=== PATIENT | female | born 1940 | race Caucasian/White ===

== ENCOUNTER 2018-04-07 09:46 | Inpatient (IN) ==
[2018-04-07] MEDS ORDERED: SODIUM CHLORIDE 0.9% 1000ML 1,000 ML IV SCH (10:15)
--- NOTE | 2018-04-07 10:23 | XRay Report ---
XR chest 1V portable CLINICAL HISTORY: weakness COMPARISON STUDY: Chest radiograph October 28, 2009. FINDINGS: There is no pneumothorax. Small to moderate right and small left pleural effusions are note d. There is pulmonary vascular congestion with suspected mild pulmonary edema. There is right infrahi lar mass-like opacity with volume loss. There is mild left basilar opacity. There is no pneumothorax. IMPRESSION: 1. Mild pulmonary edema with small to moderate right and small left pleural effusions. 2. Rotated study with mass-like right infrahilar opacity with volume loss. This may reflect pneumonia , atelectasis or neoplastic process. Short-term follow-up PA and lateral chest radiographs are recomm ended to ensure resolution. Electronically signed by: Melchor Olivas M.D. 04/07/2018 10:21 AM
[2018-04-07 10:41] LABS: Basophils # (auto) 0.02 K/uL (0-0.2); Basophils % (auto) 0.3 %; Eosinophils # (auto) 0.01 K/uL (0-0.5); Eosinophils % (auto) 0.2 %; Hemoglobin 12.2 g/dL (12.0-16.0); Immature Granulocytes # (auto) 0.01 K/uL (0.00-0.02); Immature Granulocytes % (auto) 0.2 %; Lymphocytes # (auto) 0.56 K/uL (1.2-3.4); Lymphocytes % (auto) 9.2 %; Mean Corpuscular Hgb Conc 30.5 g/dL (32-36); Mean Corpuscular Volume 77.1 fL (80-100); Mean Platelet Volume 11.2 fL (7.4-10.4); Monocytes # (auto) 0.61 K/uL (0.11-0.59); Neutrophils % (auto) 80.1 %; Platelet Count 278 K/uL (130-400); RDW Standard Deviation 52.5 fL (36.4-46.3); Red Blood Count 5.19 M/uL (4.2-5.4); White Blood Count 6.11 K/uL (4.8-10.8)
[2018-04-07 10:53] LABS: Appearance Urine Cloudy (Clear); Bacteria Urine Automated Negative (Negative); Color Urine Dark Yellow; Glucose Urine UA Negative (Negative); Ketones Urine Trace (Negative); Leukocyte Esterase Urine Negative (Negative); Nitrite Urine Negative (Negative); Protein Urine Trace (Negative); Specific Gravity Urine 1.022 (1.000-1.030); Urobilinogen Urine Negative (Negative)
[2018-04-07 10:57] LABS: Alanine Aminotransferase 14 U/L (12-78); Albumin Level 3.1 gm/dl (3.4-5.0); Aspartate Aminotransferase 16 U/L (15-37); BUN Creatinine Ratio 18.8 (10-20); Blood Urea Nitrogen 27 mg/dl (7-18); Calcium 8.6 mg/dl (8.5-10.1); Carbon Dioxide 22 mmol/L (21-32); Chloride 108 mmol/L (98-107); Est GFR (African American) 39.9; Est GFR (Non-African American) 34.5; Glucose 91 mg/dl (70-99); Potassium 4.3 mmol/L (3.5-5.1); Sodium 138 mmol/L (136-145)
[2018-04-07 11:08] LABS: Albumin Globulin Ratio 0.8 (0.9-2); Alkaline Phosphatase 74 U/L (45-117); Bilirubin,Total 1.2 mg/dl (0.2-1); Creatine Kinase 159 U/L (26-192); Globulin 3.8 gm/dl (2.5-4.0); Total Protein 6.9 gm/dl (6.4-8.2); Troponin I 0.015 ng/ml (0-0.045)
[2018-04-07 11:11] LABS: Bilirubin Urine Negative (Negative); Ictotest Urine Negative (Negative)
[2018-04-07 11:22] LABS: Mucus Urine Present (None Prsent)
[2018-04-07 11:23] LABS: Epithelial Cell Urine Auto 0-5 /lpf (0-5)
--- NOTE | 2018-04-07 11:30 | CT Scan Report ---
CT OF THE HEAD WITHOUT CONTRAST CLINICAL HISTORY: Confusion. COMPARISON STUDY: No previous studies for comparison. CT DOSE: 537.48 mGy.cm TECHNIQUE: Helical axial images of the head were obtained without IV contrast. Automated exposure con trol was utilized for the study. A dose lowering technique was utilized adhering to the principles o f ALARA. FINDINGS: No acute intracranial hemorrhage, midline shift or mass effect is present. Brain findings n ormal for age. Ventricular system is unremarkable. Basilar cisterns are patent. There are no extra-ax ial collections. White matter hypodensity suggests small vessel disease. There are no findings to sug gest acute dural sinus thrombosis or acute territorial infarct. There are no significant calvarial ab normalities. Scattered venous gas likely from IV insertion is noted. IMPRESSION: No acute intracranial findings. Electronically signed by: Melchor Olivas M.D. 04/07/2018 11:29 AM
[2018-04-07] MEDS ORDERED: LEVOFLOXACIN/D5W 750 MG/150 ML BAG IV STA (12:08)
[2018-04-07] MEDS ORDERED: INFLUENZA ADMINISTRATION CHARGE ONE (14:30)
[2018-04-07] MEDS ORDERED: PNEUMOCOCCAL ADMINISTRATION CHARGE ONE (14:30)
[2018-04-07] MEDS ORDERED: PNEUMOCOCCAL POLYSACCHARIDES 25 MCG/0.5 ML VIAL/SYR IM ONE (14:30)
[2018-04-07] MEDS ORDERED: INFLUENZA VACCINE HIGH DOSE 65+ 0.5 ML SYR IM ONE (14:30)
--- NOTE | 2018-04-07 14:47 | History & Physical Report ---
Date of Service April 07, 2018 Assessment & Plan (1) Altered mental status: Presented with acute confusion with the history of ongoing confusion for 2 months No documented history of dementia May be contributed by lung mass/pneumonia and acute renal impairment Will observe in telemetry unit Present on Admission?: Yes (2) Pneumonia: CXR reported as mass-like right infrahilar opacity with volume loss Malignancy has to be ruled out For now we will treat with antibiotic Will need to have a PA and lateral view for further evaluation in a day or 2 May need a CAT scan of the chest and pulmonary evaluation (3) Mass of right lung: The x-ray was poor in quality Rule out any malignancy Has to have dedicated PA and lateral view in a day or 2 and/or CAT scan of the chest Likely to need pulmonary evaluation for further management and diagnosis (4) Hypertension: Has been on lisinopril for blood pressure control With acute kidney injury, hold lisinopril for now May need to change antihypertensive (5) Hypothyroidism: Has been on 112 mcg of thyroxine Not sure if she has been taking TSH-we will check free T3 and free T4 Continue with current dose of supplement (6) Acute kidney injury superimposed on chronic kidney disease: Seems to be dehydrated with acute kidney kidney injury Chest x-ray reported as mild congestion Will get echo to evaluate LV function For now cautious amount of IV fluid and monitor kidney function (7) Major depressive disorder: Has not been taking any medicine now May need to have psychiatric evaluation while in the hospital Also has history of problem with swallowing We will get speech evaluation while in the hospital Discussed with and son Warned against possible malignancy History of Present Illness Chief Complaint: Acute confusion with occasional events for the last 2 months. Occasional dizziness and shortness of breath. Primary Care Provider: Shabbir Amaya She is a 77-year-old female with significant past medical history of major depression chronic kidney disease stage III anxiety estimate esophageal reflux hypertension and hypothyroidism apparently has not been to her primary care for more than 5 years. She was brought into the emergency room with acute confusion with a history of on and off confusion for more than 2 months. The history is taken from the son, [id number] and the . According to the she has been complaining of some shortness of breath on exertion and also occasional dizziness but no significant history of fall. The also reported that she has been having some problem with swallowing recently. The family members are not aware whether the patient has been losing any weight are not. She has not had any preventive workup for a long time. In ER she was confused but otherwise without any symptoms and distress at presentation. Apparent investigation revealed that she has right perihilar mass and TSH of 27 with acute renal injury. She was admitted to telemetry unit for continuation of care. Allergies Allergy/AdvReac Type Severity Reaction Status Date / Time adhesive Allergy Unknown allergy to Verified 04/07/18 11:11 tape, bandaids Beta-Blockers AdvReac Severe low heart Verified 04/07/18 11:11 (Beta-Adrenergic Bloc rate Home Medications Home Medications Medication Instructions Recorded Confirmed Type levothyroxine 112 mcg PO DAILY 04/07/18 04/07/18 History lisinopril 40 mg PO DAILY 04/07/18 04/07/18 History ranitidine HCl 300 mg PO DAILY 04/07/18 04/07/18 History Past Med/Surg History Medical History Hypertension (Chronic) Social History Current Living Situation: Spouse Other Information That Helps Us Care for You: No Feels Safe at Home: Yes Safety Concerns: Feels Safe At This Time Smoking Status: Former smoker Do You Dip or Chew Tobacco: No Smoking End Date: 1989 Second Hand Exposure: No Tobacco Cessation Education Requested by Patient: No Hx Alcohol Use: No Hx Substance Use: No Beliefs That Will Affect Care: None Preferred Language: Polish Communication Ability: Effective Communication Ability Comment: some confusion Human Resources Clerk Required: No Review of Systems All systems reviewed & are unremarkable except as noted in HPI & below (The history and the system review was done through family members and the patient) Physical Exam 2 Vital Signs (Past 24 Hours): Last Vital Signs Temp 36.7 C 04/07/18 09:48 Pulse 113 H 04/07/18 13:55 Resp 18 04/07/18 13:55 BP 104/81 04/07/18 13:55 Pulse Ox 91 04/07/18 13:55 Physical Exam: Lying in bed comfortably Constitutional: WD/WN, vitals as above (No apparent distress at rest) + thin (Almost cachectic) Eyes: PERRL, conjunctivae normal, anicteric sclerae ENMT: external ear and nose normal, oropharynx normal Respiratory: normal respiratory effort and + cough (Occasional cough) Auscultation: + diminished lung sounds (Bilaterally at the base with probable bronchial sound right base) Cardiovascular: Rate/Rhythm: regular rate and regular rhythm Heart Sounds: normal S1 and normal S2 Gastrointestinal (Abdomen): Inspection/Auscultation: abdomen normal to inspection and normal bowel sounds Percussion/Palpation: abdomen soft Musculoskeletal: No acute arthritis Neurologic: awake and + confused Generalized weakness Results & Data Laboratory Results Short CBC 04/07/18 Range/Units 10:25 WBC 6.11 (4.8-10.8) K/uL Hgb 12.2 (12.0-16.0) g/dL Hct 40.0 (37-47) % Plt Count 278 (130-400) K/uL BMP 04/07/18 10:25 Sodium 138 Potassium 4.3 Chloride 108 H Carbon Dioxide 22 BUN 27 H Creatinine 1.44 H Glucose 91 Calcium 8.6 Cardiac Enzymes 04/07/18 Range/Units 10:25 Total Creatine Kinase 159 (26-192) U/L Troponin I 0.015 (0-0.045) ng/ml Liver Function 04/07/18 Range/Units 10:25 Total Bilirubin 1.2 H (0.2-1) mg/dl AST 16 (15-37) U/L ALT 14 (12-78) U/L Alkaline Phosphatase 74 (45-117) U/L Albumin 3.1 L (3.4-5.0) gm/dl Urine 04/07/18 Range/Units 10:26 Urine Color Dark Yellow Urine Appearance Cloudy H (Clear) Urine pH 5.0 (4.5-7.5) Ur Specific [place] 1.022 (1.000-1.030) Urine Protein Trace H (Negative) Urine Glucose (UA) Negative (Negative) Medications Administered Current Inpatient Medications Enoxaparin Sodium (Lovenox) 40 mg SQ Q24H [facility] Stop: 05/07/18 13:14 Sodium Chloride (Nss 1000ml) 1,000 mls @ 125 mls/hr IV .Q8H [facility] Stop: 04/07/18 18:14 Last Admin: 04/07/18 10:36 Dose: 125 mls/hr Levofloxacin/Dextrose (Levaquin/D5w) 750 mg in 150 mls @ 100 mls/hr IV Q24H [facility] Stop: 04/14/18 14:29 Sodium Chloride (Nss) 500 mls @ 80 mls/hr IV .Q6H15M [facility] Stop: 04/08/18 09:14 Code Status & VTE Plan Code Status Full code VTE Prophylaxis Plan VTE Prophylaxis will be ordered: Yes _ (1) Altered mental status Altered mental status type: unspecified Coma depth: Coma timing: Qualified Code(s): R41.82 - Altered mental status, unspecified (2) Pneumonia Aspiration pneumonia type: Laterality: right Lung location: lower lobe of lung Pneumonia type: due to unspecified organism Qualified Code(s): J18.1 - Lobar pneumonia, unspecified organism
[2018-04-07] MEDS ORDERED: LEVOFLOXACIN/D5W 750 MG/150 ML BAG IV SCH (15:30)
[2018-04-07] MEDS ORDERED: ENOXAPARIN INJ 40 MG/0.4 ML SYR SQ SCH (16:00)
[2018-04-07] MEDS: SODIUM CHLORIDE 0.9% 1000ML 1,000 ML IV SCH (16:16)
[2018-04-07] MEDS ORDERED: LEVOFLOXACIN CONSULT ACTIVE PRN (16:33)
--- NOTE | 2018-04-07 19:18 | Emergency Department Note ---
Entered by Kailyn Antonio acting as a scribe for ED Provider Note CHIEF COMPLAINT: Confusion HISTORY OF PRESENT ILLNESS: The patient is a 77 year old female who presents to the Emergency Room with complaints of worsening confusion that began several months prior to arrival, per the patient's family. The patient's family states that they had a conversation with the patient last night who stated that she did not remember how she got into her house, being , and was unfamiliar with her house. The patient's family states that the patient has not been to the doctor in several years. Per the patient's family, the patient was previously taking thyroid medication, blood pressure medication, and reflux medication. The patient states that she is still prescribed this medication. The patient states that she remembers previously being on a blood thinner. The patient states that she has a headache and shortness of breath occasionally. The patient states that she was dizzy this morning, and states that she is occasionally lightheaded. Per the patient's family, the patient states that her "house is magical" and "someone is changing the clocks in the house". Pt denies LOC, fevers, chills, diaphoresis, visual changes, neck pain, chest pain, nausea, vomiting, abdominal pain, back pain, melena, hematochezia, urinary symptoms, numbness, weakness, lymphadenopathy, rash, or other complaints. REVIEW OF SYSTEMS: See HPI for pertinent positives and negatives. A total of ten systems were reviewed and were otherwise negative. PMHx/PSHx: Hypertension SOCIAL HISTORY: Patient lives at home. PHYSICAL EXAM: GENERAL: Awake, alert, agitated-appearing, in no distress HENT: Normocephalic, atraumatic. Oropharynx unremarkable. EYES: Normal conjunctiva. Sclera non-icteric. NECK: Supple. No nuchal rigidity. FROM. No masses. RESPIRATORY: Clear to auscultation. No wheezes. No rales. Normal respiratory effort. CARDIAC: Normal rate. Normal rhythm. No murmurs. No rubs. Extremities warm and well perfused. Pulses equal. No JVD. GI: Soft, non-distended. No tenderness to palpation. No rebound or guarding. No masses. RECTAL: Deferred. MUSCULOSKELETAL: Atraumatic. Chest examination reveals no tenderness. The back is symmetrical on inspection without obvious abnormality. There is no CVA tenderness to palpation. No joint edema. LOWER EXTREMITIES: Calves are equal size bilaterally and non-tender. 1+ pitting edema in the bilteral lower extremities. No discoloration. NEURO: Altered sensorium. No sensory or motor deficits noted. Oriented to person only. SKIN: No rash or jaundice noted. EMERGENCY DEPARTMENT COURSE: 1007: Past medical records reviewed. The patient was evaluated in room B7, and a complete history and physical examination were performed. 1200: I checked on the patient and updated her on the results. 1213: I discussed the case with Dr. Mcnulty Hospitalist who will further evaluate the patient. MEDICAL DECISION MAKING: Prior records/ancillary studies reviewed and summarized above. Nursing notes reviewed and agree them. Additional history obtained from family. The patient's history was concerning for altered mental status. Patient oriented to person only Differential diagnosis: Etiologies such as infection, hypoglycemia, electrolyte abnormalities, cardiac sources, intracerebral event, toxicologic, neurologic, as well as others were entertained. Physical examination: Patient was disoriented. ER treatment provided: IV Lock Normal saline hydration IV Levaquin On reassessment the patient felt somewhat better. Diagnostics interpretation by me: ECG: Sinus tachycardia noted The labs revealed an unremarkable CBC and chemistry panel except for mild dehydration. Cardiac markers negative. Urinalysis negative peer Imaging studies: CT scan of the head was negative. Chest x-ray was concerning for possible pneumonia or mass in the right chest. Consultation: A consultation was placed with the hospitalist. The case was discussed and diagnostics were reviewed. The patient was evaluated in the ER for further treatment. IMPRESSION: Altered mental status Pneumonia Right lung mass PLAN: Admit. The scribe's documentation has been prepared under my direction and personally reviewed by me in its entirety. I confirm that the note above accurately reflects all work, treatment, procedures, and medical decision making performed by me. Impression & Plan Altered mental status, Pneumonia, Mass of right lung Past Med/Surg History Medical History Hypertension (Chronic) Social History Current Living Situation: Spouse Other Information That Helps Us Care for You: No Feels Safe at Home: Yes Safety Concerns: Feels Safe At This Time Smoking Status: Former smoker Do You Dip or Chew Tobacco: No Smoking End Date: 1989 Second Hand Exposure: No Tobacco Cessation Education Requested by Patient: No Hx Alcohol Use: No Hx Substance Use: No Beliefs That Will Affect Care: None Preferred Language: Lao Communication Ability: Effective Communication Ability Comment: some confusion String Cutter Required: No Results & Data Vital Signs Vital Signs - 24 hr 04/07/18 09:48 04/07/18 10:35 04/07/18 12:23 Temperature 36.7 C Temperature Source Oral Sepsis Recent Fever Within 48 Hours No Sepsis New/Unexplained Change in Mental Status No Sepsis Action Taken by Nursing No Action Required Pulse Rate - Lying 110 H Pulse Rate - Sitting 112 H Pulse Rate - Standing 110 H Pulse Rate 117 H Pulse Rate [Right Apical] Pulse Rhythm [Right Apical] Pulse Strength [Right Apical] Respiratory Rate 20 Respiratory Effort / Characteristics Non-Labored Spontaneous Respiratory Depth Normal Respiratory Pattern Regular Blood Pressure - Lying 96/72 L Blood Pressure - Sitting 103/70 Blood Pressure- Standing 95/69 L Blood Pressure 100/67 Blood Pressure [Right Arm] Blood Pressure Mean 78 Blood Pressure Mean [Right Arm] Blood Pressure Position [Right Arm] Pulse Oximetry 94 97 Oxygen Delivery Method Room Air Room Air Room Air 04/07/18 13:55 Temperature Temperature Source Sepsis Recent Fever Within 48 Hours Sepsis New/Unexplained Change in Mental Status Sepsis Action Taken by Nursing Pulse Rate - Lying Pulse Rate - Sitting Pulse Rate - Standing Pulse Rate Pulse Rate [Right Apical] 113 H Pulse Rhythm [Right Apical] Regular Pulse Strength [Right Apical] Normal Respiratory Rate 18 Respiratory Effort / Characteristics Non-Labored Spontaneous Respiratory Depth Normal Respiratory Pattern Regular Blood Pressure - Lying Blood Pressure - Sitting Blood Pressure- Standing Blood Pressure Blood Pressure [Right Arm] 104/81 Blood Pressure Mean Blood Pressure Mean [Right Arm] 88 Blood Pressure Position [Right Arm] Lying Pulse Oximetry 91 Oxygen Delivery Method Room Air Home Medications Current Medication List: was personally reviewed by me Laboratory Data Attestation: I reviewed the patient's lab results. Result diagrams: 04/07/18 10:25 04/07/18 10:25 Lab Results 04/07/18 04/07/18 04/07/18 Range/Units 10:25 10:25 10:26 WBC 6.11 (4.8-10.8) K/uL RBC 5.19 (4.2-5.4) M/uL Hgb 12.2 (12.0-16.0) g/dL Hct 40.0 (37-47) % MCV 77.1 L (80-100) fL MCH 23.5 L (25-34) pg MCHC 30.5 L (32-36) g/dL RDW Std Deviation 52.5 H (36.4-46.3) fL RDW Coeff of Ran 19.0 H (11.5-14.5) % Plt Count 278 (130-400) K/uL MPV 11.2 H (7.4-10.4) fL Immature Gran % (Auto) 0.2 % Neut % (Auto) 80.1 % Lymph % (Auto) 9.2 % [place] % (Auto) 10.0 % Eos % (Auto) 0.2 % Baso % (Auto) 0.3 % Immature Gran # (Auto) 0.01 (0.00-0.02) K/uL Neut # (Auto) 4.90 (1.4-6.5) K/uL Lymph # (Auto) 0.56 L (1.2-3.4) K/uL [place] # (Auto) 0.61 H (0.11-0.59) K/uL Eos # (Auto) 0.01 (0-0.5) K/uL Baso # (Auto) 0.02 (0-0.2) K/uL Sodium 138 (136-145) mmol/L Potassium 4.3 (3.5-5.1) mmol/L Chloride 108 H (98-107) mmol/L Carbon Dioxide 22 (21-32) mmol/L Anion Gap 8.0 (3-11) BUN 27 H (7-18) mg/dl Creatinine 1.44 H (0.6-1.2) mg/dl Est Cr Clr Drug Dosing Not Reportable Est GFR ( Amer) 39.9 Est GFR (Non-Af Amer) 34.5 BUN/Creatinine Ratio 18.8 (10-20) Glucose 91 (70-99) mg/dl Calcium 8.6 (8.5-10.1) mg/dl Magnesium 2.0 (1.8-2.4) mg/dl Total Bilirubin 1.2 H (0.2-1) mg/dl AST 16 (15-37) U/L ALT 14 (12-78) U/L Alkaline Phosphatase 74 (45-117) U/L Total Creatine Kinase 159 (26-192) U/L Troponin I 0.015 (0-0.045) ng/ml Total Protein 6.9 (6.4-8.2) gm/dl Albumin 3.1 L (3.4-5.0) gm/dl Globulin 3.8 (2.5-4.0) gm/dl Albumin/Globulin Ratio 0.8 L (0.9-2) TSH 27.200 H (0.300-4.500) uIu/ml Urine Color Dark Yellow Urine Appearance Cloudy H (Clear) Urine pH 5.0 (4.5-7.5) Ur Specific [place] 1.022 (1.000-1.030) Urine Protein Trace H (Negative) Urine Glucose (UA) Negative (Negative) Urine Ketones Trace H (Negative) Urine Blood Negative (Negative) Urine Nitrite Negative (Negative) Urine Bilirubin Negative (Negative) Urine Urobilinogen Negative (Negative) Ur Leukocyte Esterase Negative (Negative) Urine WBC (Auto) 1-5 (0-5) /hpf Urine RBC (Auto) 0-4 (0-4) /hpf U Hyaline Cast (Auto) 5-10 H (0-5) /lpf U Epithel Cells (Auto) 0-5 (0-5) /lpf Urine Bacteria (Auto) Negative (Negative) Urine Mucus Present H (None Prsent) Administered Medications Enoxaparin Sodium (Lovenox) 40 mg SQ Q24H [facility] Stop: 05/07/18 15:59 Last Admin: 04/07/18 16:15 Dose: 40 mg Levofloxacin/Dextrose (Levaquin/D5w) 750 mg in 150 mls @ 100 mls/hr IV Q48H [facility] ; Protocol Stop: 04/14/18 15:29 Last Infusion: 04/07/18 18:31 Dose: 0 mls/hr Admin: 04/07/18 16:14 Dose: 100 mls/hr Sodium Chloride (Nss 1000ml) 1,000 mls @ 80 mls/hr IV .[id number] [facility] Stop: 04/08/18 09:44 Last Admin: 04/07/18 16:16 Dose: 80 mls/hr Ranitidine HCl (Zantac) 300 mg PO DAILY [facility] Stop: 05/07/18 15:14 Last Admin: 04/07/18 16:14 Dose: 300 mg Discontinued Medications Sodium Chloride (Nss 1000ml) 1,000 mls @ 125 mls/hr IV .Q8H [facility] Stop: 04/07/18 18:14 Last Infusion: 04/07/18 15:59 Dose: 0 mls/hr Admin: 04/07/18 10:36 Dose: 125 mls/hr Levofloxacin/Dextrose (Levaquin/D5w) 750 mg in 150 mls @ 100 mls/hr IV NOW STA Stop: 04/07/18 13:37 Last Admin: 04/07/18 15:41 Dose: Not Given Imaging Data Radiologist's Impression: Radiology results as stated below per my review and the radiologist's interpretation: XR chest 1V portable CLINICAL HISTORY: weakness COMPARISON STUDY: Chest radiograph October 28, 2009. FINDINGS: There is no pneumothorax. Small to moderate right and small left pleural effusions are noted. There is pulmonary vascular congestion with suspected mild pulmonary edema. There is right infrahilar mass-like opacity with volume loss. There is mild left basilar opacity. There is no pneumothorax. IMPRESSION: 1. Mild pulmonary edema with small to moderate right and small left pleural effusions. 2. Rotated study with mass-like right infrahilar opacity with volume loss. This may reflect pneumonia, atelectasis or neoplastic process. Short-term follow-up PA and lateral chest radiographs are recommended to ensure resolution. Electronically signed by: Melchor Olivas M.D. 04/07/2018 10:[address] OF THE HEAD WITHOUT CONTRAST CLINICAL HISTORY: Confusion. COMPARISON STUDY: No previous studies for comparison. CT DOSE: 537.48 mGy.cm TECHNIQUE: Helical axial images of the head were obtained without IV contrast. Automated exposure control was utilized for the study. A dose lowering technique was utilized adhering to the principles of ALARA. FINDINGS: No acute intracranial hemorrhage, midline shift or mass effect is present. Brain findings normal for age. Ventricular system is unremarkable. Basilar cisterns are patent. There are no extra-axial collections. White matter hypodensity suggests small vessel disease. There are no findings to suggest acute dural sinus thrombosis or acute territorial infarct. There are no significant calvarial abnormalities. Scattered venous gas likely from IV insertion is noted. IMPRESSION: No acute intracranial findings. Electronically signed by: Melchor Olivas M.D. 04/07/2018 11:29 AM ECG Data Attestation: I personally reviewed and interpreted this ECG as follows: Indication: altered mental status Rate (beats per minute): 112 Rhythm: sinus tachycardia Findings: + other (poor baseline data), + nonspecific-ST abn and + PVC Additional Comments: Repeat ECG: Sinus tachycardia with a rate of 110. Non- specific ST abnormalities. No ST elevation. Blood Pressure Blood Pressure Findings: Normal blood pressure Discharge Plan Visit Data *Final* Discharge Date/Time: 04/07/18 14:05 Chief Complaint: Confusion Stated Complaint: MEMORY LOSS ED Provider: Shabbir Naik Discharge Problem: Altered mental status, Pneumonia, Mass of right lung Patient Disposition: Admitted As Inpatient Discharge Instructions Interventions: ED Discharge Assessment Last Done: 04/07/18 14:05 The scribe's documentation has been prepared under my direction and personally reviewed by me in its entirety. I confirm that the note above accurately reflects all work, treatment, procedures, and medical decision making performed by me.
[2018-04-08] MEDS: SODIUM CHLORIDE 0.9% 1000ML 1,000 ML IV SCH (01:54)
[2018-04-08] MEDS: LEVOTHYROXINE SODIUM 112 MCG TABLET PO SCH ×2 (06:15→13:09)
[2018-04-08 07:20] LABS: Basophils # (auto) 0.01 K/uL (0-0.2); Basophils % (auto) 0.2 %; Eosinophils # (auto) 0.01 K/uL (0-0.5); Eosinophils % (auto) 0.2 %; Hematocrit (blood only) 38.8 % (37-47); Immature Granulocytes # (auto) 0.03 K/uL (0.00-0.02); Immature Granulocytes % (auto) 0.5 %; Lymphocytes # (auto) 0.86 K/uL (1.2-3.4); Lymphocytes % (auto) 14.2 %; Mean Corpuscular Hgb Conc 30.9 g/dL (32-36); Mean Corpuscular Volume 77.1 fL (80-100); Monocytes # (auto) 0.54 K/uL (0.11-0.59); Monocytes % (auto) 8.9 %; Platelet Count 237 K/uL (130-400); RDW Coefficient of Variation 19.3 % (11.5-14.5); RDW Standard Deviation 52.6 fL (36.4-46.3); Red Blood Count 5.03 M/uL (4.2-5.4); White Blood Count 6.05 K/uL (4.8-10.8)
[2018-04-08 08:03] LABS: BUN Creatinine Ratio 20.6 (10-20); Calcium 8.2 mg/dl (8.5-10.1); Creatinine Clr Calc Pharmacy 30.5 ml/min; Est GFR (African American) 45.6; Est GFR (Non-African American) 39.4; Potassium 4.2 mmol/L (3.5-5.1)
[2018-04-08 08:08] LABS: Ferritin 20.2 ng/ml (8-388); Phosphorus 2.6 mg/dl (2.5-4.9); T4 Free Thyroxine 0.62 ng/dl (0.8-1.6)
[2018-04-08 08:24] LABS: Folate (Folic Acid) 11.46 ng/ml (>5.38)
--- NOTE | 2018-04-08 09:41 | Hospitalist Progress Note ---
Date of Service April 08, 2018 Assessment & Plan (1) Altered mental status: Presented with acute confusion with the history of ongoing confusion for 2 months No documented history of dementia unclear etiology at this time, multifactorial? Hypothyroidism Pneumonia management noted below tried to contact to ascertain baseline, no answer and will try again later will consult Neuro (2) Pneumonia: vs Mass? afebrile, denies cough CT chest ordered on empiric Levaquin may need Pulm consult (3) Mass of right lung: CT chest ordered today (4) Cardiomyopathy: newly diagnosed (+) right pleural effusion, otherwise no signs of overt volume overload Cardiology consulted (5) Hypothyroidism: Has been on 112 mcg of thyroxine high TSH, low t4/t3 will ask family if patient has been adherent to Levothyroxin 112mcg, suspect she is not (6) Acute kidney injury superimposed on chronic kidney disease: given iV fluids crea back to baseline d/c IV fluids encouraged PO intake monitor (7) Hypertension: Lisinopril on hold in light of elevated crea BP on the low side monitor (8) Major depressive disorder: Has not been taking any medicine now -- mood appears to be stable will discuss with family Also has history of problem with swallowing -- Speech eval pending (9) Discharge planning issues: usually lives with family at home (10) DVT prophylaxis: SCDs, heparin Subjective ff up for altered mental status seen resting in bed, comfortable oriented x 2 but intermittently gets confused- states is mother's day, etc. denies chest pain, palpitations, dizziness denies shortness of breath, cough, hemoptysis no problems voiding denies other symptoms Physical Exam 2 Vital Signs (Past 24 Hours): Last Vital Signs Temp 36.3 C L 04/08/18 07:39 Pulse 115 H 04/08/18 07:39 Resp 18 04/08/18 07:39 BP 102/73 04/08/18 07:39 Pulse Ox 93 04/08/18 07:39 Physical Exam: General- oriented x 1-2, not in distress, speaks in sentences with no effort or accessory muscle use Head- atraumatic Eyes- PERRL, EOMI, anicteric ENT- oropharynx clear Neck- supple, no JVD, no adenopathy, no thyromegaly; carotids +2/2, no bruits appreciated Lungs- clear to auscultation bilaterally, no rales/wheezes Heart- tachycardic; no murmur, no gallop, no rub appreciated Abdomen- normal bowel sounds, nondistended, soft, nontender, no masses or hepatosplenomegaly Extremities- trace pretibial edema, no calf tenderness; peripheral pulses intact Neuro- alert, oriented x 1-2; CN 2-12 grossly intact; motor 5/5 bilaterally; sensation 100% on all extremities; no other gross focal neurologic deficits Skin- warm & dry Results & Data Laboratory Results Laboratory Results - last 24 hr 04/07/18 04/07/18 04/07/18 10:25 10:25 10:26 WBC 6.11 RBC 5.19 Hgb 12.2 Hct 40.0 MCV 77.1 L MCH 23.5 L MCHC 30.5 L RDW Std Deviation 52.5 H RDW Coeff of Ran 19.0 H Plt Count 278 MPV 11.2 H Immature Gran % (Auto) 0.2 Neut % (Auto) 80.1 Lymph % (Auto) 9.2 Jackson % (Auto) 10.0 Eos % (Auto) 0.2 Baso % (Auto) 0.3 Immature Gran # (Auto) 0.01 Neut # (Auto) 4.90 Lymph # (Auto) 0.56 L Jackson # (Auto) 0.61 H Eos # (Auto) 0.01 Baso # (Auto) 0.02 Sodium 138 Potassium 4.3 Chloride 108 H Carbon Dioxide 22 Anion Gap 8.0 BUN 27 H Creatinine 1.44 H Est Cr Clr Drug Dosing Not Reportable Est GFR ( Amer) 39.9 Est GFR (Non-Af Amer) 34.5 BUN/Creatinine Ratio 18.8 Glucose 91 Calcium 8.6 Phosphorus Magnesium 2.0 Iron TIBC Ferritin Total Bilirubin 1.2 H AST 16 ALT 14 Alkaline Phosphatase 74 Total Creatine Kinase 159 Troponin I 0.015 Total Protein 6.9 Albumin 3.1 L Globulin 3.8 Albumin/Globulin Ratio 0.8 L Vitamin B12 Folate TSH 27.200 H Free T4 Free T3 Urine Color Dark Yellow Urine Appearance Cloudy H Urine pH 5.0 Ur Specific Vernal 1.022 Urine Protein Trace H Urine Glucose (UA) Negative Urine Ketones Trace H Urine Blood Negative Urine Nitrite Negative Urine Bilirubin Negative Urine Urobilinogen Negative Ur Leukocyte Esterase Negative Urine WBC (Auto) 1-5 Urine RBC (Auto) 0-4 U Hyaline Cast (Auto) 5-10 H U Epithel Cells (Auto) 0-5 Urine Bacteria (Auto) Negative Urine Mucus Present H 04/08/18 04/08/18 04/08/18 06:59 06:59 06:59 WBC 6.05 RBC 5.03 Hgb 12.0 Hct 38.8 MCV 77.1 L MCH 23.9 L MCHC 30.9 L RDW Std Deviation 52.6 H RDW Coeff of Ran 19.3 H Plt Count 237 MPV 10.0 Immature Gran % (Auto) 0.5 Neut % (Auto) 76.0 Lymph % (Auto) 14.2 Jackson % (Auto) 8.9 Eos % (Auto) 0.2 Baso % (Auto) 0.2 Immature Gran # (Auto) 0.03 H Neut # (Auto) 4.60 Lymph # (Auto) 0.86 L Jackson # (Auto) 0.54 Eos # (Auto) 0.01 Baso # (Auto) 0.01 Sodium 139 Potassium 4.2 Chloride 109 H Carbon Dioxide 20 L Anion Gap 10.0 BUN 27 H Creatinine 1.29 H Est Cr Clr Drug Dosing 30.5 Est GFR ( Amer) 45.6 Est GFR (Non-Af Amer) 39.4 BUN/Creatinine Ratio 20.6 H Glucose 74 Calcium 8.2 L Phosphorus 2.6 Magnesium Iron 29 L TIBC 312 Ferritin 20.2 Total Bilirubin AST ALT Alkaline Phosphatase Total Creatine Kinase Troponin I Total Protein Albumin Globulin Albumin/Globulin Ratio Vitamin B12 722 Folate 11.46 TSH Free T4 0.62 L Free T3 Urine Color Urine Appearance Urine pH Ur Specific Vernal Urine Protein Urine Glucose (UA) Urine Ketones Urine Blood Urine Nitrite Urine Bilirubin Urine Urobilinogen Ur Leukocyte Esterase Urine WBC (Auto) Urine RBC (Auto) U Hyaline Cast (Auto) U Epithel Cells (Auto) Urine Bacteria (Auto) Urine Mucus 04/08/18 06:59 WBC RBC Hgb Hct MCV MCH MCHC RDW Std Deviation RDW Coeff of Ran Plt Count MPV Immature Gran % (Auto) Neut % (Auto) Lymph % (Auto) Jackson % (Auto) Eos % (Auto) Baso % (Auto) Immature Gran # (Auto) Neut # (Auto) Lymph # (Auto) Jackson # (Auto) Eos # (Auto) Baso # (Auto) Sodium Potassium Chloride Carbon Dioxide Anion Gap BUN Creatinine Est Cr Clr Drug Dosing Est GFR ( Amer) Est GFR (Non-Af Amer) BUN/Creatinine Ratio Glucose Calcium Phosphorus Magnesium Iron TIBC Ferritin Total Bilirubin AST ALT Alkaline Phosphatase Total Creatine Kinase Troponin I Total Protein Albumin Globulin Albumin/Globulin Ratio Vitamin B12 Folate TSH Free T4 Free T3 0.50 L Urine Color Urine Appearance Urine pH Ur Specific Vernal Urine Protein Urine Glucose (UA) Urine Ketones Urine Blood Urine Nitrite Urine Bilirubin Urine Urobilinogen Ur Leukocyte Esterase Urine WBC (Auto) Urine RBC (Auto) U Hyaline Cast (Auto) U Epithel Cells (Auto) Urine Bacteria (Auto) Urine Mucus _ (1) Altered mental status Altered mental status type: unspecified Coma depth: Coma timing: Qualified Code(s): R41.82 - Altered mental status, unspecified (2) Pneumonia Aspiration pneumonia type: Laterality: right Lung location: lower lobe of lung Pneumonia type: due to unspecified organism Qualified Code(s): J18.1 - Lobar pneumonia, unspecified organism
[2018-04-08 10:47] LABS: INR 1.3 (0.9-1.1); Prothrombin Time 12.9 Seconds (9.0-12.0)
--- NOTE | 2018-04-08 11:22 | Cardiology Consultation ---
Date of Consultation April 08, 2018 Assessment & Plan (1) Cardiomyopathy: Patient presented acutely with confusion of several months duration echocardiogram in course of evaluation demonstrated diffuse LV dysfunction EF 20 -25% Etiology uncertain at this time hypothyroidism may be contributing as well as atrial flutter with poorly controlled ventricular response rate Begin guideline based appropriate medical therapies with Toprol-XL 12.5 mg twice per day to aid in heart rate control and begin appropriate therapies for cardiomyopathy. Add JAMES inhibitor as blood pressure allows. No overt volume overload currently (2) Hypothyroidism: Beginning replacement (3) Atypical atrial flutter: As above heart rates poorly controlled will begin low-dose beta-franny as thyroid is being replaced. We will need to discuss anticoagulation though in the setting of multiple current issues including iron deficiency anemia and chest mass will hold for time being (4) Microcytic anemia: (5) Mass of right lung: History of Present Illness Reason for Consultation: Newly observed cardiomyopathy Requesting Physician: Dr. Ramirez Attending Physician: Merced Ramirez MD History of Present Illness Patient is a 77-year-old female extremely poor historian with information gained by review of records some discussion with patient. Her past medical history is notable for past hypothyroidism, chronic renal insufficiency. She admittedly has not sought doctor's care for at least 5 years and is uncertain whether she has been taking any medication Patient presented this admission with increasing confusion per report she states she may have fallen yesterday but no injury. On ER presentation she was found to be markedly hypothyroid and in atrial flutter. X-ray reflects possible right hilar mass laboratory studies also notes microcytic anemia. Patient denies any prior history of cardiac disease though she is a poor historian and accuracy of information is limited. She does admit to some dyspnea on exertion denies any chest pain. Notes no syncope or near syncope. Feels she has lost some weight appetite's been fair. Notes no fevers chills or cough melena or hematochezia dysuria hematuria. Has not aware of any tachypalpitations edema or orthopnea Allergies Allergy/AdvReac Type Severity Reaction Status Date / Time adhesive Allergy Unknown allergy to Verified 04/07/18 11:11 tape, bandaids Beta-Blockers AdvReac Severe low heart Verified 04/07/18 11:11 (Beta-Adrenergic Bloc rate Home Medications Home Medications Medication Instructions Recorded Confirmed Type levothyroxine 112 mcg PO DAILY 04/07/18 04/07/18 History lisinopril 40 mg PO DAILY 04/07/18 04/07/18 History ranitidine HCl 300 mg PO DAILY 04/07/18 04/07/18 History Patient History Medical History Hypertension (Chronic) Social History Current Living Situation: Spouse Other Information That Helps Us Care for You: No Feels Safe at Home: Yes Safety Concerns: Feels Safe At This Time Smoking Status: Former smoker Do You Dip or Chew Tobacco: No Smoking End Date: 1989 Second Hand Exposure: No Tobacco Cessation Education Requested by Patient: No Hx Alcohol Use: No Hx Substance Use: No Beliefs That Will Affect Care: None Preferred Language: Eritrean Communication Ability: Effective Communication Ability Comment: some confusion 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 Review of Systems Review of systems are as per HPI patient poor historian and limited accuracy or unobtainable Physical Exam 2 Vital Signs (Past 24 Hours): Last Vital Signs Temp 36.3 C L 04/08/18 07:39 Pulse 115 H 04/08/18 07:39 Resp 18 04/08/18 07:39 BP 102/73 04/08/18 07:39 Pulse Ox 93 04/08/18 07:39 Constitutional: + thin; no acute distress Eyes: PERRL, conjunctivae normal, anicteric sclerae Neck: trachea midline, no thyromegaly Cardiovascular: Rate/Rhythm: regular rate Heart Sounds: normal S1, normal S2 and + murmur (Grade 1/6 systolic murmur at apex); no gallop Extremities: + edema ([place] edema to the knees) Gastrointestinal (Abdomen): Percussion/Palpation: abdomen soft; abdomen nontender and no hepatosplenomegaly Musculoskeletal: no cyanosis or clubbing, extremities motor strength 5/5 Skin: no rashes, warm and dry Neurologic: PERRL, EOMI, accommodation nl, no face palsy, no dysarthria Results & Data Laboratory Results Laboratory Results - last 24 hr 04/08/18 04/08/18 04/08/18 06:59 06:59 06:59 WBC 6.05 RBC 5.03 Hgb 12.0 Hct 38.8 MCV 77.1 L MCH 23.9 L MCHC 30.9 L RDW Std Deviation 52.6 H RDW Coeff of Ran 19.3 H Plt Count 237 MPV 10.0 Immature Gran % (Auto) 0.5 Neut % (Auto) 76.0 Lymph % (Auto) 14.2 Kleberg % (Auto) 8.9 Eos % (Auto) 0.2 Baso % (Auto) 0.2 Immature Gran # (Auto) 0.03 H Neut # (Auto) 4.60 Lymph # (Auto) 0.86 L Kleberg # (Auto) 0.54 Eos # (Auto) 0.01 Baso # (Auto) 0.01 PT INR Sodium 139 Potassium 4.2 Chloride 109 H Carbon Dioxide 20 L Anion Gap 10.0 BUN 27 H Creatinine 1.29 H Est Cr Clr Drug Dosing 30.5 Est GFR ( Amer) 45.6 Est GFR (Non-Af Amer) 39.4 BUN/Creatinine Ratio 20.6 H Glucose 74 Calcium 8.2 L Phosphorus 2.6 Iron 29 L TIBC 312 Ferritin 20.2 Vitamin B12 722 Folate 11.46 Free T4 0.62 L Free T3 04/08/18 04/08/18 06:59 10:28 WBC RBC Hgb Hct MCV MCH MCHC RDW Std Deviation RDW Coeff of Ran Plt Count MPV Immature Gran % (Auto) Neut % (Auto) Lymph % (Auto) Kleberg % (Auto) Eos % (Auto) Baso % (Auto) Immature Gran # (Auto) Neut # (Auto) Lymph # (Auto) Kleberg # (Auto) Eos # (Auto) Baso # (Auto) PT 12.9 H INR 1.3 H Sodium Potassium Chloride Carbon Dioxide Anion Gap BUN Creatinine Est Cr Clr Drug Dosing Est GFR ( Amer) Est GFR (Non-Af Amer) BUN/Creatinine Ratio Glucose Calcium Phosphorus Iron TIBC Ferritin Vitamin B12 Folate Free T4 Free T3 0.50 L Medications Administered Echocardiogram: Diffuse LV dysfunction EF 20-25% no regional wall motion abnormality with severe mitral and tricuspid insufficiency ECG Additional Comments: 07-APR-2018 10:35:13 [facility] Atypical atrial flutter with variable A-V block with premature ventricular or aberrantly conducted complexes Nonspecific T wave abnormality Abnormal ECG When compared with ECG of 30-OCT-2009 09:27, Atrial flutter has replaced Sinus rhythm Vent. rate has increased BY 42 BPM Nonspecific T wave abnormality now evident in Inferior leads T wave inversion now evident in Lateral leads
[2018-04-08] MEDS: METOPROLOL SUCC 25MG EXT REL TAB PO SCH (12:58)
--- NOTE | 2018-04-08 14:33 | Neurology Consultation ---
Date of Consultation April 08, 2018 Assessment & Plan (1) Altered mental status: 1. TSH - not taking thyroid replacement- will need restarted 2. B12, folate - WNL will order RPR, thiamine level 3. lung mass- will need work up 4. cardiology on board- EF 25-30 % irregular 5. possible anticoag needed- cardiology holding due to lung mass 6. ERICA- will need iron supplement 7. multiple issues which are contributing to confusion with possible some baseline dementia. correct issues. 8. MRI brain - ordered 9. out patient work up in our office for dementia and baseline after correctable issues are addressed Pt seen and examined. Duration of confusion and it's evolution unclear in discussion with whose accuracy is in question. Sx x 3-4 months. Pt is profoundly hypothyroid, (lung mass excluded on CT chest) with cardiomegaly and decreased EF.Pt is oriented to self, but awake, alert with minor word finding difficulty.She is unable to dtermine number of quarters in 1.75, but is otherwise nonfocal. Pt appears to have a dementia, does not appear delirious. Word finding diff suggests AD, but cannot exclude hypothyroidism. P, replace thyroid, MRI brain, labs for other tx causes of dementia. Will follow with you. NELSON Edwards MD Supervising Physician Co-Signing Physician Notes I have seen and discussed above patient with Dr Lyubov Edwards, neurology History of Present Illness Reason for Consultation: confusion Requesting Physician: Merced Ramirez MD Attending Physician: Merced Ramirez MD History of Present Illness Betsy escamilla s 77 year old female with PMH major depressionm CKD III, anxiety, HTN and hypothyroidism. she has not been seen by her PCP for > 5 years according to her . Her has been trying to get her to the doctor but she has been refusing. She has been complaining of some shortness of breath on exertion and also occasional dizziness but no significant history of fall. She was also having some swallowing issues. She states she is doing ok and wants to go home. denies CP, SOB, abdominal pain, N, V, vision changes, weight loss. She has a PMH smoking but quit a number of years ago. Allergies Allergy/AdvReac Type Severity Reaction Status Date / Time adhesive Allergy Unknown allergy to Verified 04/07/18 11:11 tape, bandaids Beta-Blockers AdvReac Severe low heart Verified 04/07/18 11:11 (Beta-Adrenergic Bloc rate Home Medications Home Medications Medication Instructions Recorded Confirmed Type levothyroxine 112 mcg PO DAILY 04/07/18 04/07/18 History lisinopril 40 mg PO DAILY 04/07/18 04/07/18 History ranitidine HCl 300 mg PO DAILY 04/07/18 04/07/18 History Patient History Medical History Hypertension (Chronic) Social History Current Living Situation: Spouse Other Information That Helps Us Care for You: No Feels Safe at Home: Yes Safety Concerns: Feels Safe At This Time Smoking Status: Former smoker Do You Dip or Chew Tobacco: No Smoking End Date: 1989 Second Hand Exposure: No Tobacco Cessation Education Requested by Patient: No Hx Alcohol Use: No Hx Substance Use: No Beliefs That Will Affect Care: None Preferred Language: Latvian Communication Ability: Effective Communication Ability Comment: some confusion Academic Support Coordinator Required: No Physical Exam 2 Vital Signs (Past 24 Hours): Last Vital Signs Temp 36.4 C L 04/08/18 11:43 Pulse 117 H 04/08/18 12:57 Resp 18 04/08/18 11:43 BP 99/68 L 04/08/18 12:57 Pulse Ox 90 04/08/18 12:57 Physical Exam: Constitutional: appearance thin ill appearing Ears, Nose, Mouth and Throat: mucous membranes moist, no injection and skin normal, eyes normal Cardiovascular: irregular Respiratory: course breath sounds Musculoskeletal: no peripheral edema and good distal pulses Skin: bilateral LE stigmata of neurocutaneous, +1 pitting edema Eyes: extraocular muscles intact (EOMI) and pupils equal, round and reactive to light (PERRL) NEUROLOGIC EXAMINATION: Mental status: Alert and interactive Oriented not oriented to hospital, thinks it is 1988, lives in [place]- but then [facility] Oriented to person Speech fluent with no evidence of aphasia Cranial Nerves smile eye brow raise symmetric Reflexes: Deep tendon reflexes were symmetrical and graded 2/5. Plantar responses were flexor. Sensory: decrease vibration sensation bilateral LE Coordination: finger to nose no bi pass, rapid hand movement slightly dysmetric Gait/Stance: Posture normal. sitting up in bed Motor: Negative for pronator drift of out stretched arms with eyes closed. Strength: biceps triceps hand dietitian consultant bilaterally 5/5, hip flex plantar flex ext 5/5 Results & Data Laboratory Results Abnormal lab results 04/08/18 04/08/18 04/08/18 Range/Units 06:59 06:59 06:59 MCV 77.1 L (80-100) fL MCH 23.9 L (25-34) pg MCHC 30.9 L (32-36) g/dL RDW Std Deviation 52.6 H (36.4-46.3) fL RDW Coeff of Ran 19.3 H (11.5-14.5) % Immature Gran # (Auto) 0.03 H (0.00-0.02) K/uL Lymph # (Auto) 0.86 L (1.2-3.4) K/uL PT (9.0-12.0) Seconds INR (0.9-1.1) Chloride 109 H (98-107) mmol/L Carbon Dioxide 20 L (21-32) mmol/L BUN 27 H (7-18) mg/dl Creatinine 1.29 H (0.6-1.2) mg/dl BUN/Creatinine Ratio 20.6 H (10-20) Calcium 8.2 L (8.5-10.1) mg/dl Iron 29 L (35-150) mcg/dl Free T4 0.62 L (0.8-1.6) ng/dl Free T3 0.50 L (2.3-4.2) pg/ml 04/08/18 Range/Units 10:28 MCV (80-100) fL MCH (25-34) pg MCHC (32-36) g/dL RDW Std Deviation (36.4-46.3) fL RDW Coeff of Ran (11.5-14.5) % Immature Gran # (Auto) (0.00-0.02) K/uL Lymph # (Auto) (1.2-3.4) K/uL PT 12.9 H (9.0-12.0) Seconds INR 1.3 H (0.9-1.1) Chloride (98-107) mmol/L Carbon Dioxide (21-32) mmol/L BUN (7-18) mg/dl Creatinine (0.6-1.2) mg/dl BUN/Creatinine Ratio (10-20) Calcium (8.5-10.1) mg/dl Iron (35-150) mcg/dl Free T4 (0.8-1.6) ng/dl Free T3 (2.3-4.2) pg/ml Diagnostic Findings CT head- No acute intracranial findings. TTE- EF 25-30% aortic stenosis _ (1) Altered mental status Altered mental status type: unspecified Coma depth: Coma timing: Qualified Code(s): R41.82 - Altered mental status, unspecified
--- NOTE | 2018-04-08 14:57 | CT Scan Report ---
CT OF THE CHEST WITHOUT IV CONTRAST CLINICAL HISTORY: Abnormal chest radiograph. Evaluate for mass or effusion. COMPARISON STUDY: Chest radiograph April 07, 2018. CT DOSE: 203.08 mGy.cm TECHNIQUE: Axial images of the chest were obtained without IV contrast. Images were reviewed in the axial, sagittal, and coronal planes. IV contrast was not administered for this examination. Automat ed exposure control was utilized for the study. A dose lowering technique was utilized adhering to t he principles of ALARA. FINDINGS: Marked cardiomegaly is noted. There is a trace pericardial effusion. No enlarged axillary, mediastinal or hilar lymph nodes are present. Moderate right and small left pleural effusions are no yinka. There is no pneumothorax. There is subtotal right lower lobe collapse. Segmental left lower lobe atelectasis is present. Moderate emphysema is present. No masses identified on this examination. Xochitl tral airways are patent. Bony thorax is unremarkable. Anasarca is noted. Small amount of upper abdomi nal ascites is noted. IMPRESSION: 1. Moderate right and small left pleural effusions with subtotal right lower lobe atelectasis which a ccounts for the abnormality on prior chest radiograph. 2. Marked cardiomegaly. Trace pericardial effusion. 3. Moderate emphysema. 4. Small amount of upper abdominal ascites. Anasarca. Electronically signed by: Melchor Olivas M.D. 04/08/2018 2:56 PM
--- NOTE | 2018-04-08 18:25 | Magnetic Resonance Report ---
MRI OF THE BRAIN WITHOUT CONTRAST CLINICAL HISTORY: Sudden onset confusion. COMPARISON STUDY: Head CT April 07, 2018. TECHNIQUE: Utilizing a 1.5 Digna magnet and dedicated coil, multiplanar, multiecho imaging of the bra in was performed without IV contrast. FINDINGS: Exam is moderately compromised by motion artifact but is diagnostic. There are no foci of r estricted diffusion to suggest acute infarct. No acute intracranial hemorrhage, midline shift or mass effect is present. There is moderate atrophy. Mild white matter T2 hyperintense foci suggest mild sm all vessel disease. No intracranial masses identified on this unenhanced exam. Flow-voids for the romel or intracranial vessels are present. Calvarial signal is normal. Sinuses and mastoid air cells appear clear. IMPRESSION: 1. No acute intracranial findings. 2. Moderate atrophy. Minimal small vessel disease. 3. Study mildly compromised by motion artifact. Electronically signed by: Melchor Olivas M.D. 04/08/2018 6:22 PM
[2018-04-08] MEDS: OLANZapine 10 MG/2.1 ML SDV IM PRN (19:47)
[2018-04-08] MEDS: HEPARIN SOD 5,000 UNIT/0.5 ML VIAL SQ SCH (20:13)
--- NOTE | 2018-04-09 00:12 | Hospitalist Progress Note ---
Date of Service April 09, 2018 Subjective Made aware by RN of worsening agitation. Better response with Haldol versus Zyprexa as per RN AP Agitation ? Quinolone medication contributory Rule out hepatic encephalopathy with incidental note of anasarca/upper abdominal ascites on chest CT Haldol as needed Change Levaquin to Ceftriaxone and Doxycycline for CAP coverage Check ammonia level Will relay to AM provider. Physical Exam 2 Vital Signs (Past 24 Hours): Last Vital Signs Temp 36.6 C 04/08/18 20:20 Pulse 110 H 04/08/18 20:20 Resp 18 04/08/18 20:20 BP 101/72 04/08/18 20:20 Pulse Ox 92 04/08/18 20:20
[2018-04-09] MEDS: OLANZapine 10 MG/2.1 ML SDV IM PRN (00:17)
[2018-04-09] MEDS ORDERED: HALOPERIDOL LACTATE 5 MG/ML 1 ML VIAL IM STA (01:43)
[2018-04-09] MEDS ORDERED: HALOPERIDOL LACTATE 5 MG/ML 1 ML VIAL ONE (01:48)
[2018-04-09] MEDS: cefTRIAXone SODIUM 1,000 MG in DEXTROSE 5% 50 ML IV SCH (02:30)
[2018-04-09] MEDS: HEPARIN SOD 5,000 UNIT/0.5 ML VIAL SQ SCH ×2 (08:26→23:45)
[2018-04-09] MEDS: HALOPERIDOL LACTATE 5 MG/ML 1 ML VIAL IM PRN ×2 (08:30→13:52)
[2018-04-09 09:22] LABS: Basophils # (auto) 0.03 K/uL (0-0.2); Basophils % (auto) 0.5 %; Eosinophils # (auto) 0.02 K/uL (0-0.5); Eosinophils % (auto) 0.3 %; Hematocrit (blood only) 41.2 % (37-47); Hemoglobin 12.9 g/dL (12.0-16.0); Immature Granulocytes # (auto) 0.02 K/uL (0.00-0.02); Immature Granulocytes % (auto) 0.3 %; Lymphocytes # (auto) 1.48 K/uL (1.2-3.4); Lymphocytes % (auto) 25.1 %; Mean Corpuscular Hgb Conc 31.3 g/dL (32-36); Mean Platelet Volume 11.1 fL (7.4-10.4); Monocytes % (auto) 11.9 %; Neutrophils # (auto) 3.64 K/uL (1.4-6.5); Neutrophils % (auto) 61.9 %; Platelet Count 260 K/uL (130-400); RDW Coefficient of Variation 19.7 % (11.5-14.5); RDW Standard Deviation 54.8 fL (36.4-46.3); Red Blood Count 5.28 M/uL (4.2-5.4); White Blood Count 5.89 K/uL (4.8-10.8)
[2018-04-09 09:56] LABS: Albumin Globulin Ratio 0.8 (0.9-2); Albumin Level 2.8 gm/dl (3.4-5.0); BUN Creatinine Ratio 18.7 (10-20); Calcium 8.9 mg/dl (8.5-10.1); Creatinine Clr Calc Pharmacy 26.3 ml/min; Est GFR (Non-African American) 32.8; Globulin 3.7 gm/dl (2.5-4.0); Magnesium 2.3 mg/dl (1.8-2.4); Potassium 5.3 mmol/L (3.5-5.1); Total Protein 6.5 gm/dl (6.4-8.2)
[2018-04-09] MEDS: LEVOTHYROXINE SODIUM 112 MCG TABLET PO SCH (10:41)
[2018-04-09] MEDS: METOPROLOL SUCC 25MG EXT REL TAB PO SCH (10:41)
[2018-04-09] MEDS: DOXYCYCLINE HYCLATE 100 MG CAP PO SCH ×3 (10:41→23:45)
--- NOTE | 2018-04-09 10:50 | Hospitalist Progress Note ---
Date of Service April 09, 2018 Assessment & Plan (1) Altered mental status: Presented with acute confusion with the history of ongoing confusion for 2 months No documented history of dementia unclear etiology at this time, possible Metabolic Encephalopathy, in the setting of possible Underlying Dementia Hypothyroidism Pneumonia? --Management per below Brain MRI: moderated atrophy Neuro consulted (2) Pneumonia: vs Mass? afebrile, denies cough CT chest ordered: IMPRESSION: 1. Moderate right and small left pleural effusions with subtotal right lower lobe atelectasis which accounts for the abnormality on prior chest radiograph. 2. Marked cardiomegaly. Trace pericardial effusion. 3. Moderate emphysema. 4. Small amount of upper abdominal ascites. Anasarca. no fever, leukocytosis since admission check procalcitonin On empiric ceftriaxone plus doxycycline Pulmonary consulted (3) Mass of right lung: CT chest ordered , which reveals pleural effusion Pulmonary consulted (4) Cardiomyopathy: newly diagnosed (+) right pleural effusion, otherwise no signs of overt volume overload Cardiology consulted Metoprolol succinate 12.5 mg daily ordered Tolerating well, heart rates in the low 100s, monitor (5) Hypothyroidism: Has been on 112 mcg of thyroxine high TSH, low t4/t3 Family reports patient has not been taking her levothyroxine regularly Discussed with endocrinology in [facility], recommend 2-day course of IV levothyroxine at 88 mcg, will start tomorrow Then resume levothyroxine 112 mcg daily, repeat thyroid function test in 6 weeks (6) Delirium: noted early AM 04/09/18 PRN Haldol reorientation will continue to monitor may need Psych eval for Dementia with Behavioral Disturbance if with no improvement through the day (7) Acute kidney injury superimposed on chronic kidney disease: Creatinine increased again today has poor oral intake We will give gentle IV NSS x1 bag Monitor (8) Hypertension: Lisinopril on hold in light of elevated crea BP on the low side monitor (9) Major depressive disorder: Has not been taking any medicine now Psych consulted Also has history of problem with swallowing -- Speech eval ordered (10) Discharge planning issues: usually lives with family at home (11) DVT prophylaxis: SCDs, heparin Subjective ff up for confusion, cardiomyopathy noted to be agitated, combative overnight required Haldol 2 doses since last night seen sleeping, easily awakened, but still confused, seems irritable, but more cooperative with exam though compared to this AM denies chest pain, dyspnea, palpitations HR low 100s, a flutter full ROMs difficult to assess due to patient's confusion, but she denies any other symptoms Physical Exam 2 Vital Signs (Past 24 Hours): Last Vital Signs Temp 36.8 C 04/09/18 08:11 Pulse 102 H 04/09/18 08:11 Resp 18 04/09/18 08:11 BP 132/61 04/09/18 08:11 Pulse Ox 94 04/09/18 08:11 Physical Exam: General- confused, irritable, not in distress, speaks in sentences with no effort or accessory muscle use Eyes- anicteric Neck- no JVD Lungs- decreased breath sounds right base, no rales/wheezes Heart- mild tachycardia, irregularly irregular rhythm, no murmurs Abdomen- normal bowel sounds, nondistended, soft, nontender Extremities- no pretibial edema, no calf tenderness Neuro-awake, irritable, not oriented; no gross focal neurologic deficits Skin- warm & dry Results & Data Laboratory Results Laboratory Results - last 24 hr 04/09/18 04/09/18 04/09/18 09:00 09:00 09:00 WBC 5.89 RBC 5.28 Hgb 12.9 Hct 41.2 MCV 78.0 L MCH 24.4 L MCHC 31.3 L RDW Std Deviation 54.8 H RDW Coeff of Ran 19.7 H Plt Count 260 MPV 11.1 H Immature Gran % (Auto) 0.3 Neut % (Auto) 61.9 Lymph % (Auto) 25.1 [place] % (Auto) 11.9 Eos % (Auto) 0.3 Baso % (Auto) 0.5 Immature Gran # (Auto) 0.02 Neut # (Auto) 3.64 Lymph # (Auto) 1.48 [place] # (Auto) 0.70 H Eos # (Auto) 0.02 Baso # (Auto) 0.03 Sodium 141 Potassium 5.3 H D Chloride 111 H Carbon Dioxide 21 Anion Gap 10.0 BUN 28 H Creatinine 1.50 H Est Cr Clr Drug Dosing 26.3 Est GFR ( Amer) 38.0 Est GFR (Non-Af Amer) 32.8 BUN/Creatinine Ratio 18.7 Glucose 86 Calcium 8.9 Magnesium 2.3 Total Bilirubin 1.0 AST 18 ALT 14 Alkaline Phosphatase 70 Ammonia < 10.0 L Total Protein 6.5 Albumin 2.8 L Globulin 3.7 Albumin/Globulin Ratio 0.8 L _ (1) Altered mental status Altered mental status type: unspecified Coma depth: Coma timing: Qualified Code(s): R41.82 - Altered mental status, unspecified (2) Pneumonia Aspiration pneumonia type: Laterality: right Lung location: lower lobe of lung Pneumonia type: due to unspecified organism Qualified Code(s): J18.1 - Lobar pneumonia, unspecified organism
[2018-04-09] MEDS ORDERED: D5W AND NSS 1,000 ML IV SCH (11:00)
--- NOTE | 2018-04-09 13:58 | Psychiatric Consultation ---
Date of Consultation April 09, 2018 Impression / Recommendations Impression Patient is a 77 year old female currently in the hospital with several medical problems including uncontrolled hypothyroidism, aflutter with a decreased EF of 25-30% and iron deficiency anemia. We were asked to see the patient secondary to a worsening altered mental status and combative behaviour overnight. The differential diagnosis for her current altered mental status includes alzheimers dementia, hospital associated delirium, cognitive dysfunction secondary to uncontrolled hypothyroidism, and pseudodementia. With the patients worsening mental status over the past few months, her inability to answer question on the mini-cog and MRI findings of moderate atrophy it is likely that the patient does have dementia. However it would be imperative to rule out reversible causes before coming to this diagnosis. ( currently being evaluated per neurology). Her altered mental status yesterday evening and combative behaviour were likely hospital acquired delireum on a background of dementia. While the patient is in hospital it would be ideal to replace her thyroid hormone appropriately to ensure that this is not the main contributing factor to her current mental status. After talking to the it sounds like the patient may have had mild depression prior to her worsening mental status over the past couple of months and this may have also been contributing to her worsening mental status. Our following are recommendation for the patient while she is here in the hospital. 1) Avoid administration of haldol unless absolutely necessary or life threatening situation. If it is used then serial EKG's need to be used in order to monitor patients QtC 2) Treat reversible causes of AMS including hypothyroidism and check for preventative causes of AMS 3) Frequent reassurance and verbal reorientation to patient by nursing and family members; ensure patient is getting plenty of light in room during the day and dark in room at night; if able then take the patient for short walks in hospital alaniz during the day 4) Constant observation through 1:1 surveillance instead of physical restraints is encouraged. 5) Ensure patient is well hydrated and eating regularly to avoid dehydration and hypoglycemia 6) Will discuss with Dr. Alvarado as to whether or not antidepressant would be of benefit to patient. At this point will hold off Feel free to contact the psychiatry team for any further questions or concerns. Psych History Chief Complaint "She has been forgetting things over the last several months.". History of Present Illness Betsy Sumner is a 77 year old female with a PMH of HTN, Hypothyroidism, CKD stage 3 and reflux that was brought to the hospital on 04/07/2018 by her due to worsening confusion over the past 2 months. Upon presentation in the ED she was confused but otherwise without any other complaints. Her vital signs were significant for a tachycardia with rates in the low 100's but other vitals were unremarkable. Her EKG showed atrial flutter with RVR. Labs were significant for a tsh of 27, creatinine of 1.44 and a MCV of 77. She had a CXR which showed a R infrahilar opacity w/ moderate pleural effusions. The patient was then admitted to telemetry for further workup and monitoring. So far while in the hospital further lab workup has shown that the patient has untreated hypothyroidism and an iron deficiency anemia. She had an echo which showed an EF of 25-30% with severe global hypokinesis. She had a Chest CT which showed emphysema and cardiomegaly and a MRI of her brain showed moderate atrophy. She has had a normal B12, folate, glucose, lft's and alyssaly has a an RPR and thiamine level ordered. Yesterday evening while in the hospital the patient was noted to be combative and agitated with nursing and therefore was given 2 dose of haldol. We were therefore consulted today by the primary team for further evaluation of the patient. Patient was seen at the bedside today along side her . The patient was orientated to person but not place or time. The nurse liason did do the minicog with the patient and she scored a 0. The was spoke to by myself and the nurse liason on separate occasions. He notes that the patients behaviour has been changing since December. He notes that she has been unable to complete basic pin cleaner such as cleaning or cooking. She has also been refusing to taker medications. He notes that for the past 5-6 months she has not been wanting him to leave there home and she gets very upset when he wants to leave to get groceries. The patient has also been refusing to go and see the doctor and hasn't gone to see her PCP in over 5 years. He notes that she sits in front of the television for most of the day and she doesn't communicate very much. The also notes at night she has said she hears people coming into the home but he says that he doesn't hear anyone in the home. Her notes that the patient was an active mother and was always involved in her children's day to day tasks. The following history is retrieved from the patient; however, it is difficulty to elucidate as to whether or not this information is completely accurate considering her current mental status. Most of these answers were retrieved asking close ended questions. The patient notes that she has had periods of sadness in her life, but has never wanted to commit suicide. She has never been on psychiatric medication and has never seen a psychiatrist. She has never been hospitalized for psychiatric illness. She has no significant family history of psychiatric illness. Currently she notes that her mood is ok and she has no thoughts of wanting to hurt herself. She isn't particularly anxious about anything and denies any regular panic symptoms. She personally denies any hallucinations. Currently she is anxious about wanting to go home. She was a smoker in the past, and would occasionally drink alcohol but never did any illicit drugs. Past Psychiatric History Previous Psych History: None Current Psychiatric Diagnosis: None Outpatient Services: None Previous Psych Admissions: None History of Previous Suicide Attempt: No Past Medication Trials: None Allergies Allergy/AdvReac Type Severity Reaction Status Date / Time adhesive Allergy Unknown allergy to Verified 04/07/18 11:11 tape, bandaids Beta-Blockers AdvReac Severe low heart Verified 04/07/18 11:11 (Beta-Adrenergic Bloc rate Home Medications Home Medications Medication Instructions Recorded Confirmed Type levothyroxine 112 mcg PO DAILY 04/07/18 04/07/18 History lisinopril 40 mg PO DAILY 04/07/18 04/07/18 History ranitidine HCl 300 mg PO DAILY 04/07/18 04/07/18 History Family History None of significance Substance Abuse History None Personal History Living Arrangements: Home Living Arrangements Comments: lives with Highest Grade Completed: High School Graduate Employment Status: Retired (patient worked varying jobs up until she had children) Marital Status: Beliefs That Will Affect Care: None History of Legal Problems: none Patient History Medical History Hypertension (Chronic) Social History Current Living Situation: Spouse Other Information That Helps Us Care for You: No Feels Safe at Home: Yes Safety Concerns: Feels Safe At This Time Smoking Status: Former smoker Do You Dip or Chew Tobacco: No Smoking End Date: 1989 Second Hand Exposure: No Tobacco Cessation Education Requested by Patient: No Hx Alcohol Use: No Hx Substance Use: No Beliefs That Will Affect Care: None Preferred Language: [place] Communication Ability: Effective Communication Ability Comment: some confusion Awning Hanger Helper Required: No Physical Exam Mental Examination Appearance: Well Groomed Eye Contact: Sporadic Contact Motor Behavior: Unremarkable Speech: Soft Mood: Euthymic Affect: Appropriate Thought Process: Poverty of Content Hallucinations: None Insight: Poor Judgement: Poor Vital Signs (Past 24 Hours) Last Vital Signs Temp 36.8 C 04/09/18 08:11 Pulse 115 H 04/09/18 11:07 Resp 20 04/09/18 11:07 BP 99/71 L 04/09/18 11:07 Pulse Ox 92 04/09/18 11:07 Constitutional + ill appearing, + thin and comfortable; no acute distress Review of Systems Unobtainable due to cognitive status Results & Data Medications Administered Doxycycline Hyclate (Vibramycin) 100 mg PO BID [facility] Stop: 04/16/18 08:59 Last Admin: 04/09/18 11:19 Dose: Not Given Haloperidol Lactate (Haldol) 2 mg IM Q2H PRN PRN Reason: Agitation Stop: 05/09/18 06:16 Last Admin: 04/09/18 08:30 Dose: 2 mg Heparin Sodium (Porcine) (Heparin Sodium (Porcine)) 5,000 units SQ Q12 [facility] Stop: 05/08/18 20:59 Last Admin: 04/09/18 08:26 Dose: 5,000 units Admin: 04/08/18 20:13 Dose: 5,000 units Ceftriaxone Sodium 1,000 mg/ (Dextrose) 50 mls @ 100 mls/hr IV Q24H [facility]; Protocol Stop: 04/16/18 00:59 Last Infusion: 04/09/18 04:03 Dose: 0 mls/hr Admin: 04/09/18 02:30 Dose: 100 mls/hr Metoprolol Succinate (Toprol Xl) 12.5 mg PO QAM [facility] Stop: 05/08/18 11:44 Last Admin: 04/09/18 10:41 Dose: 12.5 mg Admin: 04/08/18 12:58 Dose: 12.5 mg Ranitidine HCl (Zantac) 300 mg PO DAILY [facility] Stop: 05/07/18 15:14 Last Admin: 04/09/18 11:20 Dose: Not Given Admin: 04/08/18 07:45 Dose: 300 mg Admin: 04/07/18 16:14 Dose: 300 mg
--- NOTE | 2018-04-09 14:50 | Neurology Progress Note ---
Date of Service April 09, 2018 Assessment & Plan (1) Altered mental status: 1. TSH - not taking thyroid replacement- restarted 2. B12, folate - WNL RPR, and thiamine level pending 3. correct electrolytes 4. cardiology on board- EF 25-30 % irregular 5. possible anticoag needed cardiology to determine 6. ERICA- will need iron supplement 7. multiple issues which are contributing to confusion with possible some baseline dementia. correct issues. 8. MRI brain - no acute findings. 9. out patient work up in our office for dementia and baseline after correctable issues are addressed neurology follow up as outpatient in 4-6 weeks after discharge for further evaluation of dementia, Lyubov Yeboah PAC schedule will sign off for now. Pt deliriious overnight, received sedation. MRI brain no acute abnl Suspect dementia, cannot exclude related to hypothyroidism. P adequately replace thyroid , will reassess as an outpt. NELSON Edwards MD Supervising Physician Co-Signing Physician Notes I have seen and discussed above patient with Dr Lyubov Edwards, neurology Subjective Betsy escamilla s 77 year old female with PMH major depression, CKD III, anxiety, HTN and hypothyroidism. she has not been seen by her PCP for > 5 years according to her . Her has been trying to get her to the doctor but she has been refusing. She has been complaining of some shortness of breath on exertion and also occasional dizziness but no significant history of fall. She was also having some swallowing issues. Today she is sitting up bedside. She is aware today she is in the hospital but thinks it is in [place]. She has some agitation and delirium last night. She was treated with haldol and psychiatric saw her today. Currently she does not seem delirious. denies CP, SOB, abdominal pain, N, V, vision changes, +weight loss. She has a PMH smoking but quit a number of years ago. Physical Exam 2 Vital Signs (Past 24 Hours): Last Vital Signs Temp 36.8 C 04/09/18 08:11 Pulse 115 H 04/09/18 11:07 Resp 20 04/09/18 11:07 BP 99/71 L 04/09/18 11:07 Pulse Ox 92 04/09/18 11:07 Gen: alert NAD lungs course breath sounds CV RRR neuro: knows she is in the hospital, but in [place], can not repeat no ifs ands or buts, able to close eyes, stick out tongue and point to ceiling with left hand. strength hand rn clinical appeals biceps triceps 5/5 bilaterally hip flex 5/5 bilaterally no pronator drift Results & Data Laboratory Results Abnormal lab results 04/09/18 04/09/18 04/09/18 Range/Units 09:00 09:00 09:00 MCV 78.0 L (80-100) fL MCH 24.4 L (25-34) pg MCHC 31.3 L (32-36) g/dL RDW Std Deviation 54.8 H (36.4-46.3) fL RDW Coeff of Ran 19.7 H (11.5-14.5) % MPV 11.1 H (7.4-10.4) fL [place] # (Auto) 0.70 H (0.11-0.59) K/uL Potassium 5.3 H D (3.5-5.1) mmol/L Chloride 111 H (98-107) mmol/L BUN 28 H (7-18) mg/dl Creatinine 1.50 H (0.6-1.2) mg/dl Ammonia < 10.0 L (11-32) umol/L Albumin 2.8 L (3.4-5.0) gm/dl Albumin/Globulin Ratio 0.8 L (0.9-2) Diagnostic Findings MRI brain- . No acute intracranial findings. Moderate atrophy. Minimal small vessel disease. Study mildly compromised by motion artifact. _ (1) Altered mental status Altered mental status type: unspecified Coma depth: Coma timing: Qualified Code(s): R41.82 - Altered mental status, unspecified
[2018-04-09 16:22] LABS: BUN Creatinine Ratio 19.2 (10-20); Calcium 8.8 mg/dl (8.5-10.1); Creatinine Clr Calc Pharmacy 27.2 ml/min; Est GFR (African American) 39.6; Est GFR (Non-African American) 34.2; Potassium 4.2 mmol/L (3.5-5.1)
--- NOTE | 2018-04-09 16:50 | XRay Report ---
XR chest 1V portable HISTORY: 77 years-old Female post thoracentesis right sided. Follow up study in a patient with righ t pleural effusion and recent right sided thoracentesis COMPARISON: Chest radiograph April 07, [address] April 08, 2017 TECHNIQUE: Portable AP view of the chest FINDINGS: Cardiac silhouette is enlarged, unchanged. The patient is rotated towards the right which limits the study. Mild pulmonary vascular congestion, decreased from comparison chest radiograph. Small bilatera l pleural effusions, decreased in size on the right. No definite postprocedural pneumothorax, however evaluation is limited secondary to positioning. Persistent bibasilar opacities. Degenerative changes of the shoulders and spine. IMPRESSION: 1. Cardiomegaly with pulmonary vascular congestion. 2. Small bilateral pleural effusions, decreased in size on the right status post thoracentesis. 3. No postprocedural pneumothorax. 4. Persistent bibasilar opacities. The above report was generated using voice recognition software. It may contain grammatical, syntax o r spelling errors. Electronically signed by: Reymundo Hanson M.D. 04/09/2018 4:48 PM
[2018-04-09 17:06] LABS: LDH Pleural Fluid 71 IU; Total Protein Pleural Fluid 1.8 g/dl
[2018-04-09 18:30] LABS: Mononuclear WBC Pleural 80.2 %; Polynuclear WBC Pleural 19.8 %; RBC Pleural Fluid (A) < 3000 /uL; Source Pleural Fluid RIGHT LUNG; WBC Pleural Fluid (A) 119 /uL
[2018-04-09 18:54] LABS: Appearance Urine Clear (Clear); Color Urine Yellow; Glucose Urine UA Negative (Negative); Ketones Urine Negative (Negative); Leukocyte Esterase Urine Negative (Negative); Nitrite Urine Negative (Negative); Protein Urine Negative (Negative); Specific Gravity Urine >= 1.030 (1.000-1.030); Urobilinogen Urine Negative (Negative); pH Urine 5.5 (4.5-7.5)
[2018-04-09 18:56] LABS: Bilirubin Urine Negative (Negative); Ictotest Urine Negative (Negative)
--- NOTE | 2018-04-09 19:01 | Cardiology Progress Note ---
Date of Service April 09, 2018 Assessment & Plan (1) Cardiomyopathy: Patient presented acutely with confusion of several months duration echocardiogram in course of evaluation demonstrated diffuse LV dysfunction EF 20 -25% Etiology uncertain at this time hypothyroidism may be contributing as well as atrial flutter with poorly controlled ventricular response rate Begin guideline based appropriate medical therapies with Toprol-XL 12.5 mg twice per day to aid in heart rate control and begin appropriate therapies for cardiomyopathy. Add JAMES inhibitor as blood pressure allows. No overt volume overload currently, peripheral edema present possibly secondary to myxedema Blood pressures remain soft thyroid replacement initiated. We will add digoxin for further heart rate control while further increase in beta-franny (2) Hypothyroidism: Beginning replacement (3) Atypical atrial flutter: As above heart rates poorly controlled will begin low-dose beta-franny as thyroid is being replaced. We will need to discuss anticoagulation though in the setting of multiple current issues including iron deficiency anemia and chest mass will hold for time being (4) Microcytic anemia: (5) Mass of right lung: Subjective Patient was seen and examined earlier today as well as later this evening patient initially refusing examination. Patient is now cooperative and answering questions appropriately. She denies any chest pain or discomfort notes no orthopnea continued to have mild peripheral edema is taking medications as provided. Physical Exam 2 Vital Signs (Past 24 Hours): Last Vital Signs Temp 36.4 C L 04/09/18 18:41 Pulse 110 H 04/09/18 18:41 Resp 20 04/09/18 15:28 BP 99/60 L 04/09/18 18:41 Pulse Ox 93 04/09/18 18:41 Constitutional: + thin; no acute distress Eyes: PERRL, conjunctivae normal, anicteric sclerae Neck: trachea midline, no thyromegaly Cardiovascular: Heart Sounds: normal S1, normal S2 and + murmur (Grade 1/6 systolic murmur at apex); no gallop Extremities: + edema ([place] edema to the knees) Regular rate with tachycardia Gastrointestinal (Abdomen): Percussion/Palpation: abdomen soft; abdomen nontender and no hepatosplenomegaly Musculoskeletal: no cyanosis or clubbing, extremities motor strength 5/5 Skin: no rashes, warm and dry Neurologic: PERRL, EOMI, accommodation nl, no face palsy, no dysarthria Results & Data Laboratory Results Laboratory Results - last 24 hr 04/09/18 04/09/18 04/09/18 09:00 09:00 09:00 WBC 5.89 RBC 5.28 Hgb 12.9 Hct 41.2 MCV 78.0 L MCH 24.4 L MCHC 31.3 L RDW Std Deviation 54.8 H RDW Coeff of Ran 19.7 H Plt Count 260 MPV 11.1 H Immature Gran % (Auto) 0.3 Neut % (Auto) 61.9 Lymph % (Auto) 25.1 [place] % (Auto) 11.9 Eos % (Auto) 0.3 Baso % (Auto) 0.5 Immature Gran # (Auto) 0.02 Neut # (Auto) 3.64 Lymph # (Auto) 1.48 [place] # (Auto) 0.70 H Eos # (Auto) 0.02 Baso # (Auto) 0.03 Sodium 141 Potassium 5.3 H D Chloride 111 H Carbon Dioxide 21 Anion Gap 10.0 BUN 28 H Creatinine 1.50 H Est Cr Clr Drug Dosing 26.3 Est GFR ( Amer) 38.0 Est GFR (Non-Af Amer) 32.8 BUN/Creatinine Ratio 18.7 Glucose 86 Calcium 8.9 Magnesium 2.3 Total Bilirubin 1.0 AST 18 ALT 14 Alkaline Phosphatase 70 Ammonia < 10.0 L Total Protein 6.5 Albumin 2.8 L Globulin 3.7 Albumin/Globulin Ratio 0.8 L Procalcitonin Urine Color Urine Appearance Urine pH Ur Specific [place] Urine Protein Urine Glucose (UA) Urine Ketones Urine Blood Urine Nitrite Urine Bilirubin Urine Urobilinogen Ur Leukocyte Esterase Pleural Fluid Source Pleural Color Pleural Appearance Pleural WBC Pleural RBC Pleural Polynuclear % Pleural Mononuclear % Pleural Total Protein Pleural Albumin Pleural LDH Pleural Glucose 04/09/18 04/09/18 04/09/18 09:00 14:07 15:22 WBC RBC Hgb Hct MCV MCH MCHC RDW Std Deviation RDW Coeff of Ran Plt Count MPV Immature Gran % (Auto) Neut % (Auto) Lymph % (Auto) [place] % (Auto) Eos % (Auto) Baso % (Auto) Immature Gran # (Auto) Neut # (Auto) Lymph # (Auto) [place] # (Auto) Eos # (Auto) Baso # (Auto) Sodium Cancelled 139 Potassium Cancelled 4.2 D Chloride Cancelled 108 H Carbon Dioxide Cancelled 20 L Anion Gap Cancelled 10.0 BUN Cancelled 28 H Creatinine Cancelled 1.45 H Est Cr Clr Drug Dosing Cancelled 27.2 Est GFR ( Amer) Cancelled 39.6 Est GFR (Non-Af Amer) Cancelled 34.2 BUN/Creatinine Ratio Cancelled 19.2 Glucose Cancelled 100 H Calcium Cancelled 8.8 Magnesium Total Bilirubin AST ALT Alkaline Phosphatase Ammonia Total Protein Albumin Globulin Albumin/Globulin Ratio Procalcitonin < 0.05 Urine Color Urine Appearance Urine pH Ur Specific [place] Urine Protein Urine Glucose (UA) Urine Ketones Urine Blood Urine Nitrite Urine Bilirubin Urine Urobilinogen Ur Leukocyte Esterase Pleural Fluid Source Pleural Color Pleural Appearance Pleural WBC Pleural RBC Pleural Polynuclear % Pleural Mononuclear % Pleural Total Protein Pleural Albumin Pleural LDH Pleural Glucose 04/09/18 04/09/18 16:09 18:15 WBC RBC Hgb Hct MCV MCH MCHC RDW Std Deviation RDW Coeff of Ran Plt Count MPV Immature Gran % (Auto) Neut % (Auto) Lymph % (Auto) [place] % (Auto) Eos % (Auto) Baso % (Auto) Immature Gran # (Auto) Neut # (Auto) Lymph # (Auto) [place] # (Auto) Eos # (Auto) Baso # (Auto) Sodium Potassium Chloride Carbon Dioxide Anion Gap BUN Creatinine Est Cr Clr Drug Dosing Est GFR ( Amer) Est GFR (Non-Af Amer) BUN/Creatinine Ratio Glucose Calcium Magnesium Total Bilirubin AST ALT Alkaline Phosphatase Ammonia Total Protein Albumin Globulin Albumin/Globulin Ratio Procalcitonin Urine Color Yellow Urine Appearance Clear Urine pH 5.5 Ur Specific [place] >= 1.030 Urine Protein Negative Urine Glucose (UA) Negative Urine Ketones Negative Urine Blood Negative Urine Nitrite Negative Urine Bilirubin Negative Urine Urobilinogen Negative Ur Leukocyte Esterase Negative Pleural Fluid Source RIGHT LUNG Pleural Color YELLOW Pleural Appearance CLEAR Pleural WBC 119 Pleural RBC < 3000 Pleural Polynuclear % 19.8 Pleural Mononuclear % 80.2 Pleural Total Protein 1.8 Pleural Albumin 1.0 Pleural LDH 71 Pleural Glucose 93
[2018-04-09] MEDS ORDERED: DIGOXIN 0.25 MG TAB PO ONE (19:02)
--- NOTE | 2018-04-09 20:02 | Pulmonary Consultation ---
Date of Consultation April 09, 2018 Assessment & Plan (1) Delirium: Impression: 1. No evidence of lung mass. 2. Pleural effusion bilaterally, status post thoracentesis, transudate, related to CHF versus CKD. 3. COPD, not on any treatment, not requiring any treatment. Plan: 1. The focus of treatment should be to control her fluid balance and treating her CHF with respect to her kidney function. 2. Recommend Lasix drip. 3. No need for second thoracentesis. Pleural fluid are transudate. 4. Agree with your current management. 5. Aggressive management of hypothyroidism. Thank you, will follow as needed. History of Present Illness Reason for Consultation: Abnormal chest x-ray. Requesting Physician: Dr. Ramirez. Attending Physician: Merced Ramirez MD History of Present Illness Dear Dr. Ramirez: Thank you for the kind referral Mrs. Parikh to pulmonary service. This is 77- year-old female with history of dementia, brought to the hospital with confusion for the past 2 months. Her was with her at the bedside was present at the time when I interviewed her, the patient was able to answer simple questions but her review of system was difficult to obtain. The patient complained of generalized fatigue, difficulty breathing even walking for a few steps. She had increased swelling in her lower extremities. She denies any chest pain, no abdominal pain and no nausea or vomiting reported. She has been having weight loss for the past several weeks due to poor oral intake. The patient denies any orthopnea, but she does have paroxysmal nocturnal dyspnea occasionally. She has occasional cough without sputum production. The patient was not reliable in terms of her symptoms with chest pain or abdominal pain, she appeared to be confused and sometimes her answers are not related to the question she has been asked. Her past medical history as above, and the patient has also history of COPD but she has not been treated for it. Her family history is not contributing to her current medical history. Her social history, the patient is a smoker over than [id number], quit in 2012. She lives with her who was at the bedside. Allergies Allergy/AdvReac Type Severity Reaction Status Date / Time adhesive Allergy Unknown allergy to Verified 04/07/18 11:11 tape, bandaids Beta-Blockers AdvReac Severe low heart Verified 04/07/18 11:11 (Beta-Adrenergic Bloc rate Home Medications Home Medications Medication Instructions Recorded Confirmed Type levothyroxine 112 mcg PO DAILY 04/07/18 04/07/18 History lisinopril 40 mg PO DAILY 04/07/18 04/07/18 History ranitidine HCl 300 mg PO DAILY 04/07/18 04/07/18 History Patient History Medical History Hypertension (Chronic) Social History Current Living Situation: Spouse Other Information That Helps Us Care for You: No Feels Safe at Home: Yes Safety Concerns: Feels Safe At This Time Smoking Status: Former smoker Do You Dip or Chew Tobacco: No Smoking End Date: 1989 Second Hand Exposure: No Tobacco Cessation Education Requested by Patient: No Hx Alcohol Use: No Hx Substance Use: No Beliefs That Will Affect Care: None Preferred Language: [place] Communication Ability: Effective Communication Ability Comment: some confusion Intern Brand Required: No Review of Systems Limited review of system due to the patient history of dementia, however 10 systems were reviewed apart from the above, it was unremarkable. Physical Exam 2 Vital Signs (Past 24 Hours): Last Vital Signs Temp 36.4 C L 04/09/18 18:41 Pulse 110 H 04/09/18 18:41 Resp 20 04/09/18 15:28 BP 99/60 L 04/09/18 18:41 Pulse Ox 93 04/09/18 18:41 Physical Exam: Vital signs are stable, S1-S2 regular rate and rhythm, diminished breath sounds bilaterally at the bases, abdomen is benign, edema in the periphery noted. Cachexia. Results & Data Laboratory Results Pleural fluid were reviewed, and consistent with transudate. Diagnostic Findings CAT scan and chest x-ray both of them were reviewed which showed bilateral pleural effusion, compressive atelectasis, mild emphysematous changes.
[2018-04-10] MEDS: cefTRIAXone SODIUM 1,000 MG in DEXTROSE 5% 50 ML IV SCH (03:13)
[2018-04-10] MEDS: METOPROLOL SUCC 25MG EXT REL TAB PO SCH ×2 (08:44→20:35)
[2018-04-10] MEDS: DOXYCYCLINE HYCLATE 100 MG CAP PO SCH (08:45)
[2018-04-10] MEDS: LEVOTHYROXINE SODIUM 88 MCG in SYRINGE 0 ML IV SCH (08:50)
[2018-04-10] MEDS: HEPARIN SOD 5,000 UNIT/0.5 ML VIAL SQ SCH ×2 (08:58→20:35)
[2018-04-10 12:18] LABS: BUN Creatinine Ratio 19.8 (10-20); Calcium 8.4 mg/dl (8.5-10.1); Est GFR (African American) 42.8; Est GFR (Non-African American) 36.9; Potassium 4.7 mmol/L (3.5-5.1)
--- NOTE | 2018-04-10 17:21 | Hospitalist Progress Note ---
Date of Service April 10, 2018 Assessment & Plan (1) Altered mental status: Presented with acute confusion with the history of ongoing confusion for 2 months No documented history of dementia unclear etiology at this time, possible Metabolic Encephalopathy, in the setting of possible Underlying Dementia Hypothyroidism Pneumonia? --Management per below Brain MRI: moderated atrophy Neuro consulted PT/OT consulted (2) Pneumonia: vs Mass? afebrile, denies cough CT chest ordered: IMPRESSION: 1. Moderate right and small left pleural effusions with subtotal right lower lobe atelectasis which accounts for the abnormality on prior chest radiograph. 2. Marked cardiomegaly. Trace pericardial effusion. 3. Moderate emphysema. 04/10/18 4. Small amount of upper abdominal ascites. Anasarca. no fever, leukocytosis since admission check procalcitonin On empiric ceftriaxone plus doxycycline Pulmonary consulted 04/10/18 s/p Thoracentesis for L sided pleural effusion transudative effusion no fever, leukocytosis procalcitonin normal d/c antibiotics, and monitor (3) Mass of right lung: CT chest ordered , which reveals pleural effusion Pulmonary consulted- no mass noted on CT chest (4) Cardiomyopathy: newly diagnosed (+) right pleural effusion, otherwise no signs of overt volume overload Cardiology consulted Metoprolol succinate 12.5 mg daily ordered Tolerating well, heart rates in the low 100s, monitor 04/10/18 plan for titration of Metoprolol and Digoxin (5) Hypothyroidism: Has been on 112 mcg of thyroxine high TSH, low t4/t3 Family reports patient has not been taking her levothyroxine regularly Discussed with endocrinology in [facility], recommend 2-day course of IV levothyroxine at 88 mcg, will start tomorrow Then resume levothyroxine 112 mcg daily, repeat thyroid function test in 6 weeks 04/10/18 repeat T4 level on 04/12/17 (6) Delirium: noted early AM 04/09/18 PRN Haldol reorientation less agitation Psych consulted (7) Acute kidney injury superimposed on chronic kidney disease: Creatinine improved given IV NSS hold for now (8) Hypertension: Lisinopril on hold in light of elevated crea BP on the low side monitor (9) Major depressive disorder: Has not been taking any medicine now Psych consulted Also has history of problem with swallowing -- Speech eval ordered: noted recommendations (10) Discharge planning issues: usually lives with family at home (11) DVT prophylaxis: SCDs, heparin discussed case at length with patient's and son they are agreeable and comfortable with plan of care Subjective ff up for altered mental status, etc seen sitting up in bed, family at bedside still confused, irritable but not combative states she feels fine was noted to have some dyspnea earlier, placed on 2 L NC, not complaining of dyspnea on my exam denies cough, chest pain, palpitations, dizziness, nausea no other symptoms Physical Exam 2 Vital Signs (Past 24 Hours): Last Vital Signs Temp 36.7 C 04/10/18 16:00 Pulse 112 H 04/10/18 16:00 Resp 17 04/10/18 16:00 BP 104/74 04/10/18 16:00 Pulse Ox 94 04/10/18 16:00 Physical Exam: General- oriented x 1, not in distress, speaks in sentences with no effort or accessory muscle use Eyes- anicteric Neck- no JVD Lungs- (+) rales on the left base- mild, no wheezing right: clear Heart- mild tachycardia, irregularly irregular rhythm; no murmurs Abdomen- normal bowel sounds, nondistended, soft, nontender Extremities- mild lower leg edema, no calf tenderness Neuro- alert, oriented x 1; no gross focal neurologic deficits Skin- warm & dry Results & Data Laboratory Results Laboratory Results - last 24 hr 04/09/18 04/09/18 04/09/18 09:00 16:09 18:15 Sodium Potassium Chloride Carbon Dioxide Anion Gap BUN Creatinine Est Cr Clr Drug Dosing Est GFR ( Amer) Est GFR (Non-Af Amer) BUN/Creatinine Ratio Glucose Calcium Specimen Hemolysis Urine Color Yellow Urine Appearance Clear Urine pH 5.5 Ur Specific [place] >= 1.030 Urine Protein Negative Urine Glucose (UA) Negative Urine Ketones Negative Urine Blood Negative Urine Nitrite Negative Urine Bilirubin Negative Urine Urobilinogen Negative Ur Leukocyte Esterase Negative Pleural Fluid Source RIGHT LUNG Pleural Color YELLOW Pleural Appearance CLEAR Pleural WBC 119 Pleural RBC < 3000 Pleural Polynuclear % 19.8 Pleural Mononuclear % 80.2 RPR Nonreactive 04/10/18 11:51 Sodium 140 Potassium 4.7 Chloride 113 H Carbon Dioxide 21 Anion Gap 6.0 BUN 27 H Creatinine 1.36 H Est Cr Clr Drug Dosing 29.0 Est GFR ( Amer) 42.8 Est GFR (Non-Af Amer) 36.9 BUN/Creatinine Ratio 19.8 Glucose 91 Calcium 8.4 L Specimen Hemolysis Urine Color Urine Appearance Urine pH Ur Specific [place] Urine Protein Urine Glucose (UA) Urine Ketones Urine Blood Urine Nitrite Urine Bilirubin Urine Urobilinogen Ur Leukocyte Esterase Pleural Fluid Source Pleural Color Pleural Appearance Pleural WBC Pleural RBC Pleural Polynuclear % Pleural Mononuclear % RPR _ (1) Altered mental status Altered mental status type: unspecified Coma depth: Coma timing: Qualified Code(s): R41.82 - Altered mental status, unspecified (2) Pneumonia Aspiration pneumonia type: Laterality: right Lung location: lower lobe of lung Pneumonia type: due to unspecified organism Qualified Code(s): J18.1 - Lobar pneumonia, unspecified organism
--- NOTE | 2018-04-10 18:07 | Cardiology Progress Note ---
Date of Service April 10, 2018 Assessment & Plan (1) Cardiomyopathy: Patient presented acutely with confusion of several months duration echocardiogram in course of evaluation demonstrated diffuse LV dysfunction EF 20 -25% Etiology uncertain at this time hypothyroidism may be contributing as well as atrial flutter with poorly controlled ventricular response rate Begin guideline based appropriate medical therapies with Toprol-XL 12.5 mg twice per day to aid in heart rate control and begin appropriate therapies for cardiomyopathy. Add JAMES inhibitor as blood pressure allows. No overt volume overload currently, peripheral edema present possibly secondary to myxedema Blood pressures remain soft. Thyroid replacement initiated. We will add digoxin for further heart rate control while further increase in beta-franny We will give single dose of IV furosemide even peripheral edema and chest congestion with multiple plans oral dosing. Anticoagulation issues as previously to (2) Hypothyroidism: Beginning replacement (3) Atypical atrial flutter: As above heart rates poorly controlled will begin low-dose beta-franny as thyroid is being replaced. We will need to discuss anticoagulation though in the setting of multiple current issues including iron deficiency anemia poor compliance and historian would need more defined care setting to receive anticoagulation long-term (4) Microcytic anemia: (5) Mass of right lung: Subjective Patient was seen and examined chart medications telemetry reviewed. Patient has family in the room and does answer questions of limited historical accuracy. Denies any specific chest pain shortness of breath orthopnea is wearing oxygen Physical Exam 2 Vital Signs (Past 24 Hours): Last Vital Signs Temp 36.7 C 04/10/18 16:00 Pulse 112 H 04/10/18 16:00 Resp 17 04/10/18 16:00 BP 104/74 04/10/18 16:00 Pulse Ox 94 04/10/18 16:00 Constitutional: + thin; no acute distress Eyes: PERRL, conjunctivae normal, anicteric sclerae Neck: trachea midline, no thyromegaly Cardiovascular: Rate/Rhythm: regular rate and + tachycardic Heart Sounds: normal S1, normal S2 and + murmur (Grade 1/6 systolic murmur at apex); no gallop Extremities: + edema ([place] edema to the knees) Gastrointestinal (Abdomen): Percussion/Palpation: abdomen soft; abdomen nontender and no hepatosplenomegaly Musculoskeletal: no cyanosis or clubbing, extremities motor strength 5/5 Skin: no rashes, warm and dry Neurologic: PERRL, EOMI, accommodation nl, no face palsy, no dysarthria Results & Data Laboratory Results Laboratory Results - last 24 hr 04/09/18 04/09/18 04/09/18 09:00 16:09 18:15 Sodium Potassium Chloride Carbon Dioxide Anion Gap BUN Creatinine Est Cr Clr Drug Dosing Est GFR ( Amer) Est GFR (Non-Af Amer) BUN/Creatinine Ratio Glucose Calcium Specimen Hemolysis Urine Color Yellow Urine Appearance Clear Urine pH 5.5 Ur Specific [place] >= 1.030 Urine Protein Negative Urine Glucose (UA) Negative Urine Ketones Negative Urine Blood Negative Urine Nitrite Negative Urine Bilirubin Negative Urine Urobilinogen Negative Ur Leukocyte Esterase Negative Pleural Fluid Source RIGHT LUNG Pleural Color YELLOW Pleural Appearance CLEAR Pleural WBC 119 Pleural RBC < 3000 Pleural Polynuclear % 19.8 Pleural Mononuclear % 80.2 RPR Nonreactive 04/10/18 11:51 Sodium 140 Potassium 4.7 Chloride 113 H Carbon Dioxide 21 Anion Gap 6.0 BUN 27 H Creatinine 1.36 H Est Cr Clr Drug Dosing 29.0 Est GFR ( Amer) 42.8 Est GFR (Non-Af Amer) 36.9 BUN/Creatinine Ratio 19.8 Glucose 91 Calcium 8.4 L Specimen Hemolysis Urine Color Urine Appearance Urine pH Ur Specific [place] Urine Protein Urine Glucose (UA) Urine Ketones Urine Blood Urine Nitrite Urine Bilirubin Urine Urobilinogen Ur Leukocyte Esterase Pleural Fluid Source Pleural Color Pleural Appearance Pleural WBC Pleural RBC Pleural Polynuclear % Pleural Mononuclear % RPR
[2018-04-10] MEDS ORDERED: DIGOXIN 0.125 MG TAB PO ONE (18:30)
[2018-04-10] MEDS ORDERED: FUROSEMIDE 10 MG in SYRINGE 0 ML IV ONE (18:30)
[2018-04-10] MEDS: HALOPERIDOL LACTATE 5 MG/ML 1 ML VIAL IM PRN (20:50)
[2018-04-11] MEDS: METOPROLOL SUCC 25MG EXT REL TAB PO SCH ×2 (07:34→20:27)
[2018-04-11] MEDS: HEPARIN SOD 5,000 UNIT/0.5 ML VIAL SQ SCH ×2 (07:36→20:35)
[2018-04-11 08:00] LABS: BUN Creatinine Ratio 18.2 (10-20); Calcium 8.3 mg/dl (8.5-10.1); Creatinine Clr Calc Pharmacy 26.8 ml/min; Est GFR (African American) 38.9; Est GFR (Non-African American) 33.6; Potassium 3.8 mmol/L (3.5-5.1); T4 Free Thyroxine 0.83 ng/dl (0.8-1.6)
[2018-04-11] MEDS: LEVOTHYROXINE SODIUM 88 MCG in SYRINGE 0 ML IV SCH (09:07)
--- NOTE | 2018-04-11 14:23 | Cardiology Progress Note ---
Date of Service April 11, 2018 Assessment & Plan (1) Cardiomyopathy: Patient presented acutely with confusion of several months duration echocardiogram in course of evaluation demonstrated diffuse LV dysfunction EF 20 -25% Etiology uncertain at this time hypothyroidism may be contributing as well as atrial flutter with poorly controlled ventricular response rate Begin guideline based appropriate medical therapies with Toprol-XL 12.5 mg twice per day to aid in heart rate control and begin appropriate therapies for cardiomyopathy. Add JAMES inhibitor as blood pressure allows. No overt volume overload currently, peripheral edema present possibly secondary to myxedema Blood pressures remain soft. Thyroid replacement initiated. We will add digoxin for further heart rate control while further increase in beta-franny No need for further diuresis at this time. Anticoagulation issues as previously referred to (2) Hypothyroidism: Beginning replacement (3) Atypical atrial flutter: As above heart rates poorly controlled will begin low-dose beta-franny as thyroid is being replaced. We will need to discuss anticoagulation though in the setting of multiple current issues including iron deficiency anemia poor compliance and historian would need more defined care setting to receive anticoagulation long-term (4) Microcytic anemia: (5) Mass of right lung: Subjective Pt seen and examined, oob in chair, without complaint. Denies cp, sob, palpitations, lightheadedness or dizziness. Unable to answer as to her current location. Tele reviewed: atrial flutter with variable conduction in 110's. Review of Systems Unobtainable due to cognitive status Physical Exam 2 Vital Signs (Past 24 Hours): Last Vital Signs Temp 36.5 C 04/11/18 03:05 Pulse 95 H 04/11/18 03:05 Resp 18 04/11/18 03:05 BP 105/75 04/11/18 03:05 Pulse Ox 95 04/11/18 03:05 Physical Exam: General: Awake, alert and oriented x 3. No acute distress. HEENT: Normocephalic, atraumatic. Pupils equal, round and reactive to light and accommodation. Extraocular muscles are intact. Anicteric sclera. Moist mucous membranes. Neck: No JVD. No bruit. Cardiovascular: regularly irregular, unable to appreciate murmur, rub or gallop. Pulmonary: Clear to auscultation bilaterally. No rales, rhonchi, or wheezing. Abdomen: Bowel sounds x 4, soft. No rebound, guarding or tenderness. No organomegaly. Extremities: No clubbing, cyanosis or edema. +2 pedal pulses bilaterally. Skin: Warm and dry.
--- NOTE | 2018-04-11 16:23 | Hospitalist Progress Note ---
Date of Service April 11, 2018 Assessment & Plan (1) Altered mental status: Presented with acute confusion with the history of ongoing confusion for 2 months No documented history of dementia unclear etiology at this time, possible Metabolic Encephalopathy, in the setting of possible Underlying Dementia Hypothyroidism Pneumonia? --Management per below Brain MRI: moderated atrophy Neuro consulted PT/OT consulted (2) Pneumonia: vs Mass? afebrile, denies cough CT chest ordered: IMPRESSION: 1. Moderate right and small left pleural effusions with subtotal right lower lobe atelectasis which accounts for the abnormality on prior chest radiograph. 2. Marked cardiomegaly. Trace pericardial effusion. 3. Moderate emphysema. 04/10/18 4. Small amount of upper abdominal ascites. Anasarca. no fever, leukocytosis since admission check procalcitonin On empiric ceftriaxone plus doxycycline Pulmonary consulted 04/10/18 s/p Thoracentesis for L sided pleural effusion transudative effusion no fever, leukocytosis procalcitonin normal d/c antibiotics, and monitor 04/11/09 no fever, cough monitor off abx (3) Mass of right lung: CT chest ordered , which reveals pleural effusion Pulmonary consulted- no mass noted on CT chest 04/10/18 s/p thoracentesis transudative effusion 04/11/18 repeat CXR, slighty increased monitor (4) Cardiomyopathy: newly diagnosed (+) right pleural effusion, otherwise no signs of overt volume overload Cardiology consulted Metoprolol succinate 12.5 mg daily ordered Tolerating well, heart rates in the low 100s, monitor 04/10/18 plan for titration of Metoprolol and Digoxin 04/11/18 on Metoprolol for now HR 90s (5) Hypothyroidism: Has been on 112 mcg of thyroxine high TSH, low t4/t3 Family reports patient has not been taking her levothyroxine regularly Discussed with endocrinology in [facility], recommend 2-day course of IV levothyroxine at 88 mcg, will start tomorrow Then resume levothyroxine 112 mcg daily, repeat thyroid function test in 6 weeks 04/10/18 repeat T4 level on 04/12/18 (6) Delirium: noted early AM 04/09/18 PRN Haldol reorientation less agitation Psych consulted (7) Acute kidney injury superimposed on chronic kidney disease: Creatinine improved given IV NSS hold for now (8) Hypertension: Lisinopril on hold in light of elevated crea BP on the low side monitor (9) Major depressive disorder: Has not been taking any medicine now Psych consulted Also has history of problem with swallowing -- Speech eval ordered: noted recommendations (10) Discharge planning issues: usually lives with family at home PT OT eval in progress, may need SNF (11) DVT prophylaxis: SCDs, heparin discussed case at length with patient's and son they are agreeable and comfortable with plan of care Subjective ff up for altered mental status, pleural eff, etc. seen at bedside chair, family visiting still confused, irritable denies shortness of breath, cough, off o2 NC denies chest pain, palpitatoins, dizziness appetite slightly improved, ate 25% of lunch denies other symptoms Physical Exam 2 Vital Signs (Past 24 Hours): Last Vital Signs Temp 36.4 C L 04/11/18 15:10 Pulse 111 H 04/11/18 15:10 Resp 16 04/11/18 15:10 BP 95/68 L 04/11/18 15:10 Pulse Ox 94 04/11/18 15:10 Physical Exam: General- oriented x 3, not in distress, speaks in sentences with no effort or accessory muscle use Eyes- anicteric Neck- no JVD Lungs- mild rales at the right base, clear on the left Heart- normal rate, regular rhythm; no murmurs Abdomen- normal bowel sounds, nondistended, soft, nontender Extremities- no pretibial edema, no calf tenderness Neuro- alert, oriented x 3; no gross focal neurologic deficits Skin- warm & dry Results & Data Laboratory Results Laboratory Results - last 24 hr 04/11/18 07:00 Sodium 141 Potassium 3.8 D Chloride 111 H Carbon Dioxide 22 Anion Gap 8.0 BUN 27 H Creatinine 1.47 H Est Cr Clr Drug Dosing 26.8 Est GFR ( Amer) 38.9 Est GFR (Non-Af Amer) 33.6 BUN/Creatinine Ratio 18.2 Glucose 90 Calcium 8.3 L Free T4 0.83 _ (1) Altered mental status Altered mental status type: unspecified Coma depth: Coma timing: Qualified Code(s): R41.82 - Altered mental status, unspecified (2) Pneumonia Aspiration pneumonia type: Laterality: right Lung location: lower lobe of lung Pneumonia type: due to unspecified organism Qualified Code(s): J18.1 - Lobar pneumonia, unspecified organism
--- NOTE | 2018-04-11 16:26 | XRay Report ---
XR chest 1V portable CLINICAL HISTORY: ff up pleural effusion dyspnea COMPARISON STUDY: 04/09/2017 FINDINGS: Small bilateral pleural effusions slightly increased in volume from the prior study. Mid an d upper lungs are considered clear. Mild stable cardiomegaly. IMPRESSION: Slight increase in volume of small bilateral pleural effusions. Moderate stable cardiome brandon. The above report was generated using voice recognition software. It may contain grammatical, syntax or spelling errors. Electronically signed by: Gildardo Partida M.D. 04/11/2018 4:25 PM
[2018-04-11] MEDS: HALOPERIDOL LACTATE 5 MG/ML 1 ML VIAL IM PRN (21:25)
[2018-04-12 07:41] LABS: Potassium 4.5 mmol/L (3.5-5.1)
[2018-04-12 07:42] LABS: BUN Creatinine Ratio 18.7 (10-20); Calcium 8.4 mg/dl (8.5-10.1); Creatinine Clr Calc Pharmacy 26.1 ml/min; Est GFR (African American) 37.7; Est GFR (Non-African American) 32.5; T4 Free Thyroxine 0.87 ng/dl (0.8-1.6)
[2018-04-12] MEDS: HALOPERIDOL LACTATE 5 MG/ML 1 ML VIAL IM PRN (08:10)
[2018-04-12] MEDS: HEPARIN SOD 5,000 UNIT/0.5 ML VIAL SQ SCH ×2 (08:11→20:57)
[2018-04-12] MEDS: METOPROLOL SUCC 25MG EXT REL TAB PO SCH ×2 (08:11→20:57)
--- NOTE | 2018-04-12 13:33 | Hospitalist Progress Note ---
Date of Service April 12, 2018 delayed entry date of service as noted above Assessment & Plan (1) Altered mental status: Presented with acute confusion with the history of ongoing confusion for 2 months No documented history of dementia unclear etiology at this time, possible Metabolic Encephalopathy, in the setting of possible Underlying Dementia Hypothyroidism Pneumonia? --Management per below Brain MRI: moderated atrophy Neuro consulted PT/OT consulted -- mental status about the same, less irritable though (2) Pneumonia: vs Mass? afebrile, denies cough CT chest ordered: IMPRESSION: 1. Moderate right and small left pleural effusions with subtotal right lower lobe atelectasis which accounts for the abnormality on prior chest radiograph. 2. Marked cardiomegaly. Trace pericardial effusion. 3. Moderate emphysema. 04/10/18 4. Small amount of upper abdominal ascites. Anasarca. no fever, leukocytosis since admission check procalcitonin On empiric ceftriaxone plus doxycycline Pulmonary consulted 04/10/18 s/p Thoracentesis for L sided pleural effusion transudative effusion no fever, leukocytosis procalcitonin normal d/c antibiotics, and monitor afebrile, no cough (3) Mass of right lung: CT chest ordered , which reveals pleural effusion Pulmonary consulted- no mass noted on CT chest 04/10/18 s/p thoracentesis transudative effusion 04/11/18 repeat CXR, slighty increased monitor (4) Cardiomyopathy: newly diagnosed (+) right pleural effusion, otherwise no signs of overt volume overload Cardiology consulted Metoprolol succinate 12.5 mg daily ordered Tolerating well, heart rates in the low 100s, monitor 04/10/18 plan for titration of Metoprolol and Digoxin 04/11/18 on Metoprolol for now HR 90s 04/12/18 Lasix 20mg po given monitor crea (5) Hypothyroidism: Has been on 112 mcg of thyroxine high TSH, low t4/t3 Family reports patient has not been taking her levothyroxine regularly Discussed with endocrinology in [facility], recommend 2-day course of IV levothyroxine at 88 mcg, will start tomorrow Then resume levothyroxine 112 mcg daily, repeat thyroid function test in 6 weeks T4 improved to 0.8 resume Levothy 112mcg daily (6) Delirium: noted early AM 04/09/18 PRN Haldol reorientation less agitation Psych consulted (7) Acute kidney injury superimposed on chronic kidney disease: Creatinine improved given IV NSS hold for now (8) Hypertension: Lisinopril on hold in light of elevated crea BP on the low side monitor (9) Major depressive disorder: Has not been taking any medicine now Psych consulted Also has history of problem with swallowing -- Speech eval ordered: noted recommendations (10) Discharge planning issues: usually lives with family at home PT OT eval in progress, may need SNF (11) DVT prophylaxis: SCDs, heparin discussed case at length with patient's and son they are agreeable and comfortable with plan of care Subjective ff up for AMS seen with family at bedside still confused, but less irritable denies dyspnea, chest pain, palpitations, dizziness appetite is slowly improving denies other symptoms Physical Exam 2 Vital Signs (Past 24 Hours): Last Vital Signs Temp 36.3 C L 04/12/18 07:25 Pulse 105 H 04/12/18 08:00 Resp 20 04/12/18 07:25 BP 109/63 04/12/18 07:25 Pulse Ox 91 04/12/18 07:25 Physical Exam: General- oriented x 1, not in distress, speaks in sentences with no effort or accessory muscle use Eyes- anicteric Neck- no JVD Lungs- mild rales at the bases, b/l no wheezing Heart- normal rate, irregularl irregular rhythm; no murmurs Abdomen- normal bowel sounds, nondistended, soft, nontender Extremities- mild lower leg edema, no calf tenderness Neuro- alert, oriented x 1; confused, no other gross focal neurologic deficits Skin- warm & dry Results & Data Laboratory Results Laboratory Results - last 24 hr 04/13/18 06:29 Sodium 138 Potassium 4.1 Chloride 109 H Carbon Dioxide 21 Anion Gap 8.0 BUN 31 H Creatinine 1.62 H Est Cr Clr Drug Dosing 24.3 Est GFR ( Amer) 34.6 Est GFR (Non-Af Amer) 29.9 BUN/Creatinine Ratio 19.4 Glucose 90 Calcium 8.3 L Specimen Hemolysis _ (1) Altered mental status Altered mental status type: unspecified Coma depth: Coma timing: Qualified Code(s): R41.82 - Altered mental status, unspecified (2) Pneumonia Aspiration pneumonia type: Laterality: right Lung location: lower lobe of lung Pneumonia type: due to unspecified organism Qualified Code(s): J18.1 - Lobar pneumonia, unspecified organism
[2018-04-12] MEDS ORDERED: FUROSEMIDE 20 MG TAB PO ONE (13:45)
[2018-04-12] MEDS: LEVOTHYROXINE SODIUM 112 MCG TABLET PO SCH (14:49)
[2018-04-13] MEDS: LEVOTHYROXINE SODIUM 112 MCG TABLET PO SCH (06:14)
[2018-04-13 07:19] LABS: BUN Creatinine Ratio 19.4 (10-20); Calcium 8.3 mg/dl (8.5-10.1); Creatinine Clr Calc Pharmacy 24.3 ml/min; Est GFR (African American) 34.6; Est GFR (Non-African American) 29.9; Potassium 4.1 mmol/L (3.5-5.1)
[2018-04-13] MEDS: METOPROLOL SUCC 25MG EXT REL TAB PO SCH ×2 (09:12→20:56)
[2018-04-13] MEDS: HEPARIN SOD 5,000 UNIT/0.5 ML VIAL SQ SCH ×2 (09:14→20:55)
--- NOTE | 2018-04-13 18:13 | Hospitalist Progress Note ---
Date of Service April 13, 2018 Assessment & Plan (1) Altered mental status: Presented with acute confusion with the history of ongoing confusion for 2 months No documented history of dementia unclear etiology at this time, possible Metabolic Encephalopathy, in the setting of possible Underlying Dementia Hypothyroidism Pneumonia? --Management per below Brain MRI: moderated atrophy Neuro consulted PT/OT consulted -- mental status about the same, less irritable recenrtly (2) Pneumonia: vs Mass? afebrile, denies cough CT chest ordered: IMPRESSION: 1. Moderate right and small left pleural effusions with subtotal right lower lobe atelectasis which accounts for the abnormality on prior chest radiograph. 2. Marked cardiomegaly. Trace pericardial effusion. 3. Moderate emphysema. 04/10/18 4. Small amount of upper abdominal ascites. Anasarca. no fever, leukocytosis since admission check procalcitonin On empiric ceftriaxone plus doxycycline Pulmonary consulted 04/10/18 s/p Thoracentesis for L sided pleural effusion transudative effusion no fever, leukocytosis procalcitonin normal d/c antibiotics, and monitor afebrile, no cough 04/13/18 remains stable, no cough afebrile (3) Mass of right lung: CT chest ordered , which reveals pleural effusion Pulmonary consulted- no mass noted on CT chest 04/10/18 s/p thoracentesis transudative effusion 04/11/18 repeat CXR, slighty increased monitor (4) Cardiomyopathy: ATRIAL FLUTTER newly diagnosed (+) right pleural effusion, otherwise no signs of overt volume overload Cardiology consulted Metoprolol succinate 12.5 mg daily ordered Tolerating well, heart rates in the low 100s, monitor 04/10/18 plan for titration of Metoprolol and Digoxin 04/11/18 on Metoprolol for now HR 90s 04/12/18 Lasix 20mg po given monitor crea 04/13/18 HR 90s to low 100s asymptomatic BP on the lower side continue Metoprolol given Lasix the day prior, monitor volume status (5) Hypothyroidism: Has been on 112 mcg of thyroxine high TSH, low t4/t3 Family reports patient has not been taking her levothyroxine regularly Discussed with endocrinology in [facility], recommend 2-day course of IV levothyroxine at 88 mcg, will start tomorrow Then resume levothyroxine 112 mcg daily, repeat thyroid function test in 6 weeks T4 improved to 0.8 resume Levothyroxine 112mcg daily monitor (6) Delirium: noted early AM 04/09/18 PRN Haldol reorientation less agitation Psych consulted (7) Acute kidney injury superimposed on chronic kidney disease: crea 1.6 monitor (8) Hypertension: Lisinopril on hold in light of elevated crea BP on the low side monitor (9) Major depressive disorder: Has not been taking any medicine now Psych consulted Also has history of problem with swallowing -- Speech eval ordered: noted recommendations (10) Discharge planning issues: plant to transition to SNF when accepted (11) DVT prophylaxis: SCDs, heparin discussed case at length with patient's and son they are agreeable and comfortable with plan of care Subjective ff up for AMS sitting in bedside chair comfortable mental status about the same denies new symptoms Physical Exam 2 Vital Signs (Past 24 Hours): Last Vital Signs Temp 36.4 C L 04/13/18 16:00 Pulse 112 H 04/13/18 16:00 Resp 18 04/13/18 16:00 BP 87/65 L 04/13/18 16:00 Pulse Ox 94 04/13/18 16:00 Physical Exam: General- oriented x 1, not in distress, speaks in sentences with no effort or accessory muscle use Eyes- anicteric Neck- no JVD Lungs- clear breath sounds b/l Heart- normal rate, irregularly irregular rhythm; no murmurs Abdomen- normal bowel sounds, nondistended, soft, nontender Extremities- mild lower leg edema, no calf tenderness Neuro- alert, oriented x 1; confused, no other gross focal neurologic deficits Skin- warm & dry Results & Data Laboratory Results Laboratory Results - last 24 hr 04/13/18 06:29 Sodium 138 Potassium 4.1 Chloride 109 H Carbon Dioxide 21 Anion Gap 8.0 BUN 31 H Creatinine 1.62 H Est Cr Clr Drug Dosing 24.3 Est GFR ( Amer) 34.6 Est GFR (Non-Af Amer) 29.9 BUN/Creatinine Ratio 19.4 Glucose 90 Calcium 8.3 L Specimen Hemolysis _ (1) Altered mental status Altered mental status type: unspecified Coma depth: Coma timing: Qualified Code(s): R41.82 - Altered mental status, unspecified (2) Pneumonia Aspiration pneumonia type: Laterality: right Lung location: lower lobe of lung Pneumonia type: due to unspecified organism Qualified Code(s): J18.1 - Lobar pneumonia, unspecified organism
[2018-04-14] MEDS: LEVOTHYROXINE SODIUM 112 MCG TABLET PO SCH (06:02)
[2018-04-14 06:23] LABS: BUN Creatinine Ratio 21.9 (10-20); Calcium 8.7 mg/dl (8.5-10.1); Creatinine Clr Calc Pharmacy 24.8 ml/min; Est GFR (African American) 35.4; Est GFR (Non-African American) 30.6; Potassium 3.7 mmol/L (3.5-5.1)
[2018-04-14] MEDS: METOPROLOL SUCC 25MG EXT REL TAB PO SCH ×2 (08:11→22:11)
[2018-04-14] MEDS: HEPARIN SOD 5,000 UNIT/0.5 ML VIAL SQ SCH ×2 (08:12→22:11)
--- NOTE | 2018-04-14 16:49 | Procedure Note ---
Procedure Note Date of Service April 09, 2018 This is a late entry due to not being dropped off [facility]. Note Thoracentesis was done at the bedside, the patient was consented to the procedure, risks and benefits explained details, the patient was placed in upright position, the patient under ultrasound guidance, has a thoracentesis was done to the right side under strict sterile field, the skin was prepped with chlorhexidine, injected with 10 mL of 1% lidocaine, catheter was introduced using Seldinger technique, scalpel was used, the catheter introduced to the right pleural cavity, total amount of 1500 mL of blood-tinged fluid removed, the catheter was removed, pressure was applied at the insertion site for 2 minutes, patient tolerated the procedure very well, no immediate application, chest x-ray without pneumothorax, no complications. Fluid sent for analysis. Thank you
--- NOTE | 2018-04-14 17:49 | Hospitalist Progress Note ---
Date of Service April 14, 2018 Assessment & Plan (1) Altered mental status: Presented with acute confusion with the history of ongoing confusion for 2 months No documented history of dementia unclear etiology at this time, possible Metabolic Encephalopathy, in the setting of possible Underlying Dementia Hypothyroidism Pneumonia? --Management per below Brain MRI: moderated atrophy Neuro consulted PT/OT consulted -- mental status about the same, observed to be less irritable (2) Pneumonia: vs Mass? afebrile, denies cough CT chest ordered: IMPRESSION: 1. Moderate right and small left pleural effusions with subtotal right lower lobe atelectasis which accounts for the abnormality on prior chest radiograph. 2. Marked cardiomegaly. Trace pericardial effusion. 3. Moderate emphysema. 04/10/18 4. Small amount of upper abdominal ascites. Anasarca. no fever, leukocytosis since admission check procalcitonin On empiric ceftriaxone plus doxycycline Pulmonary consulted 04/10/18 s/p Thoracentesis for L sided pleural effusion transudative effusion no fever, leukocytosis procalcitonin normal d/c antibiotics remains stable from respiratory standpoint (3) Mass of right lung: CT chest ordered , which reveals pleural effusion Pulmonary consulted- no mass noted on CT chest 04/10/18 s/p thoracentesis transudative effusion 04/11/18 repeat CXR, slighty increased monitor (4) Cardiomyopathy: ATRIAL FLUTTER newly diagnosed (+) right pleural effusion, otherwise no signs of overt volume overload Cardiology consulted Metoprolol succinate 12.5 mg daily ordered Tolerating well, heart rates in the low 100s, monitor 04/10/18 plan for titration of Metoprolol and Digoxin 04/11/18 on Metoprolol for now HR 90s 04/12/18 Lasix 20mg po given monitor crea 04/13/18 HR 90s to low 100s asymptomatic BP on the lower side continue Metoprolol given Lasix the day prior, monitor volume status 1/8 HR remains contrled continue Metoprolol may need Lasix 20mg po twice a week to maintain euvolemia monitor volume status closely (5) Hypothyroidism: Has been on 112 mcg of thyroxine high TSH, low t4/t3 Family reports patient has not been taking her levothyroxine regularly Discussed with endocrinology in [facility], recommend 2-day course of IV levothyroxine at 88 mcg, will start tomorrow Then resume levothyroxine 112 mcg daily, repeat thyroid function test in 6 weeks T4 improved to 0.8 resumed Levothyroxine 112mcg daily will need repeat TSH/Free T4 in 4-6 weeks (6) Delirium: noted early AM 04/09/18 PRN Haldol reorientation less agitation Psych consulted (7) Acute kidney injury superimposed on chronic kidney disease: crea 1.6 resolved (8) Hypertension: Lisinopril on hold in light of elevated crea BP on the low side monitor (9) Major depressive disorder: Has not been taking any medicine now Psych consulted Also has history of problem with swallowing -- Speech eval ordered: noted recommendations (10) Discharge planning issues: plant to transition to SNF when accepted (11) DVT prophylaxis: SCDs, heparin discussed case at length with patient's and son they are agreeable and comfortable with plan of care Subjective ff up for AMS sitting in bedside chair, at bedside comfortable mental status about the same, appears more calm denies chest pain, dyspnea, palpitations, dizziness appetite fair no other symptoms Physical Exam 2 Vital Signs (Past 24 Hours): Last Vital Signs Temp 36.6 C 04/14/18 15:00 Pulse 94 H 04/14/18 15:00 Resp 18 04/14/18 15:00 BP 106/75 04/14/18 15:00 Pulse Ox 90 04/14/18 15:00 Physical Exam: General- oriented x 1, not in distress, speaks in sentences with no effort or accessory muscle use Eyes- anicteric Neck- no JVD Lungs- clear BS bilaterally Heart- normal rate, irregularly irregular rhythm; no murmurs Abdomen- normal bowel sounds, nondistended, soft, nontender Extremities- trace pretibial edema, no calf tenderness Neuro- alert, oriented x 1; no gross focal neurologic deficits Skin- warm & dry Results & Data Laboratory Results Laboratory Results - last 24 hr 04/09/18 04/14/18 09:00 05:59 Sodium 139 Potassium 3.7 Chloride 109 H Carbon Dioxide 22 Anion Gap 8.0 BUN 35 H Creatinine 1.59 H Est Cr Clr Drug Dosing 24.8 Est GFR ( Amer) 35.4 Est GFR (Non-Af Amer) 30.6 BUN/Creatinine Ratio 21.9 H Glucose 90 Calcium 8.7 Vitamin B1 <6 L _ (1) Altered mental status Altered mental status type: unspecified Coma depth: Coma timing: Qualified Code(s): R41.82 - Altered mental status, unspecified (2) Pneumonia Aspiration pneumonia type: Laterality: right Lung location: lower lobe of lung Pneumonia type: due to unspecified organism Qualified Code(s): J18.1 - Lobar pneumonia, unspecified organism
[2018-04-14] MEDS: HALOPERIDOL LACTATE 5 MG/ML 1 ML VIAL IM PRN (21:57)
[2018-04-15] MEDS: LEVOTHYROXINE SODIUM 112 MCG TABLET PO SCH (06:22)
[2018-04-15 08:51] LABS: BUN Creatinine Ratio 25.3 (10-20); Calcium 8.5 mg/dl (8.5-10.1); Creatinine Clr Calc Pharmacy 27.2 ml/min; Est GFR (African American) 39.6; Est GFR (Non-African American) 34.2; Potassium 3.8 mmol/L (3.5-5.1)
[2018-04-15] MEDS: METOPROLOL SUCC 25MG EXT REL TAB PO SCH ×2 (09:07→20:50)
[2018-04-15] MEDS: HEPARIN SOD 5,000 UNIT/0.5 ML VIAL SQ SCH ×2 (09:08→20:57)
--- NOTE | 2018-04-15 12:03 | Psychiatric Progress Note ---
Date of Service April 15, 2018 Impression / Recommendations Impression 77 yo woman with multiple medical conditions, now approaching discharge to nursing facility. Cognition and behavior improved during the day, but becomes agitated in the evenings. Unfortunately there are many reasons not to use scheduled antipsychotics in people with possible dementia (Black box warning, QTc prolongation, risk for falls) but behavior continues to be a problem. I have spoken with her correctional counselor/case manager, Ms. Tate, to discuss the problem. I have agreed to discontinue the Haldol given that prns cannot be used in penitentiary environments. She has agreed to talk with nursing about delirium/dementia interventions including getting her out of bed during the day, providing exercise and activity in addition orientation measures as a robust behavioral management strategy should be attempted before other meds considered. Interval History Chief Complaint follow up of dementia Subjective Subjective The patient has been in the hospital for 8 days. She was seen by Dr. Robles from our service early in her stay and was recommended that all correctable factors contributing to AMS be addressed as there was evidence of delirium, possibly superimposed on a dementing process. She has progressed to the point that she is now being referred to nursing facilities as she is medically stable , but has been requiring Haldol in the evenings for agitation/possible sun downing behaviors. We have been asked to give some recommendations. Nursing notes indicate that she is alert, oriented and cooperative during the day. Physical Exam Vital Signs (Past 24 Hours) Last Vital Signs Temp 36.8 C 04/15/18 11:32 Pulse 95 H 04/15/18 11:32 Resp 18 04/15/18 11:32 BP 106/73 04/15/18 11:32 Pulse Ox 97 04/15/18 11:32 Results & Data Laboratory Results Laboratory Results - last 24 hr 04/09/18 04/15/18 09:00 07:49 Sodium 140 Potassium 3.8 Chloride 110 H Carbon Dioxide 24 Anion Gap 6.0 BUN 37 H Creatinine 1.45 H Est Cr Clr Drug Dosing 27.2 Est GFR ( Amer) 39.6 Est GFR (Non-Af Amer) 34.2 BUN/Creatinine Ratio 25.3 H Glucose 74 Calcium 8.5 Vitamin B1 <6 L Current Inpatient Medications Current Inpatient Medications: Current Inpatient Medications Haloperidol Lactate (Haldol) 2 mg IM Q2H PRN PRN Reason: Agitation Stop: 05/09/18 06:16 Last Admin: 04/14/18 21:57 Dose: 2 mg Heparin Sodium (Porcine) (Heparin Sodium (Porcine)) 5,000 units SQ Q12 [facility] Stop: 05/08/18 20:59 Last Admin: 04/15/18 09:08 Dose: 5,000 units Levothyroxine Sodium (Synthroid) 112 mcg PO DAILYBB [facility] Stop: 05/12/18 13:29 Last Admin: 04/15/18 06:22 Dose: Not Given Metoprolol Succinate (Toprol Xl) 12.5 mg PO BID [facility] Stop: 05/10/18 20:59 Last Admin: 04/15/18 09:07 Dose: 12.5 mg Ranitidine HCl (Zantac) 300 mg PO DAILY [facility] Stop: 05/07/18 15:14 Last Admin: 04/15/18 09:07 Dose: 300 mg
--- NOTE | 2018-04-15 12:28 | Hospitalist Progress Note ---
Date of Service April 15, 2018 Assessment & Plan (1) Altered mental status: Presented with progessive confusion for the past few months, worsening few weeks prior to admission No documented history of dementia Neurology and Psychiatry consulted Brain MRI: moderate atrophy felt to be underlying Dementia with possible metabolic encephalopathy from hypothyroidism, CHF hypothyroidism and CHF managed as noted below overall, patient's mental status seems to be about the same has episodes of agitation/worsening confusion in the evenings requiring Haldol discussed with Psych Liaison RN Zuly Casillas- recommend to d/c Haldol and concentrate on RN interventions- discussed with patient's RN continue to observe closely case management on board, currently making referrals to SNF (2) Pleural effusion: initial CXR showed possible pneumonia vs. mass CT chest ordered: 1. Moderate right and small left pleural effusions with subtotal right lower lobe atelectasis which accounts for the abnormality on prior chest radiograph. 2. Marked cardiomegaly. Trace pericardial effusion. 3. Moderate emphysema. Dr. Ellington from Pulmonary consulted s/p Thoracentesis, Right side draining 1 L Cytology Studies: - BENIGN MESOTHELIAL CELLS AND SCATTERED LYMPHOCYTES - NEGATIVE FOR MALIGNANCY likely transudative secondary to CHF/Cardiomyopathy at this time, Lasix 20mg twice a week- wed and sat monitor Pneumonia ruled out procalcitonin normal, afebrile, no leukocytosis (3) Cardiomyopathy: with Atrial Flutter new diagnosis acute systolic CHF Echo: severely reduced LV systolic function with moderate to severe global hypokinesia ef 25-30% reduced RV systolic function severe mitral regurgitation, severe tricuspid regurgitaion, severe biatrial enlargement (+) right pleural effusion, otherwise no signs of overt volume overload- s/p thoracentesis Cardiology consulted- Dr. Bell Metoprolol succinate 12.5 mg daily ordered Tolerating well, heart rates in the low 100s, monitor given Lasix PRN- being cautious due to CKD- for now, will order Lasix 20mg twice a week- wed and sat to maintain euvolemia monitor crea while on Lasix (4) Atypical atrial flutter: new diagnosis Cardiology consulted Metoprolol succinate 12.5 mg daily ordered Tolerating well, heart rates in the 90s- low 100s, monitor CHADsVASC at least 4 anticoagulation deferred at this time due to fall risk and iron deficiency anemia check FOBT, CBC may benefit from ASA 81mg po for stroke prevention (5) Hypothyroidism: prescribed with 112 mcg of thyroxine, with inconsistent intake per family high TSH, low t4/t3 Discussed with endocrinology in [facility], recommend 2-day course of IV levothyroxine at 88 mcg Then resume levothyroxine 112 mcg daily, repeat thyroid function test in 6 weeks T4 improved to 0.8 resumed Levothyroxine 112mcg daily will need repeat TSH/Free T4 in 4-6 weeks (6) Delirium: overall, patient's mental status seems to be about the same has episodes of agitation/worsening confusion in the evenings requiring Haldol discussed with Psych Liaison RN Zuly Casillas- recommend to d/c Haldol and concentrate on RN interventions- discussed with patient's RN (7) Acute kidney injury superimposed on chronic kidney disease: resolved monitor while on Lasix (8) Hypertension: Lisinopril on hold in light of elevated crea BP on the low side monitor (9) Major depressive disorder: not on antidepressants Psych on board Also has history of problem with swallowing -- Speech eval ordered:soft, bites sized diet, aspiration precautions (10) Discharge planning issues: plant to transition to SNF when accepted ff up with PCP ff up with Cardiology Dr. Calix /Ray in 2 weeks ff up with Neurology Dr. Vaughan in 2 weeks (11) DVT prophylaxis: SCDs, heparin discussed case at length with patient's they are agreeable and comfortable with plan of care Subjective ff up for altered mental status patient noted to be agitated yesterday, did not improve with RN interventions, given Haldol IM today, patient seen resting in bed, calm, cooperative still confused denies chest pain, dyspnea, dizziness, palpitations remains in a flutter no other symptoms Physical Exam 2 Vital Signs (Past 24 Hours): Last Vital Signs Temp 36.8 C 04/15/18 11:32 Pulse 95 H 04/15/18 11:32 Resp 18 04/15/18 11:32 BP 106/73 04/15/18 11:32 Pulse Ox 97 04/15/18 11:32 Physical Exam: General- oriented x 1, not in distress, speaks in sentences with no effort or accessory muscle use Eyes- anicteric Neck- no JVD Lungs- clear breath sounds bilaterally no crackles no wheezing Heart- mild tachy, irregularly irregular rhythm; no murmurs Abdomen- normal bowel sounds, nondistended, soft, nontender Extremities-mild lower leg edema, no calf tenderness Neuro- alert, oriented x 1; no gross focal neurologic deficits Skin- warm & dry Results & Data Laboratory Results Laboratory Results - last 24 hr 04/09/18 04/15/18 09:00 07:49 Sodium 140 Potassium 3.8 Chloride 110 H Carbon Dioxide 24 Anion Gap 6.0 BUN 37 H Creatinine 1.45 H Est Cr Clr Drug Dosing 27.2 Est GFR ( Amer) 39.6 Est GFR (Non-Af Amer) 34.2 BUN/Creatinine Ratio 25.3 H Glucose 74 Calcium 8.5 Vitamin B1 <6 L _ (1) Altered mental status Altered mental status type: unspecified Coma depth: Coma timing: Qualified Code(s): R41.82 - Altered mental status, unspecified
[2018-04-15 13:05] LABS: Basophils # (auto) 0.03 K/uL (0-0.2); Basophils % (auto) 0.5 %; Eosinophils # (auto) 0.11 K/uL (0-0.5); Eosinophils % (auto) 1.7 %; Hemoglobin 11.7 g/dL (12.0-16.0); Immature Granulocytes # (auto) 0.02 K/uL (0.00-0.02); Immature Granulocytes % (auto) 0.3 %; Lymphocytes # (auto) 0.81 K/uL (1.2-3.4); Lymphocytes % (auto) 12.3 %; Mean Corpuscular Hgb Conc 30.8 g/dL (32-36); Mean Corpuscular Volume 77.1 fL (80-100); Monocytes % (auto) 13.6 %; Neutrophils # (auto) 4.73 K/uL (1.4-6.5); Neutrophils % (auto) 71.6 %; Platelet Count 225 K/uL (130-400); RDW Coefficient of Variation 20.7 % (11.5-14.5); RDW Standard Deviation 56.3 fL (36.4-46.3); Red Blood Count 4.93 M/uL (4.2-5.4)
[2018-04-15 13:31] LABS: Anisocytosis Present; Echinocytes 2+; Hypochromasia Present
[2018-04-15] MEDS: FUROSEMIDE 20 MG TAB PO SCH ×2 (14:18→15:39)
[2018-04-15] MEDS: ASPIRIN 81 MG ECTAB PO SCH (16:09)
[2018-04-15] MEDS: FERROUS SULFATE 325 MG TAB PO SCH (17:03)
[2018-04-15] MEDS ORDERED: SODIUM CHLORIDE 0.9% 250 ML IV ONE (19:44)
[2018-04-16 07:22] LABS: Basophils # (auto) 0.02 K/uL (0-0.2); Basophils % (auto) 0.3 %; Eosinophils # (auto) 0.07 K/uL (0-0.5); Eosinophils % (auto) 1.1 %; Hematocrit (blood only) 38.1 % (37-47); Immature Granulocytes # (auto) 0.02 K/uL (0.00-0.02); Immature Granulocytes % (auto) 0.3 %; Lymphocytes # (auto) 1.02 K/uL (1.2-3.4); Lymphocytes % (auto) 15.5 %; Mean Corpuscular Hgb Conc 31.5 g/dL (32-36); Mean Corpuscular Volume 76.7 fL (80-100); Monocytes # (auto) 0.77 K/uL (0.11-0.59); Monocytes % (auto) 11.7 %; Neutrophils # (auto) 4.66 K/uL (1.4-6.5); Neutrophils % (auto) 71.1 %; Platelet Count 276 K/uL (130-400); RDW Coefficient of Variation 20.9 % (11.5-14.5); RDW Standard Deviation 56.1 fL (36.4-46.3); Red Blood Count 4.97 M/uL (4.2-5.4); White Blood Count 6.56 K/uL (4.8-10.8)
[2018-04-16] MEDS: METOPROLOL SUCC 25MG EXT REL TAB PO SCH (07:34)
[2018-04-16] MEDS: LEVOTHYROXINE SODIUM 112 MCG TABLET PO SCH (07:34)
[2018-04-16] MEDS: FERROUS SULFATE 325 MG TAB PO SCH ×2 (07:36→17:09)
[2018-04-16] MEDS: HEPARIN SOD 5,000 UNIT/0.5 ML VIAL SQ SCH ×2 (07:36→20:53)
[2018-04-16] MEDS: ASPIRIN 81 MG ECTAB PO SCH (07:37)
--- NOTE | 2018-04-16 07:38 | XRay Report ---
XR chest 1V portable HISTORY: follow up lung infiltrates COMPARISON: Chest 04/11/2018. Chest CT 04/08/2018. FINDINGS: No pneumothorax. Moderate right and small left pleural effusions persist. Hazy appearance t o the lung bases likely represents a combination of consolidation and layering pleural fluid. This is also similar to the prior study. The heart remains enlarged. Perihilar interstitial and vascular thi ckening consistent with mild congestive change. IMPRESSION: 1. No change in the moderate right and small left pleural effusions. 2. Bibasilar densities persist. 3. Cardiomegaly and mild interstitial pulmonary edema are noted. Electronically signed by: Steve Chavez M.D. 04/16/2018 7:37 AM
[2018-04-16 07:53] LABS: BUN Creatinine Ratio 25.5 (10-20); Calcium 8.5 mg/dl (8.5-10.1); Creatinine Clr Calc Pharmacy 26.3 ml/min; Est GFR (Non-African American) 32.8; Potassium 3.9 mmol/L (3.5-5.1)
[2018-04-16 08:07] LABS: Anisocytosis Present; Echinocytes 3+
[2018-04-16] MEDS ORDERED: FUROSEMIDE 20 MG TAB PO ONE (08:57)
[2018-04-16] MEDS ORDERED: DIGOXIN 0.125 MG TAB PO ONE (08:57)
--- NOTE | 2018-04-16 17:27 | Hospitalist Progress Note ---
Date of Service April 16, 2018 Assessment & Plan (1) Altered mental status: Presented with progessive confusion for the past few months, worsening few weeks prior to admission No documented history of dementia Neurology and Psychiatry consulted Brain MRI: moderate atrophy felt to be underlying Dementia with possible metabolic encephalopathy from hypothyroidism, CHF hypothyroidism and CHF managed as noted below overall, patient's mental status seems to be about the same had episodes of agitation/worsening confusion in the evenings on this admission was given haldol previously during this hospitalization for behavior which made patient very sedated and lethargic since being off haldol patient is more alert and interactive with medical staff (2) Pleural effusion: initial CXR showed possible pneumonia vs. mass CT chest ordered: 1. Moderate right and small left pleural effusions with subtotal right lower lobe atelectasis which accounts for the abnormality on prior chest radiograph. 2. Marked cardiomegaly. Trace pericardial effusion. 3. Moderate emphysema. Pneumonia ruled out procalcitonin normal, afebrile, no leukocytosis Dr. Ellington from Pulmonary consulted s/p Thoracentesis, Right side draining 1 L Cytology Studies: - BENIGN MESOTHELIAL CELLS AND SCATTERED LYMPHOCYTES - NEGATIVE FOR MALIGNANCY likely transudative secondary to CHF/Cardiomyopathy has been on hospital regimen of Lasix 20mg twice a week- wed and sat. additional Lasix given on 04/16/18 as CXR with mild interstitial pulmonary edema noted (3) Cardiomyopathy: with Atrial Flutter new diagnosis acute systolic CHF Echo: severely reduced LV systolic function with moderate to severe global hypokinesia ef 25-30% reduced RV systolic function severe mitral regurgitation, severe tricuspid regurgitaion, severe biatrial enlargement (+) right pleural effusion, otherwise no signs of overt volume overload- s/p thoracentesis switching from Metoprolol 12.5 mg BID to Metoprolol succcinate 12.5 daily with addition of digoxin on 04/16/18 has been on hospital regimen of Lasix 20mg twice a week- wed and sat. additional Lasix given on 04/16/18 as CXR with mild interstitial pulmonary edema noted (4) Atypical atrial flutter: new diagnosis switching from Metoprolol 12.5 mg BID to Metoprolol succcinate 12.5 daily with addition of digoxin on 04/16/18to control heart rate and avoid hypotension CHADsVASC at least 4 anticoagulation deferred at this time due to fall risk and iron deficiency anemia has instead been on ASA 81mg po for stroke prevention (5) Hypothyroidism: at home prescribed with 112 mcg of thyroxine, with inconsistent intake per family high TSH, low t4/t3 previous hospitalist on this admission Discussed with endocrinology in [facility], recommend 2-day course of IV levothyroxine at 88 mcg Then resume levothyroxine 112 mcg daily, repeat thyroid function test in 6 weeks T4 improved to 0.8 continue Levothyroxine 112mcg daily will need repeat TSH/Free T4 in 4-6 weeks (6) Delirium: was given haldol previously during this hospitalization for behavior which made patient very sedated and lethargic since being off haldol patient is more alert and interactive with medical staff (7) Acute kidney injury superimposed on chronic kidney disease: resolved monitor while on Lasix (8) Hypertension: blood pressure has been generally low normotensive without home dose lisinopril hold lisinopril adjusting metoprolol dosing as above Also has history of problem with swallowing -- Speech eval ordered:soft, bites sized diet, aspiration precautions (9) Major depressive disorder: avoid further haldol at this time (10) Discharge planning issues: when medicallly cleared, patient will plan to transition to [facility] if have authorization for SNF approval ff up with PCP ff up with Cardiology Dr. Calix /Ray in 2 weeks ff up with Neurology Dr. Vaughan in 2 weeks (11) DVT prophylaxis: SCDs, heparin discussed case at length with patient's they are agreeable and comfortable with plan of care Subjective Patient today is more energetic compared to yesterday when she was very drowsy. This improvement is likley due to being off of the haldol She is able to respond to questions. She denies acute pain or acute shortness of breath. She denies palpitations. Heart rhythm continues to be in atrial fibrillation with mild tachycardia with heart rate between 100 to 110 bpm Physical Exam 2 Vital Signs (Past 24 Hours): Last Vital Signs Temp 36.1 C L 04/16/18 15:22 Pulse 104 H 04/16/18 15:22 Resp 16 04/16/18 15:22 BP 110/79 04/16/18 15:22 Pulse Ox 94 04/16/18 15:22 Constitutional: WD/WN, vitals as above Eyes: PERRL, conjunctivae normal, anicteric sclerae EOM intact bilaterally ENMT: external ear and nose normal, oropharynx normal Neck: normal visual inspection and trachea midline Respiratory: normal respiratory effort Cardiovascular: Rate/Rhythm: regular rhythm (atrial fibrillation) and + tachycardic Gastrointestinal (Abdomen): normal bowel sounds, soft, nontender, no hepatosplenomegaly Musculoskeletal: Head/Neck/Chest: normocephalic and head atraumatic Neurologic: PERRL, EOMI, accommodation nl, no face palsy, no dysarthria Psychiatric: Orientation: alert _ (1) Altered mental status Altered mental status type: unspecified Coma depth: Coma timing: Qualified Code(s): R41.82 - Altered mental status, unspecified
[2018-04-17] MEDS: METOPROLOL SUCC 25MG EXT REL TAB PO SCH (09:31)
[2018-04-17] MEDS: ASPIRIN 81 MG ECTAB PO SCH (09:31)
[2018-04-17 09:32] LABS: BUN Creatinine Ratio 26.1 (10-20); Calcium 8.4 mg/dl (8.5-10.1); Creatinine Clr Calc Pharmacy 27.4 ml/min; Est GFR (African American) 39.9; Est GFR (Non-African American) 34.5; Magnesium 2.2 mg/dl (1.8-2.4); Potassium 3.8 mmol/L (3.5-5.1)
[2018-04-17] MEDS: LEVOTHYROXINE SODIUM 112 MCG TABLET PO SCH (09:32)
[2018-04-17] MEDS: HEPARIN SOD 5,000 UNIT/0.5 ML VIAL SQ SCH ×2 (09:54→21:19)
[2018-04-17] MEDS ORDERED: dilTIAZem HCL 30 MG TAB PO ONE (10:15)
[2018-04-17] MEDS: FERROUS SULFATE 325 MG TAB PO SCH ×2 (10:46→16:34)
[2018-04-17] MEDS: dilTIAZem HCL 30 MG TAB PO SCH ×2 (13:50→20:12)
[2018-04-17] MEDS: DIGOXIN 0.125 MG TAB PO SCH (16:33)
--- NOTE | 2018-04-17 18:13 | Hospitalist Progress Note ---
Date of Service April 17, 2018 Assessment & Plan (1) Altered mental status: Presented with progessive confusion for the past few months, worsening few weeks prior to admission No documented history of dementia Neurology and Psychiatry consulted Brain MRI: moderate atrophy felt to be underlying Dementia with possible metabolic encephalopathy from hypothyroidism, CHF hypothyroidism and CHF managed as noted below overall, patient's mental status seems to be about the same had episodes of agitation/worsening confusion in the evenings on this admission was given haldol previously during this hospitalization for behavior which made patient very sedated and lethargic since being off haldol patient is more alert and interactive with medical staff (2) Pleural effusion: initial CXR showed possible pneumonia vs. mass CT chest ordered: 1. Moderate right and small left pleural effusions with subtotal right lower lobe atelectasis which accounts for the abnormality on prior chest radiograph. 2. Marked cardiomegaly. Trace pericardial effusion. 3. Moderate emphysema. Pneumonia ruled out procalcitonin normal, afebrile, no leukocytosis Dr. Ellington from Pulmonary consulted s/p Thoracentesis, Right side draining 1 L Cytology Studies: - BENIGN MESOTHELIAL CELLS AND SCATTERED LYMPHOCYTES - NEGATIVE FOR MALIGNANCY likely transudative secondary to CHF/Cardiomyopathy has been on hospital regimen of Lasix 20mg twice a week- wed and sat. additional Lasix given on 04/16/18 as CXR with mild interstitial pulmonary edema noted (3) Cardiomyopathy: with Atrial Flutter new diagnosis acute systolic CHF Echo: severely reduced LV systolic function with moderate to severe global hypokinesia ef 25-30% reduced RV systolic function severe mitral regurgitation, severe tricuspid regurgitaion, severe biatrial enlargement (+) right pleural effusion, otherwise no signs of overt volume overload- s/p thoracentesis switching from Metoprolol 12.5 mg BID to Metoprolol succcinate 12.5 daily with addition of digoxin on 04/16/18 has been on hospital regimen of Lasix 20mg twice a week- wed and sat. additional Lasix given on 04/16/18 as CXR with mild interstitial pulmonary edema noted (4) Atypical atrial flutter: new diagnosis on this admission 04/16/18 switching from Metoprolol 12.5 mg BID to Metoprolol succcinate 12.5 mg daily with addition of digoxin to control heart rate and avoid hypotension 04/17/18 have added diltiazem 30 mg as TID as recommended by cardiology Dr. Bell on top of current metoprolol succinate 12.5 mg and digoxin, still tachycardic but will watch for any bradycardic flucatuations CHADsVASC at least 4 anticoagulation deferred at this time due to fall risk and iron deficiency anemia has instead been on ASA 81mg po for stroke prevention (5) Hypothyroidism: at home prescribed with 112 mcg of thyroxine, with inconsistent intake per family high TSH, low t4/t3 previous hospitalist on this admission Discussed with endocrinology in [facility], recommend 2-day course of IV levothyroxine at 88 mcg Then resume levothyroxine 112 mcg daily, repeat thyroid function test in 6 weeks T4 improved to 0.8 continue Levothyroxine 112mcg daily will need repeat TSH/Free T4 in 4-6 weeks (6) Delirium: was given haldol previously during this hospitalization for behavior which made patient very sedated and lethargic since being off haldol patient is more alert and interactive with medical staff (7) Acute kidney injury superimposed on chronic kidney disease: resolved monitor while on Lasix (8) Hypertension: blood pressure has been generally low normotensive without home dose lisinopril hold lisinopril adjusting heart rate and rhythm control medications as above Also has history of problem with swallowing -- Speech eval ordered:soft, bites sized diet, aspiration precautions (9) Major depressive disorder: avoid further haldol at this time (10) Discharge planning issues: [facility] has obtained authorization from pt's insurance, [employer] [facility] [employer], when medically cleared, patient will likely transition to [facility] ff up with PCP ff up with Cardiology Dr. Calix /Ray in 2 weeks ff up with Neurology Dr. Vaughan in 2 weeks (11) DVT prophylaxis: SCDs, heparin Subjective She is able to respond to questions. She denies acute pain or acute shortness of breath. She did report earlier today of feeling palpitations Heart rhythm continues to be in atrial fibrillation with mild tachycardia with heart rate between 100 to 110 bpm of note the addition of diltiazem appeared to have affected the heart rate somewhat when it tranisiently dropped to 50s. but this went up towards the 80s and again around 110 bpm Patient expresses eagerness to go home. Hospitalist have explained to her that she does not have stable heart rate Physical Exam 2 Vital Signs (Past 24 Hours): Last Vital Signs Temp 36.3 C L 04/17/18 15:31 Pulse 110 H 04/17/18 16:33 Resp 20 04/17/18 15:31 BP 103/67 04/17/18 16:32 Pulse Ox 97 04/17/18 15:31 Constitutional: WD/WN, vitals as above Eyes: PERRL, conjunctivae normal, anicteric sclerae EOM intact bilaterally ENMT: external ear and nose normal, oropharynx normal Neck: normal visual inspection and trachea midline Respiratory: normal respiratory effort Cardiovascular: Rate/Rhythm: + tachycardic (atrial fibrillation) Gastrointestinal (Abdomen): normal bowel sounds, soft, nontender, no hepatosplenomegaly Musculoskeletal: Head/Neck/Chest: normocephalic and head atraumatic Neurologic: PERRL, EOMI, accommodation nl, no face palsy, no dysarthria Psychiatric: Orientation: alert _ (1) Altered mental status Altered mental status type: unspecified Coma depth: Coma timing: Qualified Code(s): R41.82 - Altered mental status, unspecified
[2018-04-18] MEDS: LEVOTHYROXINE SODIUM 112 MCG TABLET PO SCH (06:32)
[2018-04-18] MEDS: ASPIRIN 81 MG ECTAB PO SCH (08:01)
[2018-04-18] MEDS: dilTIAZem HCL 30 MG TAB PO SCH ×4 (08:01→21:04)
[2018-04-18] MEDS: FUROSEMIDE 20 MG TAB PO SCH (08:01)
[2018-04-18] MEDS: HEPARIN SOD 5,000 UNIT/0.5 ML VIAL SQ SCH ×2 (08:02→20:57)
[2018-04-18] MEDS: FERROUS SULFATE 325 MG TAB PO SCH ×2 (08:02→16:13)
[2018-04-18] MEDS: METOPROLOL SUCC 25MG EXT REL TAB PO SCH (08:02)
--- NOTE | 2018-04-18 15:26 | XRay Report ---
XR chest 1V portable CLINICAL HISTORY: Annual chest x-ray. Bilateral pulmonary infiltrates. COMPARISON STUDY: 04/16/2018 FINDINGS: The heart remains enlarged. There are bilateral pleural effusions with associated basilar a irspace opacities. There is radiographic evidence of mild congestive failure/fluid overload.[ A new f ocal airspace opacity within left perihilar region, likely represents asymmetric edema. IMPRESSION: 1. Persistent cardiomegaly and radiographic evidence of pulmonary vascular congestion 2. Persistent bilateral pleural effusions right greater than left with associated basilar airspace op acities. Although likely atelectatic, a superimposed infectious/inflammatory process could appear sim ilar 3. New left perihilar airspace opacity, likely representing asymmetric edema. Electronically signed by: Ciaran Mac M.D. 04/18/2018 3:24 PM
--- NOTE | 2018-04-18 15:49 | Cardiology Progress Note ---
Date of Service April 18, 2018 This elderly patient has severe dementia but is very comfortable and conversive. She remains in atrial fibrillation on the heart monitor with rates in the low 100s and then drops in the 70s while she is sleeping. I would not recommend adding any additional negative chronotropic agents and except what we have. There are no good choices here. If we can increase the digoxin then due to her renal insufficiency she could develop toxicity. If we increase her calcium channel franny or beta-franny then her blood pressure will be a problem. Another option would be amiodarone however because of her hypothyroidism I do not believe that that is a good option either. Therefore I would just continue current treatment. As I mentioned above the patient is comfortable and I think at this point we could do more harm than good. Physical Exam 2 Vital Signs (Past 24 Hours): Last Vital Signs Temp 36.6 C 04/18/18 14:59 Pulse 110 H 04/18/18 14:59 Resp 16 04/18/18 14:59 BP 97/61 L 04/18/18 08:00 Pulse Ox 85 L 04/18/18 14:59
[2018-04-18] MEDS: DIGOXIN 0.125 MG TAB PO SCH (16:13)
--- NOTE | 2018-04-18 17:36 | Hospitalist Progress Note ---
Date of Service April 18, 2018 Assessment & Plan (1) Altered mental status: Presented with progessive confusion for the past few months, worsening few weeks prior to admission No documented history of dementia Neurology and Psychiatry consulted Brain MRI: moderate atrophy felt to be underlying Dementia with possible metabolic encephalopathy from hypothyroidism, CHF hypothyroidism and CHF managed as noted below overall, patient's mental status seems to be about the same had episodes of agitation/worsening confusion in the evenings on this admission was given haldol previously during this hospitalization for behavior which made patient very sedated and lethargic since being off haldol patient is more alert and interactive with medical staff (2) Pleural effusion: initial CXR showed possible pneumonia vs. mass CT chest ordered: 1. Moderate right and small left pleural effusions with subtotal right lower lobe atelectasis which accounts for the abnormality on prior chest radiograph. 2. Marked cardiomegaly. Trace pericardial effusion. 3. Moderate emphysema. Pneumonia ruled out procalcitonin normal, afebrile, no leukocytosis Dr. Ellington from Pulmonary consulted s/p Thoracentesis, Right side draining 1 L Cytology Studies: - BENIGN MESOTHELIAL CELLS AND SCATTERED LYMPHOCYTES - NEGATIVE FOR MALIGNANCY likely transudative secondary to CHF/Cardiomyopathy has been on hospital regimen of Lasix 20mg twice a week- wed and sat. additional Lasix given on 04/16/18 as CXR with mild interstitial pulmonary edema noted 04/18/18 she had already gotten oral Lasix 20 mg today. CXR shows more congestion , will give 20 mg IV Lasix as blood pressure generally low normotensive (3) Cardiomyopathy: with Atrial Flutter new diagnosis acute systolic CHF Echo: severely reduced LV systolic function with moderate to severe global hypokinesia ef 25-30% reduced RV systolic function severe mitral regurgitation, severe tricuspid regurgitaion, severe biatrial enlargement (+) right pleural effusion, otherwise no signs of overt volume overload- s/p thoracentesis switching from Metoprolol 12.5 mg BID to Metoprolol succcinate 12.5 daily with addition of digoxin on 04/16/18 has been on hospital regimen of Lasix 20mg twice a week- wed and sat. additional Lasix given on 04/16/18 as CXR with mild interstitial pulmonary edema noted 04/18/18 she had already gotten oral Lasix 20 mg today. CXR shows more congestion , will give 20 mg IV Lasix as blood pressure generally low normotensive (4) Atypical atrial flutter: new diagnosis on this admission 04/16/18 switching from Metoprolol 12.5 mg BID to Metoprolol succcinate 12.5 mg daily with addition of digoxin to control heart rate and avoid hypotension 04/17/18 have added diltiazem 30 mg as TID as recommended by cardiology Dr. Bell on top of current metoprolol succinate 12.5 mg and digoxin 04/18/[address] Heard from cardiology whether any other additional medication for rate control has heart rates still in atrial fibrillation to 110 bpm but he advises to continue current beta franny, digoxin , and diltiazem for now due to low normotensive blood pressures CHADsVASC at least 4 anticoagulation deferred at this time due to fall risk and iron deficiency anemia has instead been on ASA 81mg po for stroke prevention (5) Hypothyroidism: at home prescribed with 112 mcg of thyroxine, with inconsistent intake per family high TSH, low t4/t3 previous hospitalist on this admission Discussed with endocrinology in [facility], recommend 2-day course of IV levothyroxine at 88 mcg Then resume levothyroxine 112 mcg daily, repeat thyroid function test in 6 weeks T4 improved to 0.8 continue Levothyroxine 112mcg daily will need repeat TSH/Free T4 in 4-6 weeks (6) Delirium: was given haldol previously during this hospitalization for behavior which made patient very sedated and lethargic since being off haldol patient is more alert and interactive with medical staff (7) Acute kidney injury superimposed on chronic kidney disease: resolved monitor while on Lasix (8) Hypertension: blood pressure has been generally low normotensive without home dose lisinopril hold lisinopril adjusting heart rate and rhythm control medications as above Also has history of problem with swallowing -- Speech eval ordered:soft, bites sized diet, aspiration precautions (9) Major depressive disorder: avoid further haldol at this time (10) Discharge planning issues: [facility] has obtained authorization from pt's insurance, [facility], when medically cleared, patient will likely transition to [facility] ff up with PCP ff up with Cardiology Dr. Calix /Ray in 2 weeks ff up with Neurology Dr. Vaughan in 2 weeks (11) DVT prophylaxis: SCDs, heparin Subjective Heart rhythm continues to be in atrial fibrillation with mild tachycardia with heart rate between 100 to 110 bpm Patient awake and alert and breathing on nasal cannula. Appears to require more oxygen to maintain oxygen saturation today. Patient reports feeling unwell but cannot clarify what this feeling means she had already gotten oral Lasix 20 mg today. CXR shows more congestion, will give 20 mg IV Lasix as blood pressure generally low normotensive Physical Exam 2 Vital Signs (Past 24 Hours): Last Vital Signs Temp 36.6 C 04/18/18 14:59 Pulse 98 H 04/18/18 16:13 Resp 16 04/18/18 14:59 BP 97/61 L 04/18/18 08:00 Pulse Ox 85 L 04/18/18 14:59 Constitutional: WD/WN, vitals as above Eyes: PERRL, conjunctivae normal, anicteric sclerae EOM intact bilaterally ENMT: external ear and nose normal, oropharynx normal Neck: normal visual inspection and trachea midline Respiratory: normal respiratory effort Auscultation: + diminished lung sounds (diminished sounds of the bases of the lungs) Cardiovascular: Rate/Rhythm: regular rhythm (atrial fibrillation) and + tachycardic (atrial fibrillation) Gastrointestinal (Abdomen): normal bowel sounds, soft, nontender, no hepatosplenomegaly Musculoskeletal: Head/Neck/Chest: normocephalic and head atraumatic Neurologic: PERRL, EOMI, accommodation nl, no face palsy, no dysarthria Psychiatric: Orientation: alert _ (1) Altered mental status Altered mental status type: unspecified Coma depth: Coma timing: Qualified Code(s): R41.82 - Altered mental status, unspecified
[2018-04-18] MEDS ORDERED: FUROSEMIDE 20 MG in SYRINGE 0 ML IV ONE (17:45)
[2018-04-19] MEDS: LEVOTHYROXINE SODIUM 112 MCG TABLET PO SCH (05:37)
[2018-04-19 07:46] LABS: Basophils # (auto) 0.02 K/uL (0-0.2); Basophils % (auto) 0.3 %; Eosinophils # (auto) 0.05 K/uL (0-0.5); Eosinophils % (auto) 0.7 %; Hematocrit (blood only) 40.9 % (37-47); Hemoglobin 12.5 g/dL (12.0-16.0); Immature Granulocytes # (auto) 0.01 K/uL (0.00-0.02); Immature Granulocytes % (auto) 0.1 %; Lymphocytes % (auto) 10.3 %; Mean Corpuscular Volume 77.9 fL (80-100); Mean Platelet Volume 10.9 fL (7.4-10.4); Monocytes # (auto) 0.76 K/uL (0.11-0.59); Monocytes % (auto) 11.2 %; Neutrophils # (auto) 5.26 K/uL (1.4-6.5); Neutrophils % (auto) 77.4 %; Platelet Count 318 K/uL (130-400); RDW Coefficient of Variation 21.4 % (11.5-14.5); RDW Standard Deviation 58.5 fL (36.4-46.3); Red Blood Count 5.25 M/uL (4.2-5.4)
[2018-04-19 08:03] LABS: Albumin Level 2.9 gm/dl (3.4-5.0); Bilirubin Direct 0.4 mg/dl (0-0.2); Calcium 8.5 mg/dl (8.5-10.1); Creatinine Clr Calc Pharmacy 28.5 ml/min; Est GFR (Non-African American) 36.3; Magnesium 2.1 mg/dl (1.8-2.4); Potassium 3.3 mmol/L (3.5-5.1)
[2018-04-19 08:17] LABS: Albumin Globulin Ratio 0.7 (0.9-2); Bilirubin,Total 1.1 mg/dl (0.2-1); Globulin 4.1 gm/dl (2.5-4.0); Phosphorus 2.6 mg/dl (2.5-4.9); T4 Free Thyroxine 0.74 ng/dl (0.8-1.6)
[2018-04-19 08:28] LABS: Anisocytosis Present; Echinocytes 1+; Mean Corpuscular Hgb Conc 30.6 g/dL (32-36)
[2018-04-19] MEDS ORDERED: POTASSIUM CHLORIDE 20 MEQ TABCR PO STA (09:03)
[2018-04-19] MEDS: dilTIAZem HCL 30 MG TAB PO SCH ×3 (09:31→20:25)
[2018-04-19] MEDS: HEPARIN SOD 5,000 UNIT/0.5 ML VIAL SQ SCH ×2 (09:31→20:25)
[2018-04-19] MEDS: FERROUS SULFATE 325 MG TAB PO SCH ×2 (09:32→17:39)
[2018-04-19] MEDS: METOPROLOL SUCC 25MG EXT REL TAB PO SCH (09:32)
[2018-04-19] MEDS: ASPIRIN 81 MG ECTAB PO SCH (09:32)
[2018-04-19] MEDS: FUROSEMIDE 20 MG TAB PO SCH (10:59)
--- NOTE | 2018-04-19 11:03 | Hospitalist Progress Note ---
Date of Service April 19, 2018 Assessment & Plan (1) Altered mental status: Presented with progessive confusion for the past few months, worsening few weeks prior to admission No documented history of dementia Neurology and Psychiatry consulted Brain MRI: moderate atrophy felt to be underlying Dementia with possible metabolic encephalopathy from hypothyroidism, CHF hypothyroidism and CHF managed as noted below overall, patient's mental status seems to be about the same had episodes of agitation/worsening confusion in the evenings on this admission was given haldol previously during this hospitalization for behavior which made patient very sedated and lethargic since being off haldol patient is more alert and interactive with medical staff (2) Pleural effusion: initial CXR showed possible pneumonia vs. mass CT chest ordered: 1. Moderate right and small left pleural effusions with subtotal right lower lobe atelectasis which accounts for the abnormality on prior chest radiograph. 2. Marked cardiomegaly. Trace pericardial effusion. 3. Moderate emphysema. Pneumonia ruled out procalcitonin normal, afebrile, no leukocytosis Dr. Ellington from Pulmonary consulted, s/p Thoracentesis on 04/09/18 of right lung draining 1 L Cytology Studies: - BENIGN MESOTHELIAL CELLS AND SCATTERED LYMPHOCYTES - NEGATIVE FOR MALIGNANCY likely transudative secondary to CHF/Cardiomyopathy had then been on hospital regimen of Lasix 20mg twice a week- fri and sat. additional Lasix given on 04/16/18 as CXR with mild interstitial pulmonary edema noted 04/18/18 she had already gotten oral Lasix 20 mg today. CXR shows more congestion , and given 20 mg IV Lasix as blood pressure generally low normotensive 04/19/18 at this time will try to have patient consistent on scheduled Lasix as 20 mg oral BID to avoid hypotension (3) Cardiomyopathy: with Atrial Flutter new diagnosis acute systolic CHF Echo: severely reduced LV systolic function with moderate to severe global hypokinesia ef 25-30% reduced RV systolic function severe mitral regurgitation, severe tricuspid regurgitaion, severe biatrial enlargement 04/19/18 will continue metoprolol succinate 12.5 mg daily with daily digoxin and Diltiazem 30 mg TID with scheduled oral 20 mg BID Lasix (4) Atypical atrial flutter: new diagnosis on this admission 04/16/18 switching from Metoprolol 12.5 mg BID to Metoprolol succcinate 12.5 mg daily with addition of digoxin to control heart rate and avoid hypotension 04/17/18 have added diltiazem 30 mg as TID as recommended by cardiology Dr. Bell on top of current metoprolol succinate 12.5 mg and digoxin 04/18/[address] Heard from cardiology whether any other additional medication for rate control has heart rates still in atrial fibrillation to 110 bpm but he advises to continue current beta franny, digoxin , and diltiazem for now due to low normotensive blood pressures 04/19/18 will continue metoprolol succinate 12.5 mg daily with daily digoxin and Diltiazem 30 mg TID with scheduled oral 20 mg BID Lasix CHADsVASC at least 4 anticoagulation deferred at this time due to fall risk and iron deficiency anemia has instead been on ASA 81mg po for stroke prevention (5) Hypothyroidism: at home prescribed with 112 mcg of thyroxine, with inconsistent intake per family -found to have on this admission high TSH of 27 with low t4/t3 -previous hospitalist on this admission Discussed with endocrinology in [facility], recommend 2-day course of IV levothyroxine at 88 mcg Then resume levothyroxine 112 mcg daily which was completed -then resumed on Levothyroxine 112mcg daily orally -repeat TSH is 18.4 however the free T4 is still low as 0.74 -increase Levoythyroxine 125 mcg daily starting on 04/20/18 will need a repeat TSH/Free T4 in 4 to 5 weeks (6) Delirium: was given haldol previously during this hospitalization for behavior which made patient very sedated and lethargic since being off haldol patient is more alert and interactive with medical staff however still has periods of confusion and overall has poor understanding of current medical health (7) Acute kidney injury superimposed on chronic kidney disease: acute kidney injury resolved monitor renal function while on Lasix (8) Hypertension: blood pressure has been generally low normotensive without home dose lisinopril avoid lisinopril at this time adjusting heart rate and rhythm control medications as above Also has history of problem with swallowing - Speech eval recommended :soft, bites sized diet, aspiration precautions (9) Major depressive disorder: avoid further haldol at this time (10) Discharge planning issues: [facility] has obtained authorization from pt's insurance, [employer], when medically cleared, patient will likely transition to [facility] family members [phone], son [phone] will need follow up with PCP, Cardiology Dr. Calix /Ray, Neurology Dr. Vaughan (11) DVT prophylaxis: SCDs, heparin Subjective Heart rhythm continues to be in atrial fibrillation with mild tachycardia with heart rate between 100 to 110 bpm although in recent days there are periods of times when on monitor the heart rate is under 100 bpm. Patient awake and alert and breathing on nasal cannula on 4 liter/min She is confused as she needs to be oriented to the fact that she is in a hospital. However, she is calm and cooperative with medical staff Patient reports feeling unwell but still cannot clarify what this feeling means Physical Exam 2 Vital Signs (Past 24 Hours): Last Vital Signs Temp 36.5 C 04/19/18 07:31 Pulse 110 H 04/19/18 07:31 Resp 91 H 04/19/18 07:33 BP 118/81 04/19/18 07:31 Pulse Ox 91 04/19/18 07:33 Constitutional: WD/WN, vitals as above Eyes: PERRL, conjunctivae normal, anicteric sclerae EOM intact bilaterally ENMT: external ear and nose normal, oropharynx normal Neck: normal visual inspection and trachea midline Respiratory: normal respiratory effort Auscultation: + diminished lung sounds (diminished sounds of the bases of the lungs) Cardiovascular: Rate/Rhythm: regular rhythm (atrial fibrillation) and + tachycardic (atrial fibrillation) Gastrointestinal (Abdomen): normal bowel sounds, soft, nontender, no hepatosplenomegaly Musculoskeletal: Head/Neck/Chest: normocephalic and head atraumatic Neurologic: PERRL, EOMI, accommodation nl, no face palsy, no dysarthria Psychiatric: Orientation: alert _ (1) Altered mental status Altered mental status type: unspecified Coma depth: Coma timing: Qualified Code(s): R41.82 - Altered mental status, unspecified
[2018-04-19] MEDS: DIGOXIN 0.125 MG TAB PO SCH (17:39)
[2018-04-19] MEDS ORDERED: FUROSEMIDE 20 MG TAB PO SCH (21:00)
[2018-04-20] MEDS: LEVOTHYROXINE SODIUM 125 MCG TABLET PO SCH (04:51)
[2018-04-20] MEDS: FERROUS SULFATE 325 MG TAB PO SCH ×2 (07:52→16:40)
[2018-04-20] MEDS: METOPROLOL SUCC 25MG EXT REL TAB PO SCH (07:52)
[2018-04-20] MEDS: FUROSEMIDE 20 MG TAB PO SCH (07:53)
[2018-04-20] MEDS: ASPIRIN 81 MG ECTAB PO SCH (07:53)
[2018-04-20] MEDS: HEPARIN SOD 5,000 UNIT/0.5 ML VIAL SQ SCH ×2 (07:54→21:19)
[2018-04-20] MEDS: dilTIAZem HCL 30 MG TAB PO SCH (07:54)
[2018-04-20 08:38] LABS: Albumin Level 3.2 gm/dl (3.4-5.0); BUN Creatinine Ratio 20.6 (10-20); Calcium 8.8 mg/dl (8.5-10.1); Creatinine Clr Calc Pharmacy 28.5 ml/min; Est GFR (Non-African American) 36.3; Magnesium 2.2 mg/dl (1.8-2.4); Potassium 3.4 mmol/L (3.5-5.1)
[2018-04-20 08:41] LABS: Albumin Globulin Ratio 0.8 (0.9-2); Bilirubin,Total 1.1 mg/dl (0.2-1); Globulin 3.9 gm/dl (2.5-4.0); Total Protein 7.1 gm/dl (6.4-8.2)
--- NOTE | 2018-04-20 11:29 | Cardiology Progress Note ---
Date of Service April 20, 2018 Assessment & Plan (1) Cardiomyopathy: Patient presented acutely with confusion of several months duration echocardiogram in course of evaluation demonstrated diffuse LV dysfunction EF 20 -25% Hypothyroidism could be the etiology for her presentation with a cardiomyopathy. Guideline based therapies are indicated. Her heart rate seemed to be better controlled with her atrial arrhythmias and I would discontinue the diltiazem which is a negative inotrope. I would continue with the digoxin and metoprolol XL. I have added an JAMES inhibitor today. She appears to be euvolemic but I would continue her current diuretic regimen. Her recurrent right pleural effusion believe is based on myxedema from her thyroid disease along with malnutrition. I would continue thyroid replacement. Anticoagulation issues as previously referred to (2) Hypothyroidism: Continue replacement therapy (3) Atypical atrial flutter: As above, heart rates are better controlled and I would stop the diltiazem which is a negative inotrope. (4) Microcytic anemia: (5) Mass of right lung: Subjective The patient was alert and sitting in a chair today. She looks comfortable. She was not very conversive. Speaking with the nursing staff the patient has had an adequate oral intake for nutrition. Physical Exam 2 Vital Signs (Past 24 Hours): Last Vital Signs Temp 36.5 C 04/20/18 08:03 Pulse 58 L 04/20/18 08:03 Resp 18 04/20/18 08:03 BP 118/80 04/20/18 08:03 Pulse Ox 94 04/20/18 08:03 Physical Exam: General: no acute distress and stated age Head: normocephalic, no masses, lesions, tenderness or abnormalities Eyes: conjunctiva are pink and non-injected, sclera clear Neck: supple, no adenopathy, no bruits, normal jugular venous pulse, no hepatojugular reflux Chest: normal shape and normal respiratory effort Lungs: Diminished breath sounds on the right Cardiac Exam: - regular rate & rhythm, no murmurs gallops or rubs - normal S1, normal S2 Pulses: 2(+) throughout Abdomen: abdomen soft, non-tender, no abnormal masses and no hepatosplenomegaly Musculoskeletal: no gait disturbance, no joint inflammation, no deforming arthritis Extremities: no edema and no cyanosis Neuro: grossly normal exam Results & Data Laboratory Results Laboratory Results - last 24 hr 04/19/18 04/20/18 04/20/18 07:33 07:24 07:55 Sodium 140 Potassium 3.4 L Chloride 105 Carbon Dioxide 24 Anion Gap 10.0 BUN 28 H Creatinine 1.38 H Est Cr Clr Drug Dosing 28.5 Est GFR ( Amer) 42.0 Est GFR (Non-Af Amer) 36.3 BUN/Creatinine Ratio 20.6 H Glucose 93 POC Glucose 87 Calcium 8.8 Magnesium 2.2 Total Bilirubin 1.1 H AST 23 ALT 19 Alkaline Phosphatase 88 Total Protein 7.1 Albumin 3.2 L Globulin 3.9 Albumin/Globulin Ratio 0.8 L Thyroxine (T4) 3.7 L Digoxin 04/20/18 07:55 Sodium Potassium Chloride Carbon Dioxide Anion Gap BUN Creatinine Est Cr Clr Drug Dosing Est GFR ( Amer) Est GFR (Non-Af Amer) BUN/Creatinine Ratio Glucose POC Glucose Calcium Magnesium Total Bilirubin AST ALT Alkaline Phosphatase Total Protein Albumin Globulin Albumin/Globulin Ratio Thyroxine (T4) Digoxin 1.1 Medications Administered Current Inpatient Medications Aspirin (Ecotrin Ectab) [facility] Stop: 05/15/18 08:59 Last Admin: 04/20/18 07:53 Dose: 81 mg Digoxin (Lanoxin) 0.125 mg PO DAILY@1600 [facility] Stop: 05/17/18 15:59 Last Admin: 04/19/18 17:39 Dose: 0.125 mg Ferrous Sulfate (Feosol) 325 mg PO BIDM [facility] Stop: 05/15/18 16:59 Last Admin: 04/20/18 07:52 Dose: 325 mg Furosemide (Lasix) 20 mg PO QAM [facility] Stop: 05/19/18 09:44 Last Admin: 04/20/18 07:53 Dose: 20 mg Furosemide (Lasix) 20 mg PO HS [facility] Stop: 05/19/18 20:59 Last Admin: 04/19/18 20:25 Dose: 20 mg Heparin Sodium (Porcine) (Heparin Sodium (Porcine)) 5,000 units SQ Q12 [facility] Stop: 05/08/18 20:59 Last Admin: 04/20/18 07:54 Dose: Not Given Levothyroxine Sodium (Synthroid) 125 mcg PO DAILYBB [facility] Stop: 05/20/18 06:29 Last Admin: 04/20/18 04:51 Dose: 125 mcg Lisinopril (Zestril) 5 mg PO NOW ONE Stop: 04/20/18 11:18 Lisinopril (Zestril) 5 mg PO QAM [facility] Stop: 05/21/18 08:59 Metoprolol Succinate (Toprol Xl) 12.5 mg PO DAILY [facility] Stop: 05/17/18 08:59 Last Admin: 04/20/18 07:52 Dose: 12.5 mg Ranitidine HCl (Zantac) 300 mg PO DAILY [facility] Stop: 05/07/18 15:14 Last Admin: 04/20/18 07:53 Dose: 300 mg
[2018-04-20] MEDS ORDERED: LISINOPRIL 5 MG TAB PO ONE (11:30)
--- NOTE | 2018-04-20 12:57 | XRay Report ---
XR chest 2V routine CLINICAL HISTORY: follow up lung infiltrates COMPARISON STUDY: 04/18/2018 FINDINGS: The heart remains enlarged. There is slight decrease in the bilateral pleural effusions rig ht greater than left. There is mild asymmetric left lung interstitial edema. An 11 mm left upper lung zone nodule was not visualized on prior studies, and therefore may be artifactual.[ IMPRESSION: 1. Slight interval decrease in the size the bilateral pleural effusions right greater than left 2. Asymmetric left lung interstitial edema Electronically signed by: Ciaran Mac M.D. 04/20/2018 12:56 PM
[2018-04-20] MEDS ORDERED: POLYETHYLENE (MIRALAX) 17 GM PACK PO PRN (15:04)
--- NOTE | 2018-04-20 15:20 | Consultation Report ---
DATE OF CONSULTATION: 04/20/2018 REASON FOR CONSULTATION: Pleural effusions. HISTORY OF PRESENT ILLNESS: This is a 77-year-old female whom I visited within the hospital [facility] It should be noted that the patient was alert only to person, she was confused to time and place at the time of my exam, and therefore, that markedly limited the subjective data. I did review records and apparently the patient was admitted to the hospital on 04/07/2018 secondary to confusion as well as shortness of breath. There were no reported falls at that time. Patient did have an initial chest x-ray that showed concerns for pneumonia as well as a questionable mass of her chest. This was followed up with a CT scan of her chest, which did not reveal any lung mass, but she did have bilateral effusions, with the right being greater than the left, again no lung masses were noted. She had a CT scan of the head that was negative for acute intracranial findings. She did have an echocardiogram in this admission which revealed an ejection fraction of 25%-30%, noted aortic stenosis, severe mitral regurgitation. Patient was treated with antibiotics for a suspected pneumonia, and she was also treated for underlying cardiomyopathy with digoxin, JAMES inhibitor, beta blockers as well as diuretics. She has since been followed with serial chest x-rays, and the patient continues to have bilateral pleural effusions, and for this reason, we are asked to see the patient. I did visit with the patient at the bedside, and she appeared quite comfortable and did not offer any specific complaints although it is noteworthy to mention that the patient was again confused to time, and she could not tell me the day of the week, the month, or the year, and she was also confused to place, but she was alert to person. She did appear comfortable at the bedside. I did review additional diagnostics, and patient's most recent labs included a CBC from yesterday. Her white blood cell count was within the normal range, and her platelet count was also within normal range as were her hemoglobin and hematocrit. She had a chemistry profile today that showed sodium was 140, potassium 3.4, BUN and creatinine were 20 and 1.3. PAST MEDICAL HISTORY: Includes the followin. Cardiomyopathy. 2. Depression. 3. Chronic kidney disease stage III. 4. GERD. 5. Hypertension. 6. Hypothyroidism. 7. Anxiety. ALLERGIES: THERE ARE LISTED ALLERGIES TO BETA BLOCKERS AND ADHESIVES. MEDICATIONS: Her current medications include 1. Ranitidine 300 mg daily. 2. Subcutaneous heparin every 12 hours. 3. Iron 325 mg twice daily. 4. Aspirin 81 mg daily. 5. Digoxin 0.125 mg daily. 6. Toprol 12.5 mg daily. 7. Lasix 20 mg in the morning and 20 mg in the evening. 8. Levothyroxine 125 mcg daily. 9. Lisinopril 5 mg daily. SOCIAL HISTORY: The patient says that she did smoke in the past but could not quantify the amount. FAMILY HISTORY: The patient did not note any significant health problems that run in her family although her confusion did limit this aspect of her history. REVIEW OF SYSTEMS: As described above. PHYSICAL EXAMINATION: VITAL SIGNS: Patient is afebrile, temperature 36.8, her pulse oximetry is 91% on room air, blood pressure 105/59, pulse is 57 and regular, and respirations are 18 and nonlabored. GENERAL: She is alert only to person. HEENT: There are no signs of head trauma. Eyes: Her sclerae were nonicteric. She did wear corrective lenses. Ears: Auditory acuity is grossly intact. Nose: Nasal patency appeared intact. Her mouth has moist mucous membranes. NECK: Supple, without tracheal shift or stridor. CARDIOVASCULAR: Regular rate and rhythm. RESPIRATORY: Lungs revealed breath sounds were slightly decreased at the bases, with the right being more decreased than the left. She is not using accessory muscles to aid in respiration, and there is no wheezing noted. GASTROINTESTINAL: Her abdomen is soft and nontender. MUSCULOSKELETAL: Her extremities revealed approximately 1+ lower extremity edema bilaterally. NEUROLOGIC: Exam again revealed patient was confused to place and time, but she was alert to person. She could move all 4 extremities and follow simple commands. DIAGNOSTIC DATA: As described above. IMPRESSION: A 77-year-old female admitted with altered mental status and bilateral pleural effusions. The patient is quite comfortable at the bedside, and I do suspect that her pleural effusions may be on the basis of her underlying cardiomyopathy. I do not feel there is any urgent need for any thoracentesis or drainage procedure, but tomorrow, we could potentially do a bedside ultrasound to see if there is a large enough pleural effusion to perform a thoracentesis for diagnostic as well as therapeutic purposes. We will see the patient in the morning and consider this intervention, with further recommendations to follow.
[2018-04-20] MEDS: SENNA 8.6 MG TAB PO SCH (16:37)
[2018-04-20] MEDS: DIGOXIN 0.125 MG TAB PO SCH (16:39)
--- NOTE | 2018-04-20 19:03 | Hospitalist Progress Note ---
Date of Service April 20, 2018 Assessment & Plan (1) Altered mental status: Presented with progessive confusion for the past few months, worsening few weeks prior to admission No documented history of dementia Neurology and Psychiatry consulted Brain MRI: moderate atrophy felt to be underlying Dementia with possible metabolic encephalopathy from hypothyroidism, CHF hypothyroidism and CHF managed as noted below overall, patient's mental status seems to be about the same had episodes of agitation/worsening confusion in the evenings on this admission was given haldol previously during this hospitalization for behavior which made patient very sedated and lethargic since being off haldol patient is more alert and interactive with medical staff (2) Pleural effusion: initial CXR showed possible pneumonia vs. mass CT chest ordered: 1. Moderate right and small left pleural effusions with subtotal right lower lobe atelectasis which accounts for the abnormality on prior chest radiograph. 2. Marked cardiomegaly. Trace pericardial effusion. 3. Moderate emphysema. Pneumonia ruled out procalcitonin normal, afebrile, no leukocytosis Dr. Ellington from Pulmonary consulted, s/p Thoracentesis on 04/09/18 of right lung draining 1 L Cytology Studies: - BENIGN MESOTHELIAL CELLS AND SCATTERED LYMPHOCYTES - NEGATIVE FOR MALIGNANCY likely transudative secondary to CHF/Cardiomyopathy had then been on hospital regimen of Lasix 20mg twice a week- fri and fri. additional Lasix given on 04/16/18 as CXR with mild interstitial pulmonary edema noted 04/18/18 she had already gotten oral Lasix 20 mg today. CXR shows more congestion , and given 20 mg IV Lasix as blood pressure generally low normotensive 04/19/18 at this time will try to have patient consistent on scheduled Lasix as 20 mg oral BID to avoid hypotension 04/20/18 the right lung velásquez on chest X ray appears to have increased but patient's oxygen requirements appear to be less, have consulted CT surgery in case there are effusions that are more amenable to draining as right pleural effusions have not improved with lasix medications (3) Cardiomyopathy: with Atrial Flutter new diagnosis acute systolic CHF Echo: severely reduced LV systolic function with moderate to severe global hypokinesia ef 25-30% reduced RV systolic function severe mitral regurgitation, severe tricuspid regurgitaion, severe biatrial enlargement 04/20/17 continue with the digoxin and metoprolol XL as per cardiology, heart rate better today and diltiazem TID have been stopped (4) Atypical atrial flutter: new diagnosis on this admission 04/16/18 switching from Metoprolol 12.5 mg BID to Metoprolol succcinate 12.5 mg daily with addition of digoxin to control heart rate and avoid hypotension 04/17/18 have added diltiazem 30 mg as TID as recommended by cardiology Dr. Bell on top of current metoprolol succinate 12.5 mg and digoxin 04/18/[address] Heard from cardiology whether any other additional medication for rate control has heart rates still in atrial fibrillation to 110 bpm but he advises to continue current beta franny, digoxin , and diltiazem for now due to low normotensive blood pressures 04/19/18 will continue metoprolol succinate 12.5 mg daily with daily digoxin and Diltiazem 30 mg TID with scheduled oral 20 mg BID Lasix 04/20/17 continue with the digoxin and metoprolol XL as per cardiology, heart rate better today and diltiazem TID have been stopped CHADsVASC at least 4 anticoagulation deferred at this time due to fall risk and iron deficiency anemia has instead been on ASA 81mg po for stroke prevention (5) Hypothyroidism: at home prescribed with 112 mcg of thyroxine, with inconsistent intake per family -found to have on this admission high TSH of 27 with low t4/t3 -previous hospitalist on this admission Discussed with endocrinology in [facility], recommend 2-day course of IV levothyroxine at 88 mcg Then resume levothyroxine 112 mcg daily which was completed -then resumed on Levothyroxine 112mcg daily orally -repeat TSH is 18.4 however the free T4 is still low as 0.74 -increase Levoythyroxine 125 mcg daily starting on 04/20/18 will need a repeat TSH/Free T4 in 4 to 5 weeks (6) Delirium: was given haldol previously during this hospitalization for behavior which made patient very sedated and lethargic since being off haldol patient is more alert and interactive with medical staff however still has periods of confusion and overall has poor understanding of current medical health (7) Acute kidney injury superimposed on chronic kidney disease: acute kidney injury resolved monitor renal function while on Lasix (8) Hypertension: blood pressure has been generally low normotensive without home dose lisinopril avoid lisinopril at this time adjusting heart rate and rhythm control medications as above Also has history of problem with swallowing - Speech eval recommended :soft, bites sized diet, aspiration precautions (9) Major depressive disorder: avoid further haldol at this time (10) Discharge planning issues: [facility] has obtained authorization from pt's insurance, [employer], when medically cleared, patient will likely transition to [facility] family members [phone], son [phone] will need follow up with PCP, Cardiology Dr. Calix /Ray, Neurology Dr. Vaughan (11) DVT prophylaxis: SCDs, heparin Subjective Recent trends that at rest with sleep patient's heart rate is controlled and under 100 beats per minute although there are times when awake she is back to heart rate of 110 and is still in atrial fibrillation Patient's oxygen requirements appear to be less today, and generally needed 1 liter of oxygen/min at rest and seems to be doing ok while on room air at times. she is calm and cooperative with medical staff but sometimes is confused about where she is Patient reports feeling unwell but still cannot clarify what this feeling means Have discussed with patient's and patient about allowing permission if needed for thoracentesis versus chest tube placement and they allow for the evaluation; CT surgery was consulted Physical Exam 2 Vital Signs (Past 24 Hours): Last Vital Signs Temp 36.3 C L 04/20/18 16:22 Pulse 72 04/20/18 16:39 Resp 20 04/20/18 16:22 BP 90/58 L 04/20/18 16:22 Pulse Ox 91 04/20/18 11:52 Constitutional: WD/WN, vitals as above Eyes: PERRL, conjunctivae normal, anicteric sclerae EOM intact bilaterally ENMT: external ear and nose normal, oropharynx normal Neck: normal visual inspection and trachea midline Respiratory: normal respiratory effort Auscultation: + diminished lung sounds (diminished sounds of the bases of the lungs) Cardiovascular: Rate/Rhythm: regular rhythm (atrial fibrillation) and + tachycardic (atrial fibrillation) Gastrointestinal (Abdomen): normal bowel sounds, soft, nontender, no hepatosplenomegaly Musculoskeletal: Head/Neck/Chest: normocephalic and head atraumatic Neurologic: PERRL, EOMI, accommodation nl, no face palsy, no dysarthria Psychiatric: Orientation: alert _ (1) Altered mental status Altered mental status type: unspecified Coma depth: Coma timing: Qualified Code(s): R41.82 - Altered mental status, unspecified
[2018-04-20] MEDS: DOCUSATE SODIUM 100 MG CAP PO SCH (21:19)
[2018-04-21] MEDS: LEVOTHYROXINE SODIUM 125 MCG TABLET PO SCH (06:15)
[2018-04-21] MEDS: ASPIRIN 81 MG ECTAB PO SCH (08:35)
[2018-04-21] MEDS: FUROSEMIDE 20 MG TAB PO SCH (08:36)
[2018-04-21] MEDS: FERROUS SULFATE 325 MG TAB PO SCH (08:37)
[2018-04-21] MEDS: DOCUSATE SODIUM 100 MG CAP PO SCH (08:37)
[2018-04-21] MEDS: METOPROLOL SUCC 25MG EXT REL TAB PO SCH (08:38)
[2018-04-21] MEDS: HEPARIN SOD 5,000 UNIT/0.5 ML VIAL SQ SCH (08:40)
[2018-04-21] MEDS: SENNA 8.6 MG TAB PO SCH (08:47)
[2018-04-21] MEDS ORDERED: LISINOPRIL 5 MG TAB PO SCH (09:00)
[2018-04-21] MEDS ORDERED: LEVALBUTEROL HCL 1.25 MG/3 ML NEB NEB STA (11:35)
--- NOTE | 2018-04-21 12:52 | Progress Note ---
DATE: 04/21/2018 HISTORY OF PRESENT ILLNESS: The patient is a 77-year-old patient with bilateral pleural effusions. She underwent a thoracentesis and it turns out this pleural effusion is a transudate. She was on no oxygen before or after the tap. She has dementia. She is sedentary. She is on room air with good saturations when I evaluated her this morning. I discussed this case with Dr. Mal Russo. I do not feel that a thoracentesis or a PleurX is indicated in this patient. This may change with time. The fact that she did not really respond to the thoracentesis and my feeling is we are probably dealing with a transudative effusion due to congestive heart failure, lessens my enthusiasm from placing a PleurX. At this point, I would hold off doing this and allow her to be placed in an extended care facility. We will be glad to see her back should she develop a problem anytime. I discussed this with Dr. Russo.
--- NOTE | 2018-04-21 14:54 | Hospitalist Progress Note ---
Date of Service April 21, 2018 Assessment & Plan (1) Altered mental status: Presented with progessive confusion for the past few months, worsening few weeks prior to admission No documented history of dementia Neurology and Psychiatry consulted Brain MRI: moderate atrophy felt to be underlying Dementia with possible metabolic encephalopathy from hypothyroidism, CHF hypothyroidism and CHF managed as noted below had episodes of agitation/worsening confusion in the evenings on this admission was given haldol previously during this hospitalization for behavior which made patient very sedated and lethargic since being off haldol patient is more alert and interactive with medical staff Has confusion secondary to hypothyroidism or new onset dementia follow up 05/19/2018 10:40 AM Provider Lyubov Yeboah PA-C Department Neurology [facility] (2) Pleural effusion: initial CXR showed possible pneumonia vs. mass CT chest ordered: 1. Moderate right and small left pleural effusions with subtotal right lower lobe atelectasis which accounts for the abnormality on prior chest radiograph. 2. Marked cardiomegaly. Trace pericardial effusion. 3. Moderate emphysema. Pneumonia ruled out procalcitonin normal, afebrile, no leukocytosis Dr. Ellington from Pulmonary consulted, s/p Thoracentesis on 04/09/18 of right lung draining 1 L Cytology Studies: - BENIGN MESOTHELIAL CELLS AND SCATTERED LYMPHOCYTES - NEGATIVE FOR MALIGNANCY likely transudative secondary to CHF/Cardiomyopathy had then been on hospital regimen of Lasix 20mg twice a week- fri and fri. additional Lasix given on 04/16/18 as CXR with mild interstitial pulmonary edema noted 04/18/18 she had already gotten oral Lasix 20 mg today. CXR shows more congestion , and given 20 mg IV Lasix as blood pressure generally low normotensive 04/19/18 at this time will try to have patient consistent on scheduled Lasix as 20 mg oral BID to avoid hypotension 04/20/18 the right lung velásquez on chest X ray appears to have increased but patient's oxygen requirements appear to be less, have consulted CT surgery 04/21/[address] surgery and no need for thoracentesis or chest tube placement at this time; will continue Lasix 20 mg daily instead to help reduce pleural effusion and hypoxia During this hospital stay, patient has acute respiratory failure with hypoxia and has at most times required oxygen with at rest and with activity. Can breath and function on room air but then when pulse oximetry is checked she is often less than 90% Patient will need to be on oxygen at rest and with activities when at [facility] (3) Cardiomyopathy: with Atrial Flutter new diagnosis acute systolic CHF Echo: severely reduced LV systolic function with moderate to severe global hypokinesia ef 25-30% reduced RV systolic function severe mitral regurgitation, severe tricuspid regurgitaion, severe biatrial enlargement 04/20/17 continue with the digoxin and metoprolol XL as per cardiology, heart rate better today and diltiazem TID have been stopped 04/21/18; discharge with digoxin, metoprolol and lisinopril and furosemide Scheduling department will call [facility] to set up the cardiology follow up appointment at [facility] in [facility] (4) Atypical atrial flutter: new diagnosis on this admission as atypical atrial flutter / atrial fibrillation with rapid ventricular response 04/16/18 switching from Metoprolol 12.5 mg BID to Metoprolol succcinate 12.5 mg daily with addition of digoxin to control heart rate and avoid hypotension 04/17/18 have added diltiazem 30 mg as TID as recommended by cardiology Dr. Bell on top of current metoprolol succinate 12.5 mg and digoxin 04/18/[address] Heard from cardiology whether any other additional medication for rate control has heart rates still in atrial fibrillation to 110 bpm but he advises to continue current beta franny, digoxin , and diltiazem for now due to low normotensive blood pressures 04/19/18 will continue metoprolol succinate 12.5 mg daily with daily digoxin and Diltiazem 30 mg TID with scheduled oral 20 mg BID Lasix 04/20/17 continue with the digoxin and metoprolol XL as per cardiology, heart rate better today and diltiazem TID have been stopped CHADsVASC at least 4 anticoagulation deferred at this time due to fall risk and iron deficiency anemia has instead been on ASA 81mg po for stroke prevention (5) Hypothyroidism: at home prescribed with 112 mcg of thyroxine, with inconsistent intake per family -found to have on this admission high TSH of 27 with low t4/t3 -previous hospitalist on this admission Discussed with endocrinology in [facility], recommend 2-day course of IV levothyroxine at 88 mcg Then resume levothyroxine 112 mcg daily which was completed -then resumed on Levothyroxine 112mcg daily orally -repeat TSH is 18.4 however the free T4 is still low as 0.74 -increase Levoythyroxine 125 mcg daily starting on 04/20/18 will need a repeat TSH/Free T4 in 4 to 5 weeks (6) Delirium: was given haldol previously during this hospitalization for behavior which made patient very sedated and lethargic since being off haldol patient is more alert and interactive with medical staff Has confusion secondary to hypothyroidism or new onset dementia (7) Acute kidney injury superimposed on chronic kidney disease: acute kidney injury resolved monitor renal function while on Lasix as outpatient (8) Hypertension: blood pressure controlled Also has history of problem with swallowing - Speech eval recommended :soft, bites sized diet, aspiration precautions (9) Major depressive disorder: avoid further haldol at this time (10) Discharge planning issues: Discharge to [facility] Patient will need to be on oxygen at rest and with activities. Has confusion secondary to hypothyroidism or new onset dementia Sometimes patient's heart rate does increase to 110 beats per minute given current state of health when patient sees a primary care doctor, will need repeat labs for electrolytes and digoxin level will need a repeat TSH/Free T4 in 4 to 5 weeks will need follow ups to the following appointments 04/24/2018 1:20 PM Provider Raman Grey DO Department Family Practice [facility] 05/19/2018 10:40 AM Provider Lyubov Yeboah PA-C Department Neurology [facility] Scheduling department will call [facility] to set up the cardiology follow up appointment at [facility] in [facility] Discharge Diagnosis Pleural effusions, acute respiratory failure with hypoxia, atrial fibrillation with rapid ventricular response, Hypothyrodism / acute confusion which is now baseline confusion / possible dementia family members [phone], son [phone] (11) DVT prophylaxis: SCDs, heparin Subjective Patient Physical Exam 2 Vital Signs (Past 24 Hours): Last Vital Signs Temp 36.7 C 04/21/18 12:19 Pulse 110 H 04/21/18 12:19 Resp 18 04/21/18 12:19 BP 124/88 04/21/18 12:19 Pulse Ox 94 04/21/18 12:19 Constitutional: WD/WN, vitals as above Eyes: PERRL, conjunctivae normal, anicteric sclerae EOM intact bilaterally ENMT: external ear and nose normal, oropharynx normal Neck: normal visual inspection and trachea midline Respiratory: normal respiratory effort Auscultation: + diminished lung sounds (diminished sounds of the bases of the lungs) Cardiovascular: Rate/Rhythm: regular rhythm (atrial fibrillation) and + tachycardic (atrial fibrillation) Gastrointestinal (Abdomen): normal bowel sounds, soft, nontender, no hepatosplenomegaly Musculoskeletal: Head/Neck/Chest: normocephalic and head atraumatic Neurologic: PERRL, EOMI, accommodation nl, no face palsy, no dysarthria Psychiatric: Orientation: alert _ (1) Altered mental status Altered mental status type: unspecified Coma depth: Coma timing: Qualified Code(s): R41.82 - Altered mental status, unspecified
--- NOTE | 2018-04-21 15:09 | Discharge Summary ---
Date of Service April 21, 2018 Admission HPI Per Admitting Provider Betsy Sumner is a 77 year old female with a PMH of HTN, Hypothyroidism, CKD stage 3 and reflux that was brought to the hospital on 04/07/2018 by her due to worsening confusion over the past 2 months. Upon presentation in the ED she was confused but otherwise without any other complaints. Her vital signs were significant for a tachycardia with rates in the low 100's but other vitals were unremarkable. Her EKG showed atrial flutter with RVR. Labs were significant for a tsh of 27, creatinine of 1.44 and a MCV of 77. She had a CXR which showed a R infrahilar opacity w/ moderate pleural effusions. The patient was then admitted to telemetry for further workup and monitoring. So far while in the hospital further lab workup has shown that the patient has untreated hypothyroidism and an iron deficiency anemia. She had an echo which showed an EF of 25-30% with severe global hypokinesis. She had a Chest CT which showed emphysema and cardiomegaly and a MRI of her brain showed moderate atrophy. She has had a normal B12, folate, glucose, lft's and currenly has a an RPR and thiamine level ordered. Yesterday evening while in the hospital the patient was noted to be combative and agitated with nursing and therefore was given 2 dose of haldol. We were therefore consulted today by the primary team for further evaluation of the patient. Patient was seen at the bedside today along side her . The patient was orientated to person but not place or time. The nurse liason did do the minicog with the patient and she scored a 0. The was spoke to by myself and the nurse liason on separate occasions. He notes that the patients behaviour has been changing since December. 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 She has also been refusing to taker medications. He notes that for the past 5-6 months she has not been wanting him to leave there home and she gets very upset when he wants to leave to get groceries. The patient has also been refusing to go and see the doctor and hasn't gone to see her PCP in over 5 years. He notes that she sits in front of the television for most of the day and she doesn't communicate very much. The also notes at night she has said she hears people coming into the home but he says that he doesn't hear anyone in the home. Her notes that the patient was an active mother and was always involved in her children's day to day tasks. The following history is retrieved from the patient; however, it is difficulty to elucidate as to whether or not this information is completely accurate considering her current mental status. Most of these answers were retrieved asking close ended questions. The patient notes that she has had periods of sadness in her life, but has never wanted to commit suicide. She has never been on psychiatric medication and has never seen a psychiatrist. She has never been hospitalized for psychiatric illness. She has no significant family history of psychiatric illness. Currently she notes that her mood is ok and she has no thoughts of wanting to hurt herself. She isn't particularly anxious about anything and denies any regular panic symptoms. She personally denies any hallucinations. Currently she is anxious about wanting to go home. She was a smoker in the past, and would occasionally drink alcohol but never did any illicit drugs. Admission Exam Per Admitting Provider Physical Exam: Lying in bed comfortably Constitutional: WD/WN, vitals as above (No apparent distress at rest) + thin (Almost cachectic) Eyes: PERRL, conjunctivae normal, anicteric sclerae ENMT: external ear and nose normal, oropharynx normal Respiratory: normal respiratory effort and + cough (Occasional cough) Auscultation: + diminished lung sounds (Bilaterally at the base with probable bronchial sound right base) Cardiovascular: Rate/Rhythm: regular rate and regular rhythm Heart Sounds: normal S1 and normal S2 Gastrointestinal (Abdomen): Inspection/Auscultation: abdomen normal to inspection and normal bowel sounds Percussion/Palpation: abdomen soft Musculoskeletal: No acute arthritis Neurologic: awake and + confused Generalized weakness Principal Diagnosis Pleural effusions, acute respiratory failure with hypoxia, atrial fibrillation with rapid ventricular response, Hypothyrodism / acute confusion which is now baseline confusion / possible dementia Discharge Exam Constitutional WD/WN, vitals as above Eyes PERRL, conjunctivae normal, anicteric sclerae EOM intact bilaterally ENMT external ear and nose normal, oropharynx normal Neck normal visual inspection and trachea midline Respiratory normal respiratory effort Auscultation: + diminished lung sounds (diminished sounds of the bases of the lungs) Cardiovascular Rate/Rhythm: regular rhythm (atrial fibrillation) and + tachycardic (atrial fibrillation) Gastrointestinal (Abdomen) normal bowel sounds, soft, nontender, no hepatosplenomegaly Musculoskeletal Head/Neck/Chest: normocephalic and head atraumatic Neurologic PERRL, EOMI, accommodation nl, no face palsy, no dysarthria Psychiatric Orientation: alert Discharge Data Allergies Allergy/AdvReac Type Severity Reaction Status Date / Time adhesive Allergy Unknown allergy to Verified 04/07/18 11:11 tape, bandaids Beta-Blockers AdvReac Severe low heart Verified 04/07/18 11:11 (Beta-Adrenergic Bloc rate Consultations 04/07/18 12:17 ED Decision to Admit Stat 04/08/18 08:00 Consult Cardiology Routine 04/08/18 09:32 Consult Neurology Routine 04/09/18 10:25 Consult Pulmonology Routine 04/09/18 11:41 Consult Psychiatry Routine 04/12/18 12:44 Consult Case Management - Discharge Planning Routine 04/20/18 12:16 Consult Thoracic Surgery Routine Ordered Studies 04/07/18 10:02 CT head/brain wo con Stat 04/08/18 09:32 CT chest wo con Routine 04/08/18 16:24 MR brain wo con Routine Hospital Course (1) Altered mental status: Presented with progessive confusion for the past few months, worsening few weeks prior to admission No documented history of dementia Neurology and Psychiatry consulted Brain MRI: moderate atrophy felt to be underlying Dementia with possible metabolic encephalopathy from hypothyroidism, CHF hypothyroidism and CHF managed as noted below had episodes of agitation/worsening confusion in the evenings on this admission was given haldol previously during this hospitalization for behavior which made patient very sedated and lethargic since being off haldol patient is more alert and interactive with medical staff Has confusion secondary to hypothyroidism or new onset dementia follow up 05/19/2018 10:40 AM Provider Lyubov Yeboah PA-C Department Neurology [facility] (2) Pleural effusion: initial CXR showed possible pneumonia vs. mass CT chest ordered: 1. Moderate right and small left pleural effusions with subtotal right lower lobe atelectasis which accounts for the abnormality on prior chest radiograph. 2. Marked cardiomegaly. Trace pericardial effusion. 3. Moderate emphysema. Pneumonia ruled out procalcitonin normal, afebrile, no leukocytosis Dr. Ellington from Pulmonary consulted, s/p Thoracentesis on 04/09/18 of right lung draining 1 L Cytology Studies: - BENIGN MESOTHELIAL CELLS AND SCATTERED LYMPHOCYTES - NEGATIVE FOR MALIGNANCY likely transudative secondary to CHF/Cardiomyopathy had then been on hospital regimen of Lasix 20mg twice a week- fri and sat. additional Lasix given on 04/16/18 as CXR with mild interstitial pulmonary edema noted 04/18/18 she had already gotten oral Lasix 20 mg today. CXR shows more congestion , and given 20 mg IV Lasix as blood pressure generally low normotensive 04/19/18 at this time will try to have patient consistent on scheduled Lasix as 20 mg oral BID to avoid hypotension 04/20/18 the right lung velásquez on chest X ray appears to have increased but patient's oxygen requirements appear to be less, have consulted CT surgery 04/21/[address] surgery and no need for thoracentesis or chest tube placement at this time; will continue Lasix 20 mg daily instead to help reduce pleural effusion and hypoxia During this hospital stay, patient has acute respiratory failure with hypoxia and has at most times required oxygen with at rest and with activity. Can breath and function on room air but then when pulse oximetry is checked she is often less than 90% Patient will need to be on oxygen at rest and with activities when at [facility] (3) Cardiomyopathy: with Atrial Flutter new diagnosis acute systolic CHF Echo: severely reduced LV systolic function with moderate to severe global hypokinesia ef 25-30% reduced RV systolic function severe mitral regurgitation, severe tricuspid regurgitaion, severe biatrial enlargement 04/20/17 continue with the digoxin and metoprolol XL as per cardiology, heart rate better today and diltiazem TID have been stopped 04/21/18; discharge with digoxin, metoprolol and lisinopril and furosemide Scheduling department will call [facility] to set up the cardiology follow up appointment at [facility] in [facility] (4) Atypical atrial flutter: new diagnosis on this admission as atypical atrial flutter / atrial fibrillation with rapid ventricular response 04/16/18 switching from Metoprolol 12.5 mg BID to Metoprolol succcinate 12.5 mg daily with addition of digoxin to control heart rate and avoid hypotension 04/17/18 have added diltiazem 30 mg as TID as recommended by cardiology Dr. Bell on top of current metoprolol succinate 12.5 mg and digoxin 04/18/[address] Heard from cardiology whether any other additional medication for rate control has heart rates still in atrial fibrillation to 110 bpm but he advises to continue current beta franny, digoxin , and diltiazem for now due to low normotensive blood pressures 04/19/18 will continue metoprolol succinate 12.5 mg daily with daily digoxin and Diltiazem 30 mg TID with scheduled oral 20 mg BID Lasix 04/20/17 continue with the digoxin and metoprolol XL as per cardiology, heart rate better today and diltiazem TID have been stopped CHADsVASC at least 4 anticoagulation deferred at this time due to fall risk and iron deficiency anemia has instead been on ASA 81mg po for stroke prevention (5) Hypothyroidism: at home prescribed with 112 mcg of thyroxine, with inconsistent intake per family -found to have on this admission high TSH of 27 with low t4/t3 -previous hospitalist on this admission Discussed with endocrinology in [facility], recommend 2-day course of IV levothyroxine at 88 mcg Then resume levothyroxine 112 mcg daily which was completed -then resumed on Levothyroxine 112mcg daily orally -repeat TSH is 18.4 however the free T4 is still low as 0.74 -increase Levoythyroxine 125 mcg daily starting on 04/20/18 will need a repeat TSH/Free T4 in 4 to 5 weeks (6) Delirium: was given haldol previously during this hospitalization for behavior which made patient very sedated and lethargic since being off haldol patient is more alert and interactive with medical staff Has confusion secondary to hypothyroidism or new onset dementia (7) Acute kidney injury superimposed on chronic kidney disease: acute kidney injury resolved monitor renal function while on Lasix as outpatient (8) Hypertension: blood pressure controlled Also has history of problem with swallowing - Speech eval recommended :soft, bites sized diet, aspiration precautions (9) Major depressive disorder: avoid further haldol at this time (10) Discharge planning issues: Discharge to [facility] Patient will need to be on oxygen at rest and with activities. Has confusion secondary to hypothyroidism or new onset dementia Sometimes patient's heart rate does increase to 110 beats per minute given current state of health when patient sees a primary care doctor, will need repeat labs for electrolytes and digoxin level will need a repeat TSH/Free T4 in 4 to 5 weeks will need follow ups to the following appointments 04/24/2018 1:20 PM Provider DO Flor Hitchcock [facility] 05/19/2018 10:40 AM Provider Lyubov Yeboah PA-C Department Neurology [facility] Scheduling department will call [facility] to set up the cardiology follow up appointment at [facility] Discharge Diagnosis Pleural effusions, acute respiratory failure with hypoxia, atrial fibrillation with rapid ventricular response, Hypothyrodism / acute confusion which is now baseline confusion / possible dementia family members [phone], son [phone] (11) DVT prophylaxis: SCDs, heparin Total Time Total Time Spent Total Time Spent (In Minutes): 40 minutes Total Time Includes: Examination of the Patient, Discharge Planning and Medication Reconciliation Discharge Plan Discharge Items Patient Disposition: Transfer Intermediate Fac Reason For Visit: ACUTE CONFUSION, POSSIBLE PNEUMONIA W LUNG MASS, Discharge Diagnosis: Pleural effusions, acute respiratory failure with hypoxia , atrial fibrillation with rapid ventricular response, Hypothyrodism / acute confusion which is now baseline confusion / possible dementia Condition: Fair Discharge Goals: Improve disease control Activity: Resume your previous activity Non-emergency contact: Primary Care Provider Call non-emergency contact if: you have any medication questions Diet: Low Sodium (2gm) Diet Texture: Dental soft (bite-sized) Addtl Provider Instructions: Discharge to [facility] Patient will need to be on oxygen at rest and with activities. Has confusion secondary to hypothyroidism or new onset dementia Sometimes patient's heart rate does increase to 110 beats per minute given current state of health when patient sees a primary care doctor, will need repeat labs for electrolytes and digoxin level will need a repeat TSH/Free T4 in 4 to 5 weeks will need follow ups to the following appointments 04/24/2018 1:20 PM Provider DO Flor Hitchcock [facility] 05/19/2018 10:40 AM Provider Lyubov Yeboah PA-C Department Neurology [facility] Scheduling department will call [facility] to set up the cardiology follow up appointment at [facility] in [facility] CHF instructions Call 911 and go to the Emergency Room if: * You have tightness or pain in your chest that does not go away with rest or Nitroglycerin * You are very short of breath even with rest Call your doctor if any of the following symptoms or problems start or get worse: * Shortness of breath or difficulty breathing * Wake up at night short of breath * Chest pain * Cough * Swelling of your hands, fee, or legs * More fatigued or tired with your normal activity * Palpitations - sudden fast heart beats WEIGHT * Weigh yourself every morning after using the bathroom. * Use the same scale. * Wear the same amount of clothing. * Write your weight down on your chart. * Call your doctor if you gain more than 2-3 pounds in 1-2 days. MEDICATIONS * Use this discharge instruction sheet for instructions. * Take your medications at the time your doctor ordered. * Do not skip a dose of your medicines. * If you miss a dose of medicine, take as soon as possible, but DO NOT DOUBLE A DOSE. * Read your medicine information when you get home. * Know all of the side effects of your medicine. * Call your doctor's office if you have any side effects. * Be sure all of your doctors know what medicine and herbs you take (including cold, flu, and herbal medicine). * Pain Medicine: If you do not get relief from your pain, please call your doctor for help. Take the following with you to your follow-up doctor appointments: * Weight Chart * Medication List * List of questions Do not drink excessive alcohol, beer or wine. Prescriptions: New sennosides [Senokot] 8.6 mg Tablet 8.6 mg PO QAM 30 Days Qty: 30 RF: 0 levothyroxine [Synthroid] 125 mcg Tablet 125 mcg PO DAILYBB 30 Days Qty: 30 RF: 0 docusate sodium 100 mg Capsule 100 mg PO BID 30 Days Qty: 60 RF: 0 ferrous sulfate 325 mg (65 mg iron) Tablet,Delayed Release (Dr/Ec) 325 mg PO DAILY 30 Days Qty: 30 RF: 0 aspirin [Ecotrin Low Strength] 81 mg Tablet,Delayed Release (Dr/Ec) 81 mg PO QAM 30 Days Qty: 30 RF: 0 lisinopril [Zestril] 5 mg Tablet 5 mg PO QAM 30 Days Qty: 30 RF: 0 digoxin 125 mcg Tablet 0.125 mg PO DAILY@1600 30 Days Qty: 30 RF: 0 furosemide 20 mg Tablet 20 mg PO QAM 30 Days Qty: 30 RF: 0 metoprolol succinate 25 mg Tablet Extended Release 24 Hr 12.5 mg PO DAILY 30 Days Qty: 15 RF: 0 Continue ranitidine HCl 150 mg Tablet 300 mg PO DAILY RF: 0 Discontinued lisinopril 40 mg Tablet 40 mg PO DAILY RF: 0 levothyroxine 112 mcg Tablet 112 mcg PO DAILY RF: 0 Stand-Alone Forms: [facility] Discharge Orders: Discharge Order (Routine); Ordered 04/21/18 Ordered By: Mal Russo Skilled Items Patient informed of condition?: Yes DNR: No Discharge Level of Care: Skilled Communicable Disease: No Discharge Prognosis: Stable Admission Data Admit Date/Time: 04/07/18 13:03 Attending Provider: Mal Russo Admit Provider: Merced Ramirez Primary Care Provider: Shabbir Amaya Other Providers: Merced Ramirez ; Slim Bell ; Carlos Mcleod ; Anselmo Calix ; Jett Aburto ; Samuel Heard ; Gildardo Masterson ; Heide Lofton ; Lyubov Torrez ; Lyubov Yeboah ; Shabbir Vaugahn ; Lyubov Edwards ; Padma Neal ; Siddhartha Flaherty ; Stacey Feng ; Magdy Clinton ; Addi Feng ; Beronica Perez ; Duran Lopez ; Adilene Delgadillo ; Gee Borden ; Maria Muñoz ; Migue Beaulieu ; Zelalem Lange ; Arielle Ellington ; Slim Calix ; Facundo Lemon ; Tati Johnson ; Yannick Mckoy ; Maryann Larson ; Tito Bates ; Adam Spann ; Brennan Gutierrez ; Rosa Elena Llanos ; Slim Kraft ; Zuly Casillas ; Kyra Alvarado ; Ronnie Scherer ; Corina Morris ; Samuel Li I ; Kalie Lau ; Patricia Freitas ; Treva Burgos ; Lio Shrestha ; Gee Au. Service: Telemetry
== END 2018-04-21 16:15 | DRG 643 ==
LOC: ED 09:46 → SUATTDRO 13:03 → 2S 13:03 → 2W 04-11 23:09

== ENCOUNTER 2018-04-29 16:26 | Inpatient (IN) ==
[2018-04-29] MEDS ORDERED: LORazepam 2 MG/ML VIAL (IM USE) IM STA (17:19)
[2018-04-29] MEDS ORDERED: SODIUM CHLORIDE 0.9% 1000ML 1,000 ML IV SCH (17:30)
--- NOTE | 2018-04-29 17:57 | XRay Report ---
SINGLE VIEW PELVIS CLINICAL HISTORY: Fall. FINDINGS: 2 AP pelvic radiographs are compared to study dated 10/27/2009. The skeletal structures are osteopenic. There is no evidence of fracture. Bilateral bipolar hip arthroplasties are in place. No p eriprosthetic lucency is identified. Sclerotic change is noted in the sacroiliac joints. Lumbosacral spondylosis is partially imaged. The overlying soft tissues are within normal limits. No bowel obstru ction is seen. IMPRESSION: 1. There is no radiographic evidence of fracture. 2. Bilateral hip arthroplasties are in place. Electronically signed by: Duran Rabago M.D. 04/29/2018 5:56 PM
--- NOTE | 2018-04-29 18:01 | XRay Report ---
SINGLE VIEW CHEST CLINICAL HISTORY: Fall. FINDINGS: An AP, portable, semierect chest radiograph is compared to study dated 04/20/2018 and correl ated with chest CT dated 04/08/2018. The examination is degraded by portable technique and patient rota tion. The heart is markedly enlarged and there is atherosclerotic calcification of the thoracic aort a. There is pulmonary vascular congestion and interstitial edema. Emphysema and chronic interstitial thickening are similar to previous. There are layering pleural effusions with bibasilar consolidation . Asymmetric consolidation is also seen in the left perihilar region. No pneumothorax is seen. The sk eletal structures are osteopenic. The bony thorax is grossly intact. IMPRESSION: 1. Cardiomegaly with evidence of congestive failure and interstitial edema. 2. There are layering pleural effusions with bibasilar consolidation. This likely represents atelecta sis. Correlate clinically for evidence of superimposed pneumonia. 3. Asymmetric airspace consolidation is seen in the left perihilar region. This is new from previous and could represent asymmetric pulmonary edema and/or superimposed pneumonia. Again, clinical correla tion will be required. Electronically signed by: Duran Rabago M.D. 04/29/2018 6:00 PM
[2018-04-29 18:04] LABS: Influenza A virus by PCR Neg for Influ A (Neg); Influenza B virus by PCR Neg for Influ B (Neg)
[2018-04-29 18:30] LABS: Base Excess VBG 5.2 mEq/L; HCO3 VBG 30 mmol/L; PCO2 VBG 46 mmHg (38-50); PO2 VBG 27 mmHg; pH VBG 7.43 (7.36-7.41)
--- NOTE | 2018-04-29 18:30 | CT Scan Report ---
CT SCAN OF THE BRAIN WITHOUT IV CONTRAST CLINICAL HISTORY: Fall. COMPARISON STUDY: CT of the brain dated 04/07/2018. TECHNIQUE: Unenhanced axial CT scan of the brain is performed from the vertex to the skull base. A do se lowering technique was utilized adhering to the principles of ALARA. CT DOSE: 614.27 mGy.cm FINDINGS: Brain parenchyma: There are age-related involutional changes noting mild to moderate subcortical and periventricular microangiopathic change. There is no hemorrhage, mass effect, or evidence of acute t erritorial ischemia by CT criteria. Harrington-white matter differentiation is preserved. No extra-axial fl uid collection is seen. Ventricles, sulci, cisterns: Prominent secondary to involutional change. Intracranial vasculature: There is atherosclerotic calcification of the cavernous carotid and vertebr al arteries. Calvarium: The skeletal structures are osteopenic. No depressed calvarial fracture is seen. Sinuses and mastoids: The visualized paranasal sinuses are clear. The mastoid air cells are well pneu matized. Orbits: The bony orbits are grossly intact. IMPRESSION: There is no hemorrhage, mass effect, or evidence of acute territorial ischemia by CT vipul skaggs. Electronically signed by: Duran Rabago M.D. 04/29/2018 6:29 PM
[2018-04-29 18:33] LABS: INR 1.3 (0.9-1.1); Partial Thromboplastin Ratio 1.5; Partial Thromboplastin Time 38.7 Seconds (21.0-31.0); Prothrombin Time 12.8 Seconds (9.0-12.0)
[2018-04-29 18:38] LABS: Oxygen Saturation VBG < 60.0 %
--- NOTE | 2018-04-29 18:38 | CT Scan Report ---
CT SCAN OF THE ABDOMEN AND PELVIS WITHOUT IV CONTRAST CLINICAL HISTORY: Fall. COMPARISON STUDY: Pelvic x-ray dated 04/29/2018. TECHNIQUE: CT scan of the abdomen and pelvis is performed from the lung bases to the proximal femora. Images are reviewed in the axial, sagittal, and coronal planes. IV contrast was not administered for this examination as per the referring clinician. Note that the examination was performed in signific antly suboptimal fashion without oral and IV contrast. Evaluation of the upper abdomen is degraded by streak artifact from the arms which could not be elevated. There is also motion artifact. A dose low ering technique was utilized adhering to the principles of ALARA. CT DOSE: 412.92 mGy.cm FINDINGS: Lung bases: The heart is enlarged and there is trace pericardial effusion. There are moderate pleural effusions with bibasilar consolidation. Liver: Evaluation of the liver is degraded by streak artifact. The unenhanced liver is normal in size , contour, and attenuation. There is no intrahepatic biliary ductal dilatation. Gallbladder: Grossly unremarkable. Spleen: Normal in size and attenuation. Pancreas: The unenhanced pancreas is atrophic and grossly unremarkable. The pancreas is not well asse ssed. Adrenal glands: Unremarkable. Kidneys: The unenhanced kidneys are atrophic and without hydronephrosis. There are no renal calculi i dentified. There is no evidence of contour deforming renal mass lesion. Abdominal vasculature: The abdominal aorta is normal in course and caliber noting advanced atheroscle rotic calcification. Bowel: There is rectosigmoid fecal impaction. Mild rectal wall thickening is identified and perirecta l stranding is noted. There is mild to moderate constipation throughout the remaining colon. There is mild to moderate colonic diverticulosis without clear CT evidence of acute diverticulitis. No bowel obstruction is seen. The appendix is well-visualized and normal. Peritoneum: There is mesenteric edema. Trace free fluid is noted in the abdomen and pelvis. No intrap eritoneal free air is seen. Lymphadenopathy: None. Pelvic viscera: Evaluation of the pelvis is significantly degraded by streak artifact from bilateral hip arthroplasties. The bladder is distended and grossly unremarkable. A calcified uterine fibroid is noted. No adnexal lesion is seen. Skeletal structures: The skeletal structures are osteopenic. Moderate lumbosacral spondylosis is obse rved. No lytic or blastic lesions are seen. There are bilateral hip arthroplasties. Soft tissues: There is anasarca of the body wall. IMPRESSION: 1. Significantly suboptimal examination without oral and IV contrast. The examination is also comprom ised by streak and motion artifact. 2. There is no evidence of solid organ injury in the abdomen or pelvis on this unenhanced examination . 3. Moderate pleural effusions with bibasilar consolidation. This likely represents atelectasis. Corre late clinically for evidence of superimposed pneumonia. 4. Cardiomegaly. 5. There is rectosigmoid fecal impaction. Mild rectal wall thickening and perirectal stranding sugges t stercoral proctitis. Clinical correlation will be required. 6. There is anasarca of the body wall, as well as mesenteric edema and trace free fluid in the abdome n and pelvis. These findings indicate fluid overload. 7. Additional findings as above. Electronically signed by: Duran Rabago M.D. 04/29/2018 6:37 PM
[2018-04-29 18:48] LABS: BUN Creatinine Ratio 25.5 (10-20); Bilirubin Direct 0.5 mg/dl (0-0.2); Creatinine Clr Calc Pharmacy 25.5 ml/min; Est GFR (African American) 39.3; Est GFR (Non-African American) 33.9; Potassium 3.9 mmol/L (3.5-5.1)
[2018-04-29 18:53] LABS: Bilirubin,Total 1.3 mg/dl (0.2-1); Total Protein 6.9 gm/dl (6.4-8.2); Troponin I 0.036 ng/ml (0-0.045)
[2018-04-29 18:54] LABS: Hematocrit (blood only) 41.6 % (37-47); Hemoglobin 12.4 g/dL (12.0-16.0); Mean Corpuscular Hgb Conc 29.8 g/dL (32-36); Mean Corpuscular Volume 82.4 fL (80-100); Platelet Count 290 K/uL (130-400); RDW Coefficient of Variation 23.7 % (11.5-14.5); RDW Standard Deviation 69.2 fL (36.4-46.3); Red Blood Count 5.05 M/uL (4.2-5.4); White Blood Count 6.55 K/uL (4.8-10.8)
[2018-04-29 18:55] LABS: Basophils # (auto) 0.01 K/uL (0-0.2); Basophils % (auto) 0.2 %; Echinocytes 1+; Eosinophils # (auto) 0.02 K/uL (0-0.5); Eosinophils % (auto) 0.3 %; Immature Granulocytes # (auto) 0.02 K/uL (0.00-0.02); Immature Granulocytes % (auto) 0.3 %; Lymphocytes # (auto) 0.85 K/uL (1.2-3.4); Monocytes # (auto) 0.44 K/uL (0.11-0.59); Monocytes % (auto) 6.7 %; Neutrophils # (auto) 5.21 K/uL (1.4-6.5); Neutrophils % (auto) 79.5 %; Ovalocytes 1+; Poikilocytosis Present; Schistocytes 1+; Target Cells 1+
--- NOTE | 2018-04-29 22:55 | Emergency Department Note ---
Entered by Kimi Portillo acting as a scribe for History of Present Illness General Chief complaint: GI Bleed Stated complaint: GI BLEED Time Seen by Provider: 04/29/18 17:03 Source: family Limitations: altered mental status History of Present Illness Provider complaint: GI bleed The patient is a 77 year old female who presents to the Emergency Room with concerns of a GI bleed per the patient's family. Per family, the patient is losing blood in her stools. Per family, the patient lives at a alf and they state that the patient could have fallen 1 or 2 days prior to arrival. The HPI is limited due to the patient's mental status. Home Medications Home Medications Medication Instructions Recorded Confirmed Type ranitidine HCl 300 mg PO QAM 04/07/18 04/29/18 History aspirin [Ecotrin Low Strength] 81 mg PO QAM 30 Days #30 tab 04/21/18 04/29/18 Rx digoxin 0.125 mg PO DAILY@1600 30 Days #30 04/21/18 04/29/18 Rx tab docusate sodium 100 mg PO BID 30 Days #60 cap 04/21/18 04/29/18 Rx furosemide 20 mg PO QAM 30 Days #30 tab 04/21/18 04/29/18 Rx levothyroxine [Synthroid] 125 mcg PO DAILYBB 30 Days #30 tab 04/21/18 04/29/18 Rx lisinopril [Zestril] 5 mg PO QAM 30 Days #30 tab 04/21/18 04/29/18 Rx sennosides [Senokot] 8.6 mg PO QAM 30 Days #30 tab 04/21/18 04/29/18 Rx apixaban [Eliquis] 2.5 mg PO BID 04/29/18 04/29/18 History ferrous sulfate 325 mg PO QAM 04/29/18 04/29/18 History metoprolol succinate 12.5 mg PO QAM 04/29/18 04/29/18 History multivitamin 1 tab PO QAM 04/29/18 04/29/18 History Allergies Allergy/AdvReac Type Severity Reaction Status Date / Time adhesive Allergy Unknown allergy to Verified 04/29/18 18:22 tape, bandaids Beta-Blockers AdvReac Severe low heart Verified 04/29/18 18:22 (Beta-Adrenergic Bloc rate Past Med/Surg History Medical History Hypertension (Chronic) Alzheimer disease (Chronic) CKD (chronic kidney disease) (Chronic) Cardiomyopathy (Chronic) DVT prophylaxis Social History marital status: Current Living Situation: Spouse Feels Safe at Home: Yes Smoking Status: Unknown if ever smoked Hx Alcohol Use: No Hx Substance Use: No Beliefs That Will Affect Care: None Preferred Language: Lao Review of Systems The ROS is limited due to the patient's mental status. Physical Exam Vital Signs Vital Signs - 24 hr 04/29/18 16:36 04/29/18 18:40 04/29/18 18:43 Temperature 36.4 C L Temperature Source Oral Sepsis Recent Fever Within 48 Hours No Sepsis Action Taken by Nursing No Action Required Pulse Rate 113 H Pulse Rate [Right Finger] 115 H Respiratory Rate 15 16 Respiratory Effort / Characteristics Non-Labored Non-Labored Respiratory Depth Normal Normal Blood Pressure 114/88 Blood Pressure [Right Arm] 116/81 Blood Pressure Mean 96 Blood Pressure Mean [Right Arm] 92 Pulse Oximetry 93 90 Oxygen Delivery Method Room Air Room Air Nasal Cannula Oxygen Flow Rate 4 04/29/18 20:29 04/29/18 22:28 Temperature Temperature Source Sepsis Recent Fever Within 48 Hours Sepsis Action Taken by Nursing Pulse Rate Pulse Rate [Right Finger] 62 66 Respiratory Rate 12 12 Respiratory Effort / Characteristics Respiratory Depth Blood Pressure Blood Pressure [Right Arm] 100/80 Blood Pressure Mean Blood Pressure Mean [Right Arm] 86 Pulse Oximetry 98 100 Oxygen Delivery Method Room Air Oxygen Flow Rate HENT: Exam performed. � Head: Normocephalic and atraumatic. � Right Ear: External ear normal. No mastoid tenderness. � Left Ear: External ear normal. No mastoid tenderness. � Mouth/Throat: The oropharynx is clear and moist. No trismus in the jaw. No dental abscesses or uvula swelling. No oropharyngeal exudate or tonsillar abscesses. EYES: Conjunctivae and EOM are normal. Pupils are equal, round, and reactive to light. Right eye exhibits no discharge. Left eye exhibits no discharge. No scleral icterus. NECK: Normal range of motion. Neck supple. No JVD present. No spinous process tenderness present. No carotid bruit present. No rigidity. No tracheal deviation and normal range of motion present. No Brudzinski's sign and no Kernig 's sign noted. CV: Mild JVD, irregular rhythm, regular rate. No murmurs, rubs or clicks. PULM/CHEST: Effort normal and breath sounds normal. Rhonchi bilaterally. Chest Wall: She exhibits no tenderness. ABD: The abdomen is soft. Bowel sounds are normal. She has no distension. No mass is present. Diffuse pain to palpitation of the abdomen. There is no rebound , no guarding, and no Jaramillo's sign. Rovsig negative MUSC/SKEL: Normal range of motion. There is no peripheral edema, tenderness or deformity. LYMPH: No cervical adenopathy. NEURO: Motor and sensation grossly intact. Baseline mental status per family at bedside. SKIN: Skin is warm and dry. She is not diaphoretic. GI: Passing blood clots through the rectum. Course 1708: Past medical records reviewed. The patient was evaluated in room C7, and a complete history and physical examination were performed. 1710: I reviewed the patient's paperwork. The patient takes Aspirin, Coumadin, Digoxin, AllerQuest, and Lasix. 1712: I performed a rectal exam on the patient and she is passing blood clots through her rectum. 1949: Vital signs stable. Labs within normal limits with the exception of mildly elevated lactic acid 2.1. Imaging shows mild cardiomegaly with cephalization. Given the patient being on blood thinners and actively passing large clots to her stool, the patient will be admitted to the hospitalist service. I discussed the patient's case with Dr. Wei [facility] who will evaluate the patient for further hospitalization. Consultations Consultation #1: Dr. Wei Davis Hospitalist Time: 19:49 Administered Medications Sodium Chloride (Nss 1000ml) 1,000 mls @ 125 mls/hr IV .Q8H SMITH Stop: 05/29/18 17:29 Last Infusion: 04/29/18 22:31 Dose: 0 mls/hr Admin: 04/29/18 18:02 Dose: 125 mls/hr Discontinued Medications Lorazepam (Ativan) 1 mg IM NOW STA Stop: 04/29/18 17:20 Last Admin: 04/29/18 17:40 Dose: 1 mg Medical Decision Making Medical Records Attestation: I reviewed the patient's medical records. Home Medications Current Medication List: was personally reviewed by me Laboratory Data Attestation: I reviewed the patient's lab results. Result diagrams: 04/29/18 18:15 04/29/18 18:15 Lab Results 04/29/18 04/29/18 04/29/18 Range/Units 17:16 18:15 18:15 WBC 6.55 (4.8-10.8) K/uL RBC 5.05 (4.2-5.4) M/uL Hgb 12.4 (12.0-16.0) g/dL Hct 41.6 (37-47) % MCV 82.4 (80-100) fL MCH 24.6 L (25-34) pg MCHC 29.8 L (32-36) g/dL RDW Std Deviation 69.2 H (36.4-46.3) fL RDW Coeff of Ran 23.7 H (11.5-14.5) % Plt Count 290 (130-400) K/uL Immature Gran % (Auto) 0.3 % Neut % (Auto) 79.5 % Lymph % (Auto) 13.0 % Grainger % (Auto) 6.7 % Eos % (Auto) 0.3 % Baso % (Auto) 0.2 % Immature Gran # (Auto) 0.02 (0.00-0.02) K/uL Neut # (Auto) 5.21 (1.4-6.5) K/uL Lymph # (Auto) 0.85 L (1.2-3.4) K/uL Grainger # (Auto) 0.44 (0.11-0.59) K/uL Eos # (Auto) 0.02 (0-0.5) K/uL Baso # (Auto) 0.01 (0-0.2) K/uL Poikilocytosis Present Target Cells 1+ Ovalocytes 1+ Echinocytes 1+ Acanthocytes (Spur) 1+ Schistocytes 1+ PT (9.0-12.0) Seconds INR (0.9-1.1) APTT (21.0-31.0) Seconds PTT Ratio VBG pH (7.36-7.41) VBG pCO2 (38-50) mmHg VBG pO2 mmHg VBG HCO3 mmol/L VBG O2 Saturation % VBG Base Excess mEq/L Barometric Pressure mm/Hg Sodium (136-145) mmol/L Potassium (3.5-5.1) mmol/L Chloride (98-107) mmol/L Carbon Dioxide (21-32) mmol/L Anion Gap (3-11) BUN (7-18) mg/dl Creatinine (0.6-1.2) mg/dl Est Cr Clr Drug Dosing ml/min Est GFR ( Amer) Est GFR (Non-Af Amer) BUN/Creatinine Ratio (10-20) Glucose (70-99) mg/dl Lactate (0.4-2.0) mmol/L Calcium (8.5-10.1) mg/dl Total Bilirubin (0.2-1) mg/dl Direct Bilirubin (0-0.2) mg/dl AST (15-37) U/L ALT (12-78) U/L Alkaline Phosphatase (45-117) U/L Troponin I (0-0.045) ng/ml Total Protein (6.4-8.2) gm/dl Albumin (3.4-5.0) gm/dl Lipase (73-393) U/L Digoxin (0.8-2.0) ng/ml Influenza Type A (PCR) Neg for Influ A (Neg) Influenza Type B (PCR) Neg for Influ B (Neg) Blood Type O Positive Antibody Screen NEGATIVE 04/29/18 04/29/18 04/29/18 Range/Units 18:15 18:15 18:15 WBC (4.8-10.8) K/uL RBC (4.2-5.4) M/uL Hgb (12.0-16.0) g/dL Hct (37-47) % MCV (80-100) fL MCH (25-34) pg MCHC (32-36) g/dL RDW Std Deviation (36.4-46.3) fL RDW Coeff of Ran (11.5-14.5) % Plt Count (130-400) K/uL Immature Gran % (Auto) % Neut % (Auto) % Lymph % (Auto) % Grainger % (Auto) % Eos % (Auto) % Baso % (Auto) % Immature Gran # (Auto) (0.00-0.02) K/uL Neut # (Auto) (1.4-6.5) K/uL Lymph # (Auto) (1.2-3.4) K/uL Grainger # (Auto) (0.11-0.59) K/uL Eos # (Auto) (0-0.5) K/uL Baso # (Auto) (0-0.2) K/uL Poikilocytosis Target Cells Ovalocytes Echinocytes Acanthocytes (Spur) Schistocytes PT 12.8 H (9.0-12.0) Seconds INR 1.3 H (0.9-1.1) APTT 38.7 H (21.0-31.0) Seconds PTT Ratio 1.5 VBG pH (7.36-7.41) VBG pCO2 (38-50) mmHg VBG pO2 mmHg VBG HCO3 mmol/L VBG O2 Saturation % VBG Base Excess mEq/L Barometric Pressure mm/Hg Sodium 148 H (136-145) mmol/L Potassium 3.9 (3.5-5.1) mmol/L Chloride 111 H (98-107) mmol/L Carbon Dioxide 27 (21-32) mmol/L Anion Gap 10.0 (3-11) BUN 37 H (7-18) mg/dl Creatinine 1.46 H (0.6-1.2) mg/dl Est Cr Clr Drug Dosing 25.5 ml/min Est GFR ( Amer) 39.3 Est GFR (Non-Af Amer) 33.9 BUN/Creatinine Ratio 25.5 H (10-20) Glucose 86 (70-99) mg/dl Lactate 2.1 H* (0.4-2.0) mmol/L Calcium 9.0 (8.5-10.1) mg/dl Total Bilirubin 1.3 H (0.2-1) mg/dl Direct Bilirubin 0.5 H (0-0.2) mg/dl AST 33 (15-37) U/L ALT 25 (12-78) U/L Alkaline Phosphatase 99 (45-117) U/L Troponin I 0.036 (0-0.045) ng/ml Total Protein 6.9 (6.4-8.2) gm/dl Albumin 3.0 L (3.4-5.0) gm/dl Lipase 146 (73-393) U/L Digoxin (0.8-2.0) ng/ml Influenza Type A (PCR) (Neg) Influenza Type B (PCR) (Neg) Blood Type Antibody Screen 04/29/18 04/29/18 Range/Units 18:15 18:15 WBC (4.8-10.8) K/uL RBC (4.2-5.4) M/uL Hgb (12.0-16.0) g/dL Hct (37-47) % MCV (80-100) fL MCH (25-34) pg MCHC (32-36) g/dL RDW Std Deviation (36.4-46.3) fL RDW Coeff of Ran (11.5-14.5) % Plt Count (130-400) K/uL Immature Gran % (Auto) % Neut % (Auto) % Lymph % (Auto) % Grainger % (Auto) % Eos % (Auto) % Baso % (Auto) % Immature Gran # (Auto) (0.00-0.02) K/uL Neut # (Auto) (1.4-6.5) K/uL Lymph # (Auto) (1.2-3.4) K/uL Grainger # (Auto) (0.11-0.59) K/uL Eos # (Auto) (0-0.5) K/uL Baso # (Auto) (0-0.2) K/uL Poikilocytosis Target Cells Ovalocytes Echinocytes Acanthocytes (Spur) Schistocytes PT (9.0-12.0) Seconds INR (0.9-1.1) APTT (21.0-31.0) Seconds PTT Ratio VBG pH 7.43 H (7.36-7.41) VBG pCO2 46 (38-50) mmHg VBG pO2 27 mmHg VBG HCO3 30 mmol/L VBG O2 Saturation < 60.0 % VBG Base Excess 5.2 mEq/L Barometric Pressure 728.5 mm/Hg Sodium (136-145) mmol/L Potassium (3.5-5.1) mmol/L Chloride (98-107) mmol/L Carbon Dioxide (21-32) mmol/L Anion Gap (3-11) BUN (7-18) mg/dl Creatinine (0.6-1.2) mg/dl Est Cr Clr Drug Dosing ml/min Est GFR ( Amer) Est GFR (Non-Af Amer) BUN/Creatinine Ratio (10-20) Glucose (70-99) mg/dl Lactate (0.4-2.0) mmol/L Calcium (8.5-10.1) mg/dl Total Bilirubin (0.2-1) mg/dl Direct Bilirubin (0-0.2) mg/dl AST (15-37) U/L ALT (12-78) U/L Alkaline Phosphatase (45-117) U/L Troponin I (0-0.045) ng/ml Total Protein (6.4-8.2) gm/dl Albumin (3.4-5.0) gm/dl Lipase (73-393) U/L Digoxin 2.1 H (0.8-2.0) ng/ml Influenza Type A (PCR) (Neg) Influenza Type B (PCR) (Neg) Blood Type Antibody Screen Imaging Data Radiologist's Impression: Radiology results as stated below per my review and the radiologist's interpretation: CT SCAN OF THE BRAIN WITHOUT IV CONTRAST CLINICAL HISTORY: Fall. COMPARISON STUDY: CT of the brain dated 04/07/2018. TECHNIQUE: Unenhanced axial CT scan of the brain is performed from the vertex to the skull base. A dose lowering technique was utilized adhering to the principles of ALARA. CT DOSE: 614.27 mGy.cm FINDINGS: Brain parenchyma: There are age-related involutional changes noting mild to moderate subcortical and periventricular microangiopathic change. There is no hemorrhage, mass effect, or evidence of acute territorial ischemia by CT criteria. Harrington-white matter differentiation is preserved. No extra-axial fluid collection is seen. Ventricles, sulci, cisterns: Prominent secondary to involutional change. Intracranial vasculature: There is atherosclerotic calcification of the cavernous carotid and vertebral arteries. Calvarium: The skeletal structures are osteopenic. No depressed calvarial fracture is seen. Sinuses and mastoids: The visualized paranasal sinuses are clear. The mastoid air cells are well pneumatized. Orbits: The bony orbits are grossly intact. IMPRESSION: There is no hemorrhage, mass effect, or evidence of acute territorial ischemia by CT criteria. Electronically signed by: Duran Rabago M.D. 04/29/2018 6:29 PM SINGLE VIEW PELVIS CLINICAL HISTORY: Fall. FINDINGS: 2 AP pelvic radiographs are compared to study dated 10/27/2009. The skeletal structures are osteopenic. There is no evidence of fracture. Bilateral bipolar hip arthroplasties are in place. No periprosthetic lucency is identified. Sclerotic change is noted in the sacroiliac joints. Lumbosacral spondylosis is partially imaged. The overlying soft tissues are within normal limits. No bowel obstruction is seen. IMPRESSION: 1. There is no radiographic evidence of fracture. 2. Bilateral hip arthroplasties are in place. Electronically signed by: Duran Rabago M.D. 04/29/2018 5:[address] SCAN OF THE ABDOMEN AND PELVIS WITHOUT IV CONTRAST CLINICAL HISTORY: Fall. COMPARISON STUDY: Pelvic x-ray dated 04/29/2018. TECHNIQUE: CT scan of the abdomen and pelvis is performed from the lung bases to the proximal femora. Images are reviewed in the axial, sagittal, and coronal planes. IV contrast was not administered for this examination as per the referring clinician. Note that the examination was performed in significantly suboptimal fashion without oral and IV contrast. Evaluation of the upper abdomen is degraded by streak artifact from the arms which could not be elevated. There is also motion artifact. A dose lowering technique was utilized adhering to the principles of ALARA. CT DOSE: 412.92 mGy.cm FINDINGS: Lung bases: The heart is enlarged and there is trace pericardial effusion. There are moderate pleural effusions with bibasilar consolidation. Liver: Evaluation of the liver is degraded by streak artifact. The unenhanced liver is normal in size, contour, and attenuation. There is no intrahepatic biliary ductal dilatation. Gallbladder: Grossly unremarkable. Spleen: Normal in size and attenuation. Pancreas: The unenhanced pancreas is atrophic and grossly unremarkable. The pancreas is not well assessed. Adrenal glands: Unremarkable. Kidneys: The unenhanced kidneys are atrophic and without hydronephrosis. There are no renal calculi identified. There is no evidence of contour deforming renal mass lesion. Abdominal vasculature: The abdominal aorta is normal in course and caliber noting advanced atherosclerotic calcification. Bowel: There is rectosigmoid fecal impaction. Mild rectal wall thickening is identified and perirectal stranding is noted. There is mild to moderate constipation throughout the remaining colon. There is mild to moderate colonic diverticulosis without clear CT evidence of acute diverticulitis. No bowel obstruction is seen. The appendix is well-visualized and normal. Peritoneum: There is mesenteric edema. Trace free fluid is noted in the abdomen and pelvis. No intraperitoneal free air is seen. Lymphadenopathy: None. Pelvic viscera: Evaluation of the pelvis is significantly degraded by streak artifact from bilateral hip arthroplasties. The bladder is distended and grossly unremarkable. A calcified uterine fibroid is noted. No adnexal lesion is seen. Skeletal structures: The skeletal structures are osteopenic. Moderate lumbosacral spondylosis is observed. No lytic or blastic lesions are seen. There are bilateral hip arthroplasties. Soft tissues: There is anasarca of the body wall. IMPRESSION: 1. Significantly suboptimal examination without oral and IV contrast. The examination is also compromised by streak and motion artifact. 2. There is no evidence of solid organ injury in the abdomen or pelvis on this unenhanced examination. 3. Moderate pleural effusions with bibasilar consolidation. This likely represents atelectasis. Correlate clinically for evidence of superimposed pneumonia. 4. Cardiomegaly. 5. There is rectosigmoid fecal impaction. Mild rectal wall thickening and perirectal stranding suggest stercoral proctitis. Clinical correlation will be required. 6. There is anasarca of the body wall, as well as mesenteric edema and trace free fluid in the abdomen and pelvis. These findings indicate fluid overload. 7. Additional findings as above. Electronically signed by: Duran Rabago M.D. 04/29/2018 6:37 PM SINGLE VIEW CHEST CLINICAL HISTORY: Fall. FINDINGS: An AP, portable, semierect chest radiograph is compared to study dated 04/20/2018 and correlated with chest CT dated 04/08/2018. The examination is degraded by portable technique and patient rotation. The heart is markedly enlarged and there is atherosclerotic calcification of the thoracic aorta. There is pulmonary vascular congestion and interstitial edema. Emphysema and chronic interstitial thickening are similar to previous. There are layering pleural effusions with bibasilar consolidation. Asymmetric consolidation is also seen in the left perihilar region. No pneumothorax is seen. The skeletal structures are osteopenic. The bony thorax is grossly intact. IMPRESSION: 1. Cardiomegaly with evidence of congestive failure and interstitial edema. 2. There are layering pleural effusions with bibasilar consolidation. This likely represents atelectasis. Correlate clinically for evidence of superimposed pneumonia. 3. Asymmetric airspace consolidation is seen in the left perihilar region. This is new from previous and could represent asymmetric pulmonary edema and/or superimposed pneumonia. Again, clinical correlation will be required. Electronically signed by: Duran Rabago M.D. 04/29/2018 6:00 PM ECG Data Attestation: I personally reviewed and interpreted this ECG as follows: Indication: other (GI bleed) Rate (beats per minute): 93 Rhythm: sinus rhythm Findings: + other (QRS normal) and + peaked T-waves; no ST depression and no ST elevation Blood Pressure Blood Pressure Findings: Normal blood pressure MDM Narrative 1708: Past medical records reviewed. The patient was evaluated in room C7, and a complete history and physical examination were performed. 1710: I reviewed the patient's paperwork. The patient takes Aspirin, Coumadin, Digoxin, AllerQuest, and Lasix. 171: I performed a rectal exam on the patient and she is passing blood clots through her rectum. 1948: Vital signs stable. Labs within normal limits with the exception of mildly elevated lactic acid 2.1. Imaging shows mild cardiomegaly with cephalization. Given the patient being on blood thinners and actively passing large clots to her stool, the patient will be admitted to the hospitalist service. I discussed the patient's case with Dr. [facility] who will evaluate the patient for further hospitalization. Impression & Plan GI bleed Discharge Plan Visit Data Chief Complaint: GI Bleed Stated Complaint: GI BLEED ED Provider: Isidro Parra Discharge Problem: GI bleed Forms Stand Alone Forms: My [facility] Prescriptions Prescriptions: No Action multivitamin Tablet 1 tab PO QAM RF: 0 apixaban [Eliquis] 2.5 mg Tablet 2.5 mg PO BID RF: 0 metoprolol succinate 25 mg tablet extended release 24 hr 12.5 mg PO QAM RF: 0 ferrous sulfate 325 mg (65 mg iron) tablet,delayed release (DR/EC) 325 mg PO QAM RF: 0 ranitidine HCl 150 mg Tablet 300 mg PO QAM RF: 0 sennosides [Senokot] 8.6 mg Tablet 8.6 mg PO QAM 30 Days Qty: 30 RF: 0 levothyroxine [Synthroid] 125 mcg Tablet 125 mcg PO DAILYBB 30 Days Qty: 30 RF: 0 docusate sodium 100 mg Capsule 100 mg PO BID 30 Days Qty: 60 RF: 0 aspirin [Ecotrin Low Strength] 81 mg Tablet,Delayed Release (Dr/Ec) 81 mg PO QAM 30 Days Qty: 30 RF: 0 lisinopril [Zestril] 5 mg Tablet 5 mg PO QAM 30 Days Qty: 30 RF: 0 digoxin 125 mcg Tablet 0.125 mg PO DAILY@1600 30 Days Qty: 30 RF: 0 furosemide 20 mg Tablet 20 mg PO QAM 30 Days Qty: 30 RF: 0 Referrals Referrals: Brown Jackman [Primary Care Provider] - The scribe's documentation has been prepared under my direction and personally reviewed by me in its entirety. I confirm that the note above accurately reflects all work, treatment, procedures, and medical decision making performed by me.
--- NOTE | 2018-04-30 00:14 | History and Physical Report ---
DATE OF ADMISSION: 04/29/2018 CHIEF COMPLAINT: GI bleed. HISTORY OF PRESENT ILLNESS: A 77-year-old female with past medical history significant for hypertension, hypothyroidism, chronic kidney stage III, reflux, recent diagnosis of atrial flutter, iron deficiency anemia ,History of pleural effusions, and systolic CHF. She was recently in the hospital from April 07 to April 21. At that time found to be tachycardic with heart rates in the low 100s and ekg showed atrial flutter with RVR. TSH was 27, creatinine was 1.4, MCV was 77 at that time and she has questionable right infrahilar opacity with moderate pleural effusions. She was seen by pulmonary and was drained of 1 liter of fluid in the right side. Seen by CT surgery, but no pleurex catheter was recommended at that time as effusions were transudative.She was also seen by cardiology and and she was discharged on Toprol-XL, digoxin, and no anticoagulation was prescribed at that time because of iron deficiency anemia and questionable lung mass and supposed to follow with cardiology. Also she was placed on Lasix 20 mg daily at discharge, and her pleural effusion was thought to be from CHF and cardiology was also of the opinion that effusions could be from myxedema from hypothyroidism.Also patient was getting confused lately for last several months and MRI was done which showed moderate atrophy, but otherwise unremarkable. Vitamin B12, thiamine level, and folate were normal at that time and she was seen by neurology, thought to be having ongoing dementia. She was discharged to [facility]. She is mostly confused at [facility], she does not know her name. Sometimes recognizes her , but does not recognize the family. She is on soft diet, not eating much lately and she ambulates with a cane but cannot walk much and she does sometimes get combative at the group home. She seems to be started on Eliquis and questionable Coumadin, but INR level is only 1.3 today. We do not know when were this medications started. Tried to call [facility], but no one was answering. Her family does not know when were these medications started. The patient today started to have Large Blood clots per rectum. Patient was also complaining of abdominal pain for last couple of days. So She was brought in here. The patient was given Ativan in the ER, currently is sedated. All this history was got from the family .As per family no recent fever or chills . No cough. Could not get any other review of symptoms. ALLERGIES: ADHESIVES. PAST MEDICAL HISTORY: As mentioned above. PAST SURGICAL HISTORY: CABG, bilateral total hip replacements. MEDICATIONS: She was discharged on April 21 on Senokot 8.6 mg p.o. daily, levothyroxine 125 mcg p.o. daily, Colace 100 mg p.o. b.i.d., ferrous sulfate 325 mg p.o. daily, aspirin 81 mg p.o. daily, lisinopril 5 mg p.o. daily, digoxin 0.125 mg p.o. daily, Lasix 20 mg p.o. daily, metoprolol succinate 12.5 mg p.o. daily. Seems now she is also taking Eliquis and Coumadin. FAMILY HISTORY: Significant for father had prostate cancer, skin cancer. Mother had skin cancer. Sister had diabetes. Mother also had heart disorder. SOCIAL HISTORY: , currently at [facility], quit smoking in 1990. Smoked 1.5 packs a day for 32 years. No alcohol use, no drug use. REVIEW OF SYSTEMS: Unobtainable at this time. PHYSICAL EXAMINATION: GENERAL: The patient is old and frail, currently drowsy. VITAL SIGNS: Temperature 36.4, pulse 62, respiratory rate 12, blood pressure 100/80, oxygen 98% on 4 liters. HEENT: No pallor, no icterus. Pupils equal, round, and reactive to light. NECK: No JVD or neck masses, no carotid bruits. CARDIOVASCULAR: S1, S2 heard, tachycardia, irregular. No murmurs. RESPIRATORY SYSTEM: Normal AP diameter. No accessory muscle use. Mild bibasilar crackles. No wheezing. ABDOMEN: Soft, bowel sounds sluggish. No distention. CENTRAL NERVOUS SYSTEM: Currently drowsy, not responding to any questions or commands. EXTREMITIES: Trace pedal edema seen. Mild erythematous changes above the ankle regions but as per this is chronic. LABORATORY DATA: WBC 6.5, hemoglobin 12.4, hematocrit 41.6, platelets 290. PT 12.8, INR 1.3, APTT 38.7. Venous blood gases, pH 7.4, pCO2 of 46, pO2 of 77, bicarbonate 30. Sodium 148, potassium 3.9, chloride 111, bicarbonate 27, BUN 37, creatinine 1.46, serum glucose 86. Lactate 2.1, calcium 9, total bilirubin 1.3, direct bilirubin 0.5, AST 33, ALT 25, alkaline phosphatase is 99, troponin I 0.036, lipase 146, digoxin 2.1. Influenza type A and B PCR negative. IMAGING DATA: Pelvic x-ray, no acute findings seen. CT of the head, no acute findings seen. Chest x-ray, cardiomegaly with evidence of congestive failure and interstitial edema, pleural effusions and bibasilar consolidations. Asymmetric consolidation seen in the left perihilar region, seems new from previous and could represent asymmetric pulmonary edema or superimposed pneumonia. CT of the abdomen and pelvis, no evidence of solid organ injury in the abdominal pelvis, moderate pleural effusions, bibasilar consolidation. Correlate for evidence of superimposed pneumonia with cardiomegaly. There is rectosigmoid fecal impaction, mild rectal wall thickening and pericolic stranding suggestive of ____ proctitis, anasarca of the body wall, as well as mesenteric edema and trace free fluid in the abdomen and pelvis. These findings indicate fluid overload. EKG: Atrial flutter with rate of 112. Nonspecific T-wave abnormalities. ASSESSMENT AND PLAN: This 77-year-old female presents with gastrointestinal bleed. 1. Gastrointestinal bleed, bright blood per rectum. Currently, blood pressure is okay and hemoglobin is stable. We will hold the aspirin. She was recently diagnosed with atrial flutter last admission, but she was not put on any anticoagulation, but somehow she seems to be started on Eliquis and Coumadin, there is confusion regarding these medications. Tried to call [facility], could not get any answer, and there is no mention of the medication in the EPIC,. Family is not aware. We will hold the aspirin and Eliquis and the INR is 1.3 . vitamin K. N.p.o. Gentle fluids, IV antiemetics, and H and H q. 6 hours. We will hold 2 units of PRBCs, got the blood consent from family. Will start her on IV Protonix drip. Consult GI for further recommendations. 2. New-onset atrial flutter last admission. Digoxin level is high at 2.1. We will hold the digoxin for the repeat levels. Continue Toprol-XL, holding aspirin. We will place on IV Lopressor p.r.n. with holding parameters and monitor in the tele floor.Holding anticoagulation. Consulted cardiology 3. Kisbw-yl-ekukaai systolic congestive heart failure. The patient shows volume overload on the CAT scan of the abdomen and pelvis and also bilateral moderate pleural effusions and mild congestive heart failure on chest x-ray. The patient is getting 20mg of Lasix at home. Holding the lisinopril for now and holding digoxin. Planned to place IV Lasix 20 mg daily but as BP was low held for now. Patient is also getting gentle fluids. We will monitor for volume overload and consult cardio for further recommendations. 4. Elevation of lactic acid, it is 2.1. The patient has been complaining of abdominal pain for the last of couple of days at home as per the family, but CAT scan without contrast done is unremarkable except for volume overload and some proctitis. We will be consulting GI. We will follow the repeat lactic acid levels. Getting gentle fluids. 5. Mild elevation in bilirubin seen with last admission. We will follow repeat labs. 6. Acute renal failure on chronic kidney disease stage III. Baseline creatinine around 1.2 to 1.4, presently creatinine to 1.46, getting gentle fluids. Holding Lasix and lisinopril.We will follow the repeat labs . 7. Moderate pleural effusion. Monitor for worsening. May need to reconsult CT surgery. 8. Ongoing dementia and delirium. The patient has been getting confused for the last few months, followed with neurology in the hospital. Last admission, MRI showed moderate atrophy.. She was getting combative at the group home. We will monitor for any delirium. 10. Hypothyroidism, we will give IV Synthroid for now. We will repeat the TSH levels in the a.m. 11. Deep venous thrombosis prophylaxis, sequential compression devices for now. 12. Disposition: Admit to tele floor. PT, OT prior to discharge. Social service to help with discharge planning. May discharge back to [facility] when stable. 12. Code status, level 3, as per my discussion with the family. MATYD
[2018-04-30] MEDS ORDERED: ONDANSETRON INJ 2 MG/ML 2 ML VIAL IV PRN (00:19)
[2018-04-30] MEDS ORDERED: PHYTONADIONE 5 MG TAB PO STA (00:19)
[2018-04-30] MEDS ORDERED: ACETAMINOPHEN 325 MG TAB PO PRN (00:19)
[2018-04-30] MEDS ORDERED: SODIUM CHLORIDE 0.9% 1000ML 1,000 ML IV SCH (00:19)
[2018-04-30] MEDS ORDERED: NITROGLYCERIN SL 0.4 MG/TAB TAB SL PRN (00:19)
[2018-04-30 01:09] LABS: Hematocrit (blood only) 38.8 % (37-47); Hemoglobin 11.5 g/dL (12.0-16.0)
[2018-04-30] MEDS: PANTOprazole 40 MG in DEXTROSE 5% 100 ML IV SCH ×5 (02:17→22:45)
[2018-04-30] MEDS ORDERED: METOPROLOL TARTRATE 1 MG/ML VIAL IV PRN (03:43)
[2018-04-30 06:10] LABS: Hematocrit (blood only) 40.2 % (37-47); Hemoglobin 11.7 g/dL (12.0-16.0); Mean Corpuscular Hgb Conc 29.1 g/dL (32-36); Mean Corpuscular Volume 83.1 fL (80-100); Mean Platelet Volume 11.8 fL (7.4-10.4); Platelet Count 287 K/uL (130-400); RDW Coefficient of Variation 23.7 % (11.5-14.5); RDW Standard Deviation 69.5 fL (36.4-46.3); Red Blood Count 4.84 M/uL (4.2-5.4); White Blood Count 5.58 K/uL (4.8-10.8)
[2018-04-30 06:29] LABS: Anisocytosis Present; Basophils # (auto) 0.01 K/uL (0-0.2); Basophils % (auto) 0.2 %; Echinocytes 1+; Eosinophils # (auto) 0.03 K/uL (0-0.5); Eosinophils % (auto) 0.5 %; Hypochromasia Present; Immature Granulocytes # (auto) 0.02 K/uL (0.00-0.02); Immature Granulocytes % (auto) 0.4 %; Lymphocytes # (auto) 1.04 K/uL (1.2-3.4); Lymphocytes % (auto) 18.6 %; Monocytes # (auto) 0.42 K/uL (0.11-0.59); Monocytes % (auto) 7.5 %; Neutrophils # (auto) 4.06 K/uL (1.4-6.5); Neutrophils % (auto) 72.8 %; Ovalocytes 1+; Schistocytes Occasional; Target Cells 1+
[2018-04-30 06:31] LABS: INR 1.3 (0.9-1.1); Prothrombin Time 12.8 Seconds (9.0-12.0)
[2018-04-30 06:37] LABS: Albumin Level 2.9 gm/dl (3.4-5.0); BUN Creatinine Ratio 27.2 (10-20); Bilirubin Direct 0.5 mg/dl (0-0.2); Calcium 8.8 mg/dl (8.5-10.1); Creatinine Clr Calc Pharmacy 25.5 ml/min; Est GFR (African American) 43.2; Est GFR (Non-African American) 37.2; Potassium 4.8 mmol/L (3.5-5.1)
[2018-04-30 06:50] LABS: Bilirubin,Total 1.2 mg/dl (0.2-1); Total Protein 6.6 gm/dl (6.4-8.2)
[2018-04-30 07:08] LABS: T4 Free Thyroxine 0.95 ng/dl (0.8-1.6)
[2018-04-30] MEDS: LEVOTHYROXINE SODIUM IV SCH (08:18)
[2018-04-30] MEDS ORDERED: DEXTROSE 5% 1,000 ML IV SCH (08:30)
--- NOTE | 2018-04-30 08:32 | Hospitalist Progress Note ---
Date of Service April 30, 2018 Assessment & Plan (1) GI bleed: This 77-year-old female presents with gastrointestinal bleed. Gastrointestinal bleed, bright blood per rectum hold aspirin, hold anticoagulation continue IV protonics Gastroenterology evaluation is pending Elevation of lactic acid The patient has been complaining of abdominal pain for the last of couple of days at home as per the family, but CAT scan without contrast done is unremarkable except for volume overload and some proctitis. lactic acid downtrending after IV fluids Hypernatrema and Hyperchloremic from normal saline IV fluids will switch to D5 water IV Acute kidney injury on chronic kidney disease stage III ALLEGRA resolving with IV fluids Dvzak-rj-mocmifk systolic congestive heart failure. volume overload on the CAT scan of the abdomen and pelvis and also bilateral moderate pleural effusions and mild congestive heart failure on chest x-ray. previous known effusions were difficult to manage due to low blood pressures with lasix will give IV Lasix 20 mg daily for now given additional fluids given to the patient via IV hold lisinopril for now to maintain blood pressures atrial fibrillation with rapid ventricular response patient may not accept the home dose oral Metoprolol succinate will give metoprolol tartrate 5 mg IV q6 hours as needed for tachycardia admission digoxin mildly elevated as 2.1 and digoxin has been held pending repeat levels cardiology consult requested by the admitting hospitalist physician Dementia and delirium Reorient as needed, 1 to 1 at bedside Hypothyroidism The TSH of 13.9 on this admission is an improvement of 27.2 which was seen in the beginning of the previous hospital stay will give IV Levothyroxine for now and then plan to continue home dose Levothyroxine 125 mcg daily if patient agreeable to take the medication by mouth Deep venous thrombosis prophylaxis, sequential compression devices for now. Code status, level 3 family members [phone], son [phone] Subjective Patient seen and examined at the bedside. She is somewhat agitated. She just had been cleaned by nursing staff who noted bright red blood per rectum Patient is verbal. Patient cannot tell medical staff what is bothering her. Patient cannot say whether she has pain or not. Review of systems could not be obtained have discussed with patient's Luis via landline [phone] who will be visiting the patient later today Physical Exam 2 Vital Signs (Past 24 Hours): Last Vital Signs Temp 36.3 C L 01/24/19 03:29 Pulse 115 H 04/30/18 03:29 Resp 18 04/30/18 03:29 BP 111/78 04/30/18 03:29 Pulse Ox 91 04/30/18 03:29 Physical Exam: GENERAL: confused, uncomfortable HEENT: No pallor, no icterus. Pupils equal, round, and reactive to light. NECK: No JVD or neck masses, no carotid bruits. CARDIOVASCULAR: S1, S2 heard, tachycardia, irregular. No murmurs. RESPIRATORY SYSTEM: Normal AP diameter. No accessory muscle use. Mild bibasilar crackles. No wheezing. ABDOMEN: Soft, bowel sounds sluggish. No distention. EXTREMITIES: Trace pedal edema seen. Mild erythematous changes above the ankle regions _ (1) GI bleed GI bleed type/associated pathology: unspecified gastrointestinal hemorrhage type Gastritis type: Qualified Code(s): K92.2 - Gastrointestinal hemorrhage, unspecified
[2018-04-30] MEDS: METOPROLOL SUCC 25MG EXT REL TAB PO SCH (08:46)
[2018-04-30] MEDS: METOPROLOL TARTRATE 1 MG/ML VIAL IV PRN (08:54)
[2018-04-30] MEDS ORDERED: FUROSEMIDE 40 MG/4 ML VIAL IV SCH (09:00)
[2018-04-30] MEDS ORDERED: FUROSEMIDE 20 MG in SYRINGE 0 ML IV SCH (09:00)
[2018-04-30] MEDS: FUROSEMIDE 20 MG in SYRINGE 0 ML IV SCH (09:23)
--- NOTE | 2018-04-30 09:58 | Cardiology Consultation ---
Date of Consultation April 30, 2018 Supervising Physician Attestation: I have personally performed a history and physical examination on the patient. I agree with the physician clinical assistant professor's findings and plan as documented with the following additions. Subjective: Patient agitated, noncommunicative. One-to-one supervision with nursing executive at present. Exam: Cachectic Tachycardic Data: Telemetry revealing atrial flutter at 112 bpm Assessment and Plan: Rectal bleeding Dilated cardiomyopathy Atrial fibrillation/atrial flutter -Difficult to determine if this is a reversible problem with her cognition. At present, I think her rates are reasonably well enough controlled. It is clear that she is not a candidate for anticoagulation given current rectal bleeding. Recommend that we hold aspirin and other anticoagulants and provide supportive care. DVT prophylaxis: Sequential pneumatic compression devices Carlos Mcleod, Assessment & Plan (1) GI bleed: Recommend holding ASA Recommend discontinuation of anticoagulation. Risks of jail anticoagulation are greater than the benefit (fall risk, iron deficiency anemia, active GI bleeding) Further management as per hospitalist service and GI (2) Heart failure, systolic, with acute decompensation: Etiology unclear, ? ischemic, ? tachycardia induced Volume status is mildly hypervolemic Continue low dose IV furosemide for now (3) Atypical atrial flutter: Recommend rate control without anticoagulation Hold digoxin secondary to digitalis excess on presentation Consider resumption of digoxin down the road at 125 mcg only on MWF Continue IV metoprolol until able to take oral metoprolol succinate Titrate metoprolol succinate for rate control as blood pressure permits (4) Digoxin toxicity: Hold digoxin See above (5) ASCVD (arteriosclerotic cardiovascular disease): Chart history of ASCVD and remote CABG x 2 in 1989 (details unknown) Recommend medical management. Overall, this patient appears to be end stage. Conservative medical management is indicated. Consider hospice. History of Present Illness Reason for Consultation: CHF. Atrial fibrillation Requesting Physician: Bakari Carvajal MD Attending Physician: Mal Russo MD History of Present Illness Patient readmitted to [facility] ([facility]) from [facility] secondary to bright red blood per rectum. Per documentation, she was recently admitted to [facility] with altered mental status, hypothyroidism, systolic heart failure of unknown duration, and atrial flutter with a rapid ventricular response of unknown duration. During her recent hospitalization earlier this month she was not felt to be a candidate for anticoagulation secondary to high fall risk and iron deficiency anemia however when she was readmitted to [facility] on 04/29/2018 she was notably being prescribed Eliquis 2.5 mg twice a day, Coumadin 1 mg/day, and ASA 81 mg/day The patient is not a reliable source of information. No family members are visiting at the present time. Past Medical/Surgical History: Recent hospitalization with altered mental status, dementia Atrial fibrillation/flutter initially diagnosed in April 2018, of unknown duration. Anticoagulation risks felt to be greater than the benefits during the recent hospitalizatin secondary to her high fall risk and iron deficiency anemia Systolic congestive heart failure, severe LV systolic dysfunction, EF 25% ASCVD status post CABG x 2 in 1989 Emphysema History of tobacco abuse Hypertension Hypothyroidism Stage III chronic kidney disease GERD Iron deficiency anemia Major depressive disorder Bilateral hip replacements Family History: Positive for CAD in her father, cancer in her mother Social History: Reformed smoker, 1.5 ppd x 35 years. No significant alcohol. No illegal drug use. A complete and accurate review of systems was unable to be performed. The patient is not a reliable source of information secondary to confusion, dementia. Allergies Allergy/AdvReac Type Severity Reaction Status Date / Time adhesive Allergy Unknown allergy to Verified 04/29/18 18:22 tape, bandaids Beta-Blockers AdvReac Severe low heart Verified 04/29/18 18:22 (Beta-Adrenergic Bloc rate Home Medications Home Medications Medication Instructions Recorded Confirmed Type ranitidine HCl 300 mg PO QAM 04/07/18 04/29/18 History aspirin [Ecotrin Low Strength] 81 mg PO QAM 30 Days #30 tab 04/21/18 04/29/18 Rx digoxin 0.125 mg PO DAILY@1600 30 Days #30 04/21/18 04/29/18 Rx tab docusate sodium 100 mg PO BID 30 Days #60 cap 04/21/18 04/29/18 Rx furosemide 20 mg PO QAM 30 Days #30 tab 04/21/18 04/29/18 Rx levothyroxine [Synthroid] 125 mcg PO DAILYBB 30 Days #30 tab 04/21/18 04/29/18 Rx lisinopril [Zestril] 5 mg PO QAM 30 Days #30 tab 04/21/18 04/29/18 Rx sennosides [Senokot] 8.6 mg PO QAM 30 Days #30 tab 04/21/18 04/29/18 Rx apixaban [Eliquis] 2.5 mg PO BID 04/29/18 04/29/18 History ferrous sulfate 325 mg PO QAM 04/29/18 04/29/18 History metoprolol succinate 12.5 mg PO QAM 04/29/18 04/29/18 History multivitamin 1 tab PO QAM 04/29/18 04/29/18 History Patient History Medical History Hypertension (Chronic) Alzheimer disease (Chronic) CKD (chronic kidney disease) (Chronic) Cardiomyopathy (Chronic) DVT prophylaxis Social History marital status: Current Living Situation: [facility] Feels Safe at Home: Yes Smoking Status: Unknown if ever smoked Hx Alcohol Use: No Hx Substance Use: No Beliefs That Will Affect Care: None Preferred Language: Azeri Communication Ability Comment: Non-verbal Physical Exam 2 Vital Signs (Past 24 Hours): Last Vital Signs Temp 36.3 C L 04/30/18 03:29 Pulse 115 H 04/30/18 03:29 Resp 18 04/30/18 03:29 BP 111/78 04/30/18 03:29 Pulse Ox 91 04/30/18 03:29 Physical Exam: General: NAD. She is not alert to person, place, or time. HEENT: Normocephalic. Atraumatic. PER. Conjunctiva pink, sclera pale. Neck: Elevated JVP. Heart: Regular at 110 bpm. Systolic murmur heart throughout the precordium. Lung: Diminished. Decreased. Scattered rales. Abdomen: +BS. Extremities: No clubbing, cyanosis, or edema. Results & Data Laboratory Results Laboratory Results - last 24 hr 04/29/18 04/29/18 04/29/18 17:16 18:15 18:15 WBC 6.55 RBC 5.05 Hgb 12.4 Hct 41.6 MCV 82.4 MCH 24.6 L MCHC 29.8 L RDW Std Deviation 69.2 H RDW Coeff of Ran 23.7 H Plt Count 290 MPV Immature Gran % (Auto) 0.3 Neut % (Auto) 79.5 Lymph % (Auto) 13.0 [place] % (Auto) 6.7 Eos % (Auto) 0.3 Baso % (Auto) 0.2 Immature Gran # (Auto) 0.02 Neut # (Auto) 5.21 Lymph # (Auto) 0.85 L [place] # (Auto) 0.44 Eos # (Auto) 0.02 Baso # (Auto) 0.01 Hypochromasia Poikilocytosis Present Anisocytosis Target Cells 1+ Ovalocytes 1+ Echinocytes 1+ Acanthocytes (Spur) 1+ Schistocytes 1+ PT INR APTT PTT Ratio VBG pH VBG pCO2 VBG pO2 VBG HCO3 VBG O2 Saturation VBG Base Excess Barometric Pressure Sodium Potassium Chloride Carbon Dioxide Anion Gap BUN Creatinine Est Cr Clr Drug Dosing Est GFR ( Amer) Est GFR (Non-Af Amer) BUN/Creatinine Ratio Glucose Lactate Calcium Magnesium Total Bilirubin Direct Bilirubin AST ALT Alkaline Phosphatase Troponin I Total Protein Albumin Lipase TSH Free T4 Digoxin Influenza Type A (PCR) Neg for Influ A Influenza Type B (PCR) Neg for Influ B Blood Type O Positive Antibody Screen NEGATIVE Crossmatch See Detail 04/29/18 04/29/18 04/29/18 18:15 18:15 18:15 WBC RBC Hgb Hct MCV MCH MCHC RDW Std Deviation RDW Coeff of Ran Plt Count MPV Immature Gran % (Auto) Neut % (Auto) Lymph % (Auto) [place] % (Auto) Eos % (Auto) Baso % (Auto) Immature Gran # (Auto) Neut # (Auto) Lymph # (Auto) [place] # (Auto) Eos # (Auto) Baso # (Auto) Hypochromasia Poikilocytosis Anisocytosis Target Cells Ovalocytes Echinocytes Acanthocytes (Spur) Schistocytes PT 12.8 H INR 1.3 H APTT 38.7 H PTT Ratio 1.5 VBG pH VBG pCO2 VBG pO2 VBG HCO3 VBG O2 Saturation VBG Base Excess Barometric Pressure Sodium 148 H Potassium 3.9 Chloride 111 H Carbon Dioxide 27 Anion Gap 10.0 BUN 37 H Creatinine 1.46 H Est Cr Clr Drug Dosing 25.5 Est GFR ( Amer) 39.3 Est GFR (Non-Af Amer) 33.9 BUN/Creatinine Ratio 25.5 H Glucose 86 Lactate 2.1 H* Calcium 9.0 Magnesium Total Bilirubin 1.3 H Direct Bilirubin 0.5 H AST 33 ALT 25 Alkaline Phosphatase 99 Troponin I 0.036 Total Protein 6.9 Albumin 3.0 L Lipase 146 TSH Free T4 Digoxin Influenza Type A (PCR) Influenza Type B (PCR) Blood Type Antibody Screen Crossmatch 04/29/18 04/29/18 04/30/18 18:15 18:15 00:29 WBC RBC Hgb Hct MCV MCH MCHC RDW Std Deviation RDW Coeff of Ran Plt Count MPV Immature Gran % (Auto) Neut % (Auto) Lymph % (Auto) [place] % (Auto) Eos % (Auto) Baso % (Auto) Immature Gran # (Auto) Neut # (Auto) Lymph # (Auto) [place] # (Auto) Eos # (Auto) Baso # (Auto) Hypochromasia Poikilocytosis Anisocytosis Target Cells Ovalocytes Echinocytes Acanthocytes (Spur) Schistocytes PT INR APTT PTT Ratio VBG pH 7.43 H VBG pCO2 46 VBG pO2 27 VBG HCO3 30 VBG O2 Saturation < 60.0 VBG Base Excess 5.2 Barometric Pressure 728.5 Sodium Potassium Chloride Carbon Dioxide Anion Gap BUN Creatinine Est Cr Clr Drug Dosing Est GFR ( Amer) Est GFR (Non-Af Amer) BUN/Creatinine Ratio Glucose Lactate 2.1 H* Calcium Magnesium Total Bilirubin Direct Bilirubin AST ALT Alkaline Phosphatase Troponin I Total Protein Albumin Lipase TSH Free T4 Digoxin 2.1 H Influenza Type A (PCR) Influenza Type B (PCR) Blood Type Antibody Screen Crossmatch 04/30/18 04/30/18 04/30/18 00:29 05:38 05:38 WBC 5.58 RBC 4.84 Hgb 11.5 L 11.7 L Hct 38.8 40.2 MCV 83.1 MCH 24.2 L MCHC 29.1 L RDW Std Deviation 69.5 H RDW Coeff of Ran 23.7 H Plt Count 287 MPV 11.8 H Immature Gran % (Auto) 0.4 Neut % (Auto) 72.8 Lymph % (Auto) 18.6 [place] % (Auto) 7.5 Eos % (Auto) 0.5 Baso % (Auto) 0.2 Immature Gran # (Auto) 0.02 Neut # (Auto) 4.06 Lymph # (Auto) 1.04 L [place] # (Auto) 0.42 Eos # (Auto) 0.03 Baso # (Auto) 0.01 Hypochromasia Present Poikilocytosis Anisocytosis Present Target Cells 1+ Ovalocytes 1+ Echinocytes 1+ Acanthocytes (Spur) 1+ Schistocytes Occasional PT INR APTT PTT Ratio VBG pH VBG pCO2 VBG pO2 VBG HCO3 VBG O2 Saturation VBG Base Excess Barometric Pressure Sodium 149 H Potassium 4.8 D Chloride 115 H Carbon Dioxide 31 Anion Gap 3.0 BUN 37 H Creatinine 1.35 H Est Cr Clr Drug Dosing 25.5 Est GFR ( Amer) 43.2 Est GFR (Non-Af Amer) 37.2 BUN/Creatinine Ratio 27.2 H Glucose 75 Lactate Calcium 8.8 Magnesium 3.0 H Total Bilirubin 1.2 H Direct Bilirubin 0.5 H AST 30 ALT 23 Alkaline Phosphatase 93 Troponin I Total Protein 6.6 Albumin 2.9 L Lipase TSH 13.900 H Free T4 0.95 Digoxin Influenza Type A (PCR) Influenza Type B (PCR) Blood Type Antibody Screen Crossmatch 04/30/18 04/30/18 04/30/18 05:38 05:38 07:55 WBC RBC Hgb Hct MCV MCH MCHC RDW Std Deviation RDW Coeff of Ran Plt Count MPV Immature Gran % (Auto) Neut % (Auto) Lymph % (Auto) [place] % (Auto) Eos % (Auto) Baso % (Auto) Immature Gran # (Auto) Neut # (Auto) Lymph # (Auto) [place] # (Auto) Eos # (Auto) Baso # (Auto) Hypochromasia Poikilocytosis Anisocytosis Target Cells Ovalocytes Echinocytes Acanthocytes (Spur) Schistocytes PT 12.8 H INR 1.3 H APTT PTT Ratio VBG pH VBG pCO2 VBG pO2 VBG HCO3 VBG O2 Saturation VBG Base Excess Barometric Pressure Sodium Potassium Chloride Carbon Dioxide Anion Gap BUN Creatinine Est Cr Clr Drug Dosing Est GFR ( Amer) Est GFR (Non-Af Amer) BUN/Creatinine Ratio Glucose Lactate 1.7 Calcium Magnesium Total Bilirubin Direct Bilirubin AST ALT Alkaline Phosphatase Troponin I Total Protein Albumin Lipase TSH Free T4 Digoxin 1.6 Influenza Type A (PCR) Influenza Type B (PCR) Blood Type Antibody Screen Crossmatch Diagnostic Findings April 07, 2018 TTE Interpretation Summary ([facility]): Mildly dilated LV chamber size with normal wall thickness. Severely reduced LV systolic function with moderate to severe global hypokinesis, EF 25-30%. RV cavity size normal with reduced RV systolic function. Mild aortic valve sclerosis without significant stenosis. Severe mitral regurgitation. Severe tricuspid regurgitation. Severe biatrial enlargement. EKG dated and timed 29-APR-2018 @ 17:39:40: Atrial flutter with 2:1 A-V conduction. Anterior infarct (cited on or before 29-APR-2018). ST & T wave abnormality, consider lateral ischemia. _ (1) GI bleed GI bleed type/associated pathology: unspecified gastrointestinal hemorrhage type Gastritis type: Qualified Code(s): K92.2 - Gastrointestinal hemorrhage, unspecified
--- NOTE | 2018-04-30 10:57 | Gastrointestinal Consultation ---
Date of Consultation April 30, 2018 Assessment & Plan (1) GI bleed: 77 year old female with chronic, severe comorbidities (dementia, CHF w/ EF 25%, CKD, emphysema, aflutter) who presntes from correction for evaluation of rectal bleeding. CT w/ fecal impaction ?stercoral proctitis. It appears she was started on eliquids/coumadin at an outside facility - after discussion with cardiology they feel as if the benefits do not outweigh the risks of continuing this medication retirement - Please page GI if family is present - I did try to call family with numbers provided, no answer - Would continue conservative measures at this point in time until we are able to discuss with family goals of care - Would hold Coumadin - Would hold Eliquis - Trend H&H - Transfuse PRN - Document all GI output - IV PPI BID - Will discuss with attending about bowel regimen - Consider palliative care consultation - Thank you for allowing us to participate in the care of this patient. Please call with any acute changes, questions or concerns. Please see addendum below with additional recommendation from my supervising physician. Present on Admission?: No Supervising Physician Co-Signing Physician Notes Attending attestation I have seen, examined this patient, and agree with the findings and above by our mid-level provider ANDREI Mckeon. -Chronically ill 77-year-old female presenting with a flutter and RVR in the setting of heart failure, likely new pneumonia/pulmonary mass, and painless rectal bleeding without hemodynamic compromise. -Differential diagnosis given the lack of hemodynamic instability and bright red nature would be hemorrhoidal, diverticular, Stercoral ulceration. CBC is stable. She was apparently placed on anticoagulation with both Coumadin as well as Eliquis correction, obviously this should be held. -Given her chronic comorbidities and very frail state she would be an extremely high risk endoscopic candidate, and we will honor the family's wishes for comfort care and no procedure if was candidate is desired. -WHIZZER spoke with the family, and family requested comfort care with a palliative care consult. -If any questions or concerns please do not hesitate to contact us will sign off. History of Present Illness Reason for Consultation: BRBPR Requesting Physician: Karan Attending Physician: Mal Russo MD History of Present Illness 77 year female with history of dementia, afib/flutter, CHD w/ EF 25%, emphysema , CKD-4. ERICA and others below who [facility] bleeding. Pt was seen and evaluated, chart reviewed. No family at bedside. There is an aid and three nurses there this AM. Pt is a poor historian. She is unable to provide any past medical history. She denies abd pain. No nausea, vomiting. Is not sure if she has been tolerating PO. She is unable to provide history of her bowel movements but per nursins she has had three episdoes of BRBPR. No melena. No coffee ground emesis/hematemesis. She has had recent admission which it was noted she was too high risk to initiated AC, however, appears coumadin/eliquis were on pts medication list this re- admission. It is unclear if these were started at her correction. CT: There is no evidence of solid organ injury in the abdomen or pelvis on this unenhanced examination. Moderate pleural effusions with bibasilar consolidation. This likely represents atelectasis. Correlate clinically for evidence of superimposed pneumonia.. Cardiomegaly. There is rectosigmoid fecal impaction. Mild rectal wall thickening and perirectal stranding suggest stercoral proctitis. Clinical correlation will be required. There is anasarca of the body wall, as well as mesenteric edema and trace free fluid in the abdomen and pelvis. These findings indicate fluid overload. Allergies Allergy/AdvReac Type Severity Reaction Status Date / Time adhesive Allergy Unknown allergy to Verified 04/29/18 18:22 tape, bandaids Beta-Blockers AdvReac Severe low heart Verified 04/29/18 18:22 (Beta-Adrenergic Bloc rate Home Medications Home Medications Medication Instructions Recorded Confirmed Type ranitidine HCl 300 mg PO QAM 04/07/18 04/29/18 History aspirin [Ecotrin Low Strength] 81 mg PO QAM 30 Days #30 tab 04/21/18 04/29/18 Rx digoxin 0.125 mg PO DAILY@1600 30 Days #30 04/21/18 04/29/18 Rx tab docusate sodium 100 mg PO BID 30 Days #60 cap 04/21/18 04/29/18 Rx furosemide 20 mg PO QAM 30 Days #30 tab 04/21/18 04/29/18 Rx levothyroxine [Synthroid] 125 mcg PO DAILYBB 30 Days #30 tab 04/21/18 04/29/18 Rx lisinopril [Zestril] 5 mg PO QAM 30 Days #30 tab 04/21/18 04/29/18 Rx sennosides [Senokot] 8.6 mg PO QAM 30 Days #30 tab 04/21/18 04/29/18 Rx apixaban [Eliquis] 2.5 mg PO BID 04/29/18 04/29/18 History ferrous sulfate 325 mg PO QAM 04/29/18 04/29/18 History metoprolol succinate 12.5 mg PO QAM 04/29/18 04/29/18 History multivitamin 1 tab PO QAM 04/29/18 04/29/18 History Patient History Medical History Hypertension (Chronic) Alzheimer disease (Chronic) CKD (chronic kidney disease) (Chronic) Cardiomyopathy (Chronic) DVT prophylaxis Social History marital status: Current Living Situation: Long-Term Feels Safe at Home: Yes Smoking Status: Unknown if ever smoked Hx Alcohol Use: No Hx Substance Use: No Beliefs That Will Affect Care: None Preferred Language: [place] Communication Ability Comment: Non-verbal Review of Systems Respiratory: no dyspnea Cardiovascular: no chest pain Gastrointestinal: no abdominal pain and no vomiting Physical Exam 2 Vital Signs (Past 24 Hours): Last Vital Signs Temp 36.3 C L 04/30/18 03:29 Pulse 115 H 04/30/18 03:29 Resp 18 04/30/18 03:29 BP 111/78 04/30/18 03:29 Pulse Ox 91 04/30/18 03:29 Constitutional: + ill appearing and + thin; no acute distress Respiratory: no respiratory distress, no labored breathing and no cough Auscultation: no crackles Cardiovascular: Rate/Rhythm: + tachycardic Heart Sounds: + murmur; no click and no cardiac rub Gastrointestinal (Abdomen): normal bowel sounds, soft, nontender, no hepatosplenomegaly Results & Data Laboratory Results 04/30/18 04/30/18 04/30/18 Range/Units 07:55 05:38 05:38 WBC (4.8-10.8) K/uL RBC (4.2-5.4) M/uL Hgb (12.0-16.0) g/dL Hct (37-47) % MCV (80-100) fL MCH (25-34) pg MCHC (32-36) g/dL RDW Std Deviation (36.4-46.3) fL RDW Coeff of Ran (11.5-14.5) % Plt Count (130-400) K/uL MPV (7.4-10.4) fL Immature Gran % (Auto) % Neut % (Auto) % Lymph % (Auto) % Harris % (Auto) % Eos % (Auto) % Baso % (Auto) % Immature Gran # (Auto) (0.00-0.02) K/uL Neut # (Auto) (1.4-6.5) K/uL Lymph # (Auto) (1.2-3.4) K/uL Harris # (Auto) (0.11-0.59) K/uL Eos # (Auto) (0-0.5) K/uL Baso # (Auto) (0-0.2) K/uL Hypochromasia Poikilocytosis Anisocytosis Target Cells Ovalocytes Echinocytes Acanthocytes (Spur) Schistocytes PT 12.8 H (9.0-12.0) Seconds INR 1.3 H (0.9-1.1) APTT (21.0-31.0) Seconds PTT Ratio VBG pH (7.36-7.41) VBG pCO2 (38-50) mmHg VBG pO2 mmHg VBG HCO3 mmol/L VBG O2 Saturation % VBG Base Excess mEq/L Barometric Pressure mm/Hg Sodium (136-145) mmol/L Potassium (3.5-5.1) mmol/L Chloride (98-107) mmol/L Carbon Dioxide (21-32) mmol/L Anion Gap (3-11) BUN (7-18) mg/dl Creatinine (0.6-1.2) mg/dl Est Cr Clr Drug Dosing ml/min Est GFR ( Amer) Est GFR (Non-Af Amer) BUN/Creatinine Ratio (10-20) Glucose (70-99) mg/dl Lactate 1.7 (0.4-2.0) mmol/L Calcium (8.5-10.1) mg/dl Magnesium (1.8-2.4) mg/dl Total Bilirubin (0.2-1) mg/dl Direct Bilirubin (0-0.2) mg/dl AST (15-37) U/L ALT (12-78) U/L Alkaline Phosphatase (45-117) U/L Troponin I (0-0.045) ng/ml Total Protein (6.4-8.2) gm/dl Albumin (3.4-5.0) gm/dl Lipase (73-393) U/L TSH (0.300-4.500) uIu/ml Free T4 (0.8-1.6) ng/dl Nasal Screen MRSA (PCR) Digoxin 1.6 (0.8-2.0) ng/ml Influenza Type A (PCR) (Neg) Influenza Type B (PCR) (Neg) Blood Type Antibody Screen Crossmatch 04/30/18 04/30/18 04/30/18 Range/Units 05:38 05:38 00:55 WBC 5.58 (4.8-10.8) K/uL RBC 4.84 (4.2-5.4) M/uL Hgb 11.7 L (12.0-16.0) g/dL Hct 40.2 (37-47) % MCV 83.1 (80-100) fL MCH 24.2 L (25-34) pg MCHC 29.1 L (32-36) g/dL RDW Std Deviation 69.5 H (36.4-46.3) fL RDW Coeff of Ran 23.7 H (11.5-14.5) % Plt Count 287 (130-400) K/uL MPV 11.8 H (7.4-10.4) fL Immature Gran % (Auto) 0.4 % Neut % (Auto) 72.8 % Lymph % (Auto) 18.6 % Harris % (Auto) 7.5 % Eos % (Auto) 0.5 % Baso % (Auto) 0.2 % Immature Gran # (Auto) 0.02 (0.00-0.02) K/uL Neut # (Auto) 4.06 (1.4-6.5) K/uL Lymph # (Auto) 1.04 L (1.2-3.4) K/uL Harris # (Auto) 0.42 (0.11-0.59) K/uL Eos # (Auto) 0.03 (0-0.5) K/uL Baso # (Auto) 0.01 (0-0.2) K/uL Hypochromasia Present Poikilocytosis Anisocytosis Present Target Cells 1+ Ovalocytes 1+ Echinocytes 1+ Acanthocytes (Spur) 1+ Schistocytes Occasional PT (9.0-12.0) Seconds INR (0.9-1.1) APTT (21.0-31.0) Seconds PTT Ratio VBG pH (7.36-7.41) VBG pCO2 (38-50) mmHg VBG pO2 mmHg VBG HCO3 mmol/L VBG O2 Saturation % VBG Base Excess mEq/L Barometric Pressure mm/Hg Sodium 149 H (136-145) mmol/L Potassium 4.8 D (3.5-5.1) mmol/L Chloride 115 H (98-107) mmol/L Carbon Dioxide 31 (21-32) mmol/L Anion Gap 3.0 (3-11) BUN 37 H (7-18) mg/dl Creatinine 1.35 H (0.6-1.2) mg/dl Est Cr Clr Drug Dosing 25.5 ml/min Est GFR ( Amer) 43.2 Est GFR (Non-Af Amer) 37.2 BUN/Creatinine Ratio 27.2 H (10-20) Glucose 75 (70-99) mg/dl Lactate (0.4-2.0) mmol/L Calcium 8.8 (8.5-10.1) mg/dl Magnesium 3.0 H (1.8-2.4) mg/dl Total Bilirubin 1.2 H (0.2-1) mg/dl Direct Bilirubin 0.5 H (0-0.2) mg/dl AST 30 (15-37) U/L ALT 23 (12-78) U/L Alkaline Phosphatase 93 (45-117) U/L Troponin I (0-0.045) ng/ml Total Protein 6.6 (6.4-8.2) gm/dl Albumin 2.9 L (3.4-5.0) gm/dl Lipase (73-393) U/L TSH 13.900 H (0.300-4.500) uIu/ml Free T4 0.95 (0.8-1.6) ng/dl Nasal Screen MRSA (PCR) Pending Digoxin (0.8-2.0) ng/ml Influenza Type A (PCR) (Neg) Influenza Type B (PCR) (Neg) Blood Type Antibody Screen Crossmatch 04/30/18 04/30/18 04/29/18 Range/Units 00:29 00:29 18:15 WBC (4.8-10.8) K/uL RBC (4.2-5.4) M/uL Hgb 11.5 L (12.0-16.0) g/dL Hct 38.8 (37-47) % MCV (80-100) fL MCH (25-34) pg MCHC (32-36) g/dL RDW Std Deviation (36.4-46.3) fL RDW Coeff of Ran (11.5-14.5) % Plt Count (130-400) K/uL MPV (7.4-10.4) fL Immature Gran % (Auto) % Neut % (Auto) % Lymph % (Auto) % Harris % (Auto) % Eos % (Auto) % Baso % (Auto) % Immature Gran # (Auto) (0.00-0.02) K/uL Neut # (Auto) (1.4-6.5) K/uL Lymph # (Auto) (1.2-3.4) K/uL Harris # (Auto) (0.11-0.59) K/uL Eos # (Auto) (0-0.5) K/uL Baso # (Auto) (0-0.2) K/uL Hypochromasia Poikilocytosis Anisocytosis Target Cells Ovalocytes Echinocytes Acanthocytes (Spur) Schistocytes PT (9.0-12.0) Seconds INR (0.9-1.1) APTT (21.0-31.0) Seconds PTT Ratio VBG pH (7.36-7.41) VBG pCO2 (38-50) mmHg VBG pO2 mmHg VBG HCO3 mmol/L VBG O2 Saturation % VBG Base Excess mEq/L Barometric Pressure mm/Hg Sodium (136-145) mmol/L Potassium (3.5-5.1) mmol/L Chloride (98-107) mmol/L Carbon Dioxide (21-32) mmol/L Anion Gap (3-11) BUN (7-18) mg/dl Creatinine (0.6-1.2) mg/dl Est Cr Clr Drug Dosing ml/min Est GFR ( Amer) Est GFR (Non-Af Amer) BUN/Creatinine Ratio (10-20) Glucose (70-99) mg/dl Lactate 2.1 H* (0.4-2.0) mmol/L Calcium (8.5-10.1) mg/dl Magnesium (1.8-2.4) mg/dl Total Bilirubin (0.2-1) mg/dl Direct Bilirubin (0-0.2) mg/dl AST (15-37) U/L ALT (12-78) U/L Alkaline Phosphatase (45-117) U/L Troponin I (0-0.045) ng/ml Total Protein (6.4-8.2) gm/dl Albumin (3.4-5.0) gm/dl Lipase (73-393) U/L TSH (0.300-4.500) uIu/ml Free T4 (0.8-1.6) ng/dl Nasal Screen MRSA (PCR) Digoxin 2.1 H (0.8-2.0) ng/ml Influenza Type A (PCR) (Neg) Influenza Type B (PCR) (Neg) Blood Type Antibody Screen Crossmatch 04/29/18 04/29/18 04/29/18 Range/Units 18:15 18:15 18:15 WBC (4.8-10.8) K/uL RBC (4.2-5.4) M/uL Hgb (12.0-16.0) g/dL Hct (37-47) % MCV (80-100) fL MCH (25-34) pg MCHC (32-36) g/dL RDW Std Deviation (36.4-46.3) fL RDW Coeff of Ran (11.5-14.5) % Plt Count (130-400) K/uL MPV (7.4-10.4) fL Immature Gran % (Auto) % Neut % (Auto) % Lymph % (Auto) % Harris % (Auto) % Eos % (Auto) % Baso % (Auto) % Immature Gran # (Auto) (0.00-0.02) K/uL Neut # (Auto) (1.4-6.5) K/uL Lymph # (Auto) (1.2-3.4) K/uL Harris # (Auto) (0.11-0.59) K/uL Eos # (Auto) (0-0.5) K/uL Baso # (Auto) (0-0.2) K/uL Hypochromasia Poikilocytosis Anisocytosis Target Cells Ovalocytes Echinocytes Acanthocytes (Spur) Schistocytes PT (9.0-12.0) Seconds INR (0.9-1.1) APTT (21.0-31.0) Seconds PTT Ratio VBG pH 7.43 H (7.36-7.41) VBG pCO2 46 (38-50) mmHg VBG pO2 27 mmHg VBG HCO3 30 mmol/L VBG O2 Saturation < 60.0 % VBG Base Excess 5.2 mEq/L Barometric Pressure 728.5 mm/Hg Sodium 148 H (136-145) mmol/L Potassium 3.9 (3.5-5.1) mmol/L Chloride 111 H (98-107) mmol/L Carbon Dioxide 27 (21-32) mmol/L Anion Gap 10.0 (3-11) BUN 37 H (7-18) mg/dl Creatinine 1.46 H (0.6-1.2) mg/dl Est Cr Clr Drug Dosing 25.5 ml/min Est GFR ( Amer) 39.3 Est GFR (Non-Af Amer) 33.9 BUN/Creatinine Ratio 25.5 H (10-20) Glucose 86 (70-99) mg/dl Lactate 2.1 H* (0.4-2.0) mmol/L Calcium 9.0 (8.5-10.1) mg/dl Magnesium (1.8-2.4) mg/dl Total Bilirubin 1.3 H (0.2-1) mg/dl Direct Bilirubin 0.5 H (0-0.2) mg/dl AST 33 (15-37) U/L ALT 25 (12-78) U/L Alkaline Phosphatase 99 (45-117) U/L Troponin I 0.036 (0-0.045) ng/ml Total Protein 6.9 (6.4-8.2) gm/dl Albumin 3.0 L (3.4-5.0) gm/dl Lipase 146 (73-393) U/L TSH (0.300-4.500) uIu/ml Free T4 (0.8-1.6) ng/dl Nasal Screen MRSA (PCR) Digoxin (0.8-2.0) ng/ml Influenza Type A (PCR) (Neg) Influenza Type B (PCR) (Neg) Blood Type Antibody Screen Crossmatch 04/29/18 04/29/18 04/29/18 Range/Units 18:15 18:15 18:15 WBC 6.55 (4.8-10.8) K/uL RBC 5.05 (4.2-5.4) M/uL Hgb 12.4 (12.0-16.0) g/dL Hct 41.6 (37-47) % MCV 82.4 (80-100) fL MCH 24.6 L (25-34) pg MCHC 29.8 L (32-36) g/dL RDW Std Deviation 69.2 H (36.4-46.3) fL RDW Coeff of Ran 23.7 H (11.5-14.5) % Plt Count 290 (130-400) K/uL MPV (7.4-10.4) fL Immature Gran % (Auto) 0.3 % Neut % (Auto) 79.5 % Lymph % (Auto) 13.0 % Harris % (Auto) 6.7 % Eos % (Auto) 0.3 % Baso % (Auto) 0.2 % Immature Gran # (Auto) 0.02 (0.00-0.02) K/uL Neut # (Auto) 5.21 (1.4-6.5) K/uL Lymph # (Auto) 0.85 L (1.2-3.4) K/uL Harris # (Auto) 0.44 (0.11-0.59) K/uL Eos # (Auto) 0.02 (0-0.5) K/uL Baso # (Auto) 0.01 (0-0.2) K/uL Hypochromasia Poikilocytosis Present Anisocytosis Target Cells 1+ Ovalocytes 1+ Echinocytes 1+ Acanthocytes (Spur) 1+ Schistocytes 1+ PT 12.8 H (9.0-12.0) Seconds INR 1.3 H (0.9-1.1) APTT 38.7 H (21.0-31.0) Seconds PTT Ratio 1.5 VBG pH (7.36-7.41) VBG pCO2 (38-50) mmHg VBG pO2 mmHg VBG HCO3 mmol/L VBG O2 Saturation % VBG Base Excess mEq/L Barometric Pressure mm/Hg Sodium (136-145) mmol/L Potassium (3.5-5.1) mmol/L Chloride (98-107) mmol/L Carbon Dioxide (21-32) mmol/L Anion Gap (3-11) BUN (7-18) mg/dl Creatinine (0.6-1.2) mg/dl Est Cr Clr Drug Dosing ml/min Est GFR ( Amer) Est GFR (Non-Af Amer) BUN/Creatinine Ratio (10-20) Glucose (70-99) mg/dl Lactate (0.4-2.0) mmol/L Calcium (8.5-10.1) mg/dl Magnesium (1.8-2.4) mg/dl Total Bilirubin (0.2-1) mg/dl Direct Bilirubin (0-0.2) mg/dl AST (15-37) U/L ALT (12-78) U/L Alkaline Phosphatase (45-117) U/L Troponin I (0-0.045) ng/ml Total Protein (6.4-8.2) gm/dl Albumin (3.4-5.0) gm/dl Lipase (73-393) U/L TSH (0.300-4.500) uIu/ml Free T4 (0.8-1.6) ng/dl Nasal Screen MRSA (PCR) Digoxin (0.8-2.0) ng/ml Influenza Type A (PCR) (Neg) Influenza Type B (PCR) (Neg) Blood Type O Positive Antibody Screen NEGATIVE Crossmatch See Detail 04/29/18 Range/Units 17:16 WBC (4.8-10.8) K/uL RBC (4.2-5.4) M/uL Hgb (12.0-16.0) g/dL Hct (37-47) % MCV (80-100) fL MCH (25-34) pg MCHC (32-36) g/dL RDW Std Deviation (36.4-46.3) fL RDW Coeff of Ran (11.5-14.5) % Plt Count (130-400) K/uL MPV (7.4-10.4) fL Immature Gran % (Auto) % Neut % (Auto) % Lymph % (Auto) % Harris % (Auto) % Eos % (Auto) % Baso % (Auto) % Immature Gran # (Auto) (0.00-0.02) K/uL Neut # (Auto) (1.4-6.5) K/uL Lymph # (Auto) (1.2-3.4) K/uL Harris # (Auto) (0.11-0.59) K/uL Eos # (Auto) (0-0.5) K/uL Baso # (Auto) (0-0.2) K/uL Hypochromasia Poikilocytosis Anisocytosis Target Cells Ovalocytes Echinocytes Acanthocytes (Spur) Schistocytes PT (9.0-12.0) Seconds INR (0.9-1.1) APTT (21.0-31.0) Seconds PTT Ratio VBG pH (7.36-7.41) VBG pCO2 (38-50) mmHg VBG pO2 mmHg VBG HCO3 mmol/L VBG O2 Saturation % VBG Base Excess mEq/L Barometric Pressure mm/Hg Sodium (136-145) mmol/L Potassium (3.5-5.1) mmol/L Chloride (98-107) mmol/L Carbon Dioxide (21-32) mmol/L Anion Gap (3-11) BUN (7-18) mg/dl Creatinine (0.6-1.2) mg/dl Est Cr Clr Drug Dosing ml/min Est GFR ( Amer) Est GFR (Non-Af Amer) BUN/Creatinine Ratio (10-20) Glucose (70-99) mg/dl Lactate (0.4-2.0) mmol/L Calcium (8.5-10.1) mg/dl Magnesium (1.8-2.4) mg/dl Total Bilirubin (0.2-1) mg/dl Direct Bilirubin (0-0.2) mg/dl AST (15-37) U/L ALT (12-78) U/L Alkaline Phosphatase (45-117) U/L Troponin I (0-0.045) ng/ml Total Protein (6.4-8.2) gm/dl Albumin (3.4-5.0) gm/dl Lipase (73-393) U/L TSH (0.300-4.500) uIu/ml Free T4 (0.8-1.6) ng/dl Nasal Screen MRSA (PCR) Digoxin (0.8-2.0) ng/ml Influenza Type A (PCR) Neg for Influ A (Neg) Influenza Type B (PCR) Neg for Influ B (Neg) Blood Type Antibody Screen Crossmatch _ (1) GI bleed GI bleed type/associated pathology: unspecified gastrointestinal hemorrhage type Gastritis type: Qualified Code(s): K92.2 - Gastrointestinal hemorrhage, unspecified
[2018-04-30 12:57] LABS: Hemoglobin 10.8 g/dL (12.0-16.0)
[2018-04-30] MEDS ORDERED: LORazepam 1 MG/2 ML VIAL IV PRN ×2 (14:15→15:01)
--- NOTE | 2018-04-30 15:47 | Palliative Care Consultation ---
Date of Consultation April 30, 2018 Assessment & Plan (1) Palliative care encounter: Patient is a 77-year-old female with a history of dementia, hypertension, recently diagnosed hypothyroidism, chronic kidney disease stage III, a flutter, systolic CHF who was recently admitted to [facility] from 04/07- 04/21 for altered mental status and a flutter. Patient's EF at that time was 20- 25% with global hypokinesis. Patient was discharged on 04/21 to [facility] where she was under residential care. On 04/29 patient was noted to have bright red blood per rectum and was sent to the ER. Patient was passing clots in the emergency room, initial hemoglobin was 12.4. Hemoglobin this a.m. was 10.4. Due to her a flutter patient was started on Eliquis, low-dose aspirin as well as Coumadin at [facility]. At [facility] family reports that she did not recognize family, she was restless and confused. They did state that she did complain of abdominal pain 2 days prior to admission. Patient is now unresponsive to family, restless and agitated at times, pulling out her IVs. Family reports patient received 1 dose of IV Ativan in the emergency room which was very effective in making her calm. Family finds it very difficult to see her restless like this-they understand that medications to keep her calm will also decrease her responsiveness. Patient's initial CODE STATUS was a code 3-after discussion with family they all agree to make her a DNR. Discussed IV fluids if patient is not able to eat or drink-they will discuss with each other when to transition to comfort care. -CODE STATUS-patient is now a DNR -Restlessness-1 mg IV Ativan very effective, would continue Ativan 1 mg IV every 4 hours as needed for comfort -At this time family would like to continue current treatment with IV Synthroid as well as metoprolol for heart rate control -Will continue to follow and assist with medical decision making regarding transition to comfort care only. (2) GI bleed: Family does not want any invasive testing including colonoscopy or upper endoscopy GI bleed type/associated pathology: unspecified gastrointestinal hemorrhage type Gastritis type: Qualified Code(s): K92.2 - Gastrointestinal hemorrhage, unspecified (3) Atypical atrial flutter: Family does want to continue IV beta-franny for now to control rate (4) Systolic heart failure: Family aware that hydration with IV fluids will portion heart failure-we will continue to family life counselor regarding comfort care (5) Restlessness: Good response in the emergency room with Ativan 1 mg IV-would continue as needed every 4 hours (6) Altered mental status: Patient with symptoms of dementia prior to this admission-patient was not recognizing family at the correction. Control restlessness Altered mental status type: unspecified Coma depth: Coma timing : Qualified Code(s): R41.82 - Altered mental status, unspecified History of Present Illness Reason for Consultation: Address goals of care as well as CODE STATUS Requesting Physician: Dr. Mal Russo Attending Physician: Mal Russo MD History of Present Illness Patient seen and examined-at bedside is patient's , 2 sons, 2 daughter-in -law's, 2 daughters, and 1 granddaughter. Patient is a 77-year-old female with a history of dementia, hypertension, recently diagnosed hypothyroidism, chronic kidney disease stage III, a flutter, systolic CHF who was recently admitted to [facility] from 04/07- 04/21 for altered mental status and a flutter. Patient's EF at that time was 20- 25% with global hypokinesis. Patient was discharged on 04/21 to [facility] where she was under residential care. On 04/29 patient was noted to have bright red blood per rectum and was sent to the ER. Patient was passing clots in the emergency room, initial hemoglobin was 12.4. Hemoglobin this a.m. was 10.4. Due to her a flutter patient was started on Eliquis, low-dose aspirin as well as Coumadin at [facility]. At [facility] family reports that she did not recognize family, she was restless and confused. They did state that she did complain of abdominal pain 2 days prior to admission. Patient is now unresponsive to family, restless and agitated at times, pulling out her IVs. Family reports patient received 1 dose of IV Ativan in the emergency room which was very effective in making her calm. Family finds it very difficult to see her restless like this-they understand that medications to keep her calm will also decrease her responsiveness. Patient's initial CODE STATUS was a code 3-after discussion with family they all agree to make her a DNR. Discussed IV fluids if patient is not able to eat or drink-they will discuss with each other when to transition to comfort care. Allergies Allergy/AdvReac Type Severity Reaction Status Date / Time adhesive Allergy Unknown allergy to Verified 04/29/18 18:22 tape, bandaids Beta-Blockers AdvReac Severe low heart Verified 04/29/18 18:22 (Beta-Adrenergic Bloc rate Home Medications Home Medications Medication Instructions Recorded Confirmed Type ranitidine HCl 300 mg PO QAM 04/07/18 04/29/18 History aspirin [Ecotrin Low Strength] 81 mg PO QAM 30 Days #30 tab 04/21/18 04/29/18 Rx digoxin 0.125 mg PO DAILY@1600 30 Days #30 04/21/18 04/29/18 Rx tab docusate sodium 100 mg PO BID 30 Days #60 cap 04/21/18 04/29/18 Rx furosemide 20 mg PO QAM 30 Days #30 tab 04/21/18 04/29/18 Rx levothyroxine [Synthroid] 125 mcg PO DAILYBB 30 Days #30 tab 04/21/18 04/29/18 Rx lisinopril [Zestril] 5 mg PO QAM 30 Days #30 tab 04/21/18 04/29/18 Rx sennosides [Senokot] 8.6 mg PO QAM 30 Days #30 tab 04/21/18 04/29/18 Rx apixaban [Eliquis] 2.5 mg PO BID 04/29/18 04/29/18 History ferrous sulfate 325 mg PO QAM 04/29/18 04/29/18 History metoprolol succinate 12.5 mg PO QAM 04/29/18 04/29/18 History multivitamin 1 tab PO QAM 04/29/18 04/29/18 History Patient History Medical History Hypertension (Chronic) Alzheimer disease (Chronic) CKD (chronic kidney disease) (Chronic) Cardiomyopathy (Chronic) DVT prophylaxis Social History marital status: Current Living Situation: Skilled Nursing Feels Safe at Home: Yes Smoking Status: Unknown if ever smoked Hx Alcohol Use: No Hx Substance Use: No Beliefs That Will Affect Care: None Preferred Language: Irish Communication Ability Comment: Non-verbal Review of Systems Unable to obtain due to patient's current altered mental status Physical Exam 2 Vital Signs (Past 24 Hours): Last Vital Signs Temp 36.3 C L 04/30/18 15:07 Pulse 109 H 04/30/18 15:07 Resp 13 04/30/18 15:07 BP 121/88 04/30/18 15:07 Pulse Ox 96 04/30/18 15:07 Constitutional: + thin Respiratory: Unlabored Cardiovascular: Tachycardic Gastrointestinal (Abdomen): No grimace with light palpation Skin: Warm to touch Neurologic: Not oriented to person place or time Time Spent Attending Total time spent 70 minutes with greater than 50% of the time spent at bedside discussing CODE STATUS, goals of care as well as comfort care
[2018-04-30 19:11] LABS: Hematocrit (blood only) 38.1 % (37-47); Hemoglobin 11.4 g/dL (12.0-16.0)
[2018-04-30] MEDS ORDERED: DEXTROSE 5% 500 ML IV ONE (19:45)
[2018-05-01] MEDS: PANTOprazole 40 MG in DEXTROSE 5% 100 ML IV SCH ×2 (03:56→08:54)
[2018-05-01] MEDS: LORazepam 0.5 MG/1 ML VIAL IV PRN ×2 (04:07→08:17)
[2018-05-01 07:58] LABS: Hemoglobin 10.4 g/dL (12.0-16.0); Mean Corpuscular Hgb Conc 28.9 g/dL (32-36); Mean Corpuscular Volume 83.9 fL (80-100); Platelet Count 201 K/uL (130-400); RDW Coefficient of Variation 23.6 % (11.5-14.5); RDW Standard Deviation 70.2 fL (36.4-46.3); Red Blood Count 4.29 M/uL (4.2-5.4); White Blood Count 6.03 K/uL (4.8-10.8)
[2018-05-01] MEDS: FUROSEMIDE 20 MG in SYRINGE 0 ML IV SCH (08:05)
[2018-05-01 08:19] LABS: Albumin Globulin Ratio 0.8 (0.9-2); Albumin Level 2.5 gm/dl (3.4-5.0); BUN Creatinine Ratio 22.3 (10-20); Bilirubin,Total 1.2 mg/dl (0.2-1); Calcium 8.1 mg/dl (8.5-10.1); Creatinine Clr Calc Pharmacy 24.2 ml/min; Est GFR (African American) 40.6; Globulin 3.3 gm/dl (2.5-4.0); Potassium 3.8 mmol/L (3.5-5.1); Total Protein 5.8 gm/dl (6.4-8.2)
[2018-05-01 08:25] LABS: Anisocytosis Present; Basophils # (auto) 0.02 K/uL (0-0.2); Basophils % (auto) 0.3 %; Eosinophils # (auto) 0.04 K/uL (0-0.5); Eosinophils % (auto) 0.7 %; Immature Granulocytes # (auto) 0.02 K/uL (0.00-0.02); Immature Granulocytes % (auto) 0.3 %; Lymphocytes # (auto) 1.05 K/uL (1.2-3.4); Lymphocytes % (auto) 17.4 %; Monocytes # (auto) 0.44 K/uL (0.11-0.59); Monocytes % (auto) 7.3 %; Neutrophils # (auto) 4.46 K/uL (1.4-6.5); Poikilocytosis Present; Polychromasia 1+
[2018-05-01] MEDS: LEVOTHYROXINE SODIUM IV SCH (08:54)
[2018-05-01] MEDS: METOPROLOL SUCC 25MG EXT REL TAB PO SCH (08:56)
[2018-05-01] MEDS ORDERED: DEXTROSE 5% 1,000 ML IV SCH (09:00)
--- NOTE | 2018-05-01 09:33 | Cardiology Progress Note ---
Date of Service May 01, 2018 Cardiology Attending: Events noted. Prognosis poor. Agree with comfort measures. Assessment & Plan (1) GI bleed: Presentation with probable lower GI bleeding. Hold ASA Anticoagulation discontinued with risks, once again, noted to be greater than the benefit. Further management as per hospitalist service and GI (2) Heart failure, systolic, with acute decompensation: Etiology unclear, ? ischemic, ? tachycardia induced Volume status appears normovolemic. (3) Atypical atrial flutter: Recommend rate control without anticoagulation Digoxin is on hold (mild digitalis excess on presentation) Resume digoxin at 125 mcg only on MWF when able to take PO Continue IV metoprolol until able to take oral metoprolol succinate Titrate metoprolol succinate for rate control as blood pressure permits (4) Digoxin toxicity: Hold digoxin See above (5) ASCVD (arteriosclerotic cardiovascular disease): Chart history of ASCVD and remote CABG x 2 in 1989 (details unknown) Recommend conservative medical management of the above issues Subjective Patient seen and examined. Chart, medications, and telemetry review. Somnolent. Unable to any information. No family present. Telemetry: Currently with atrial flutter at 110 bpm. Atrial flutter throughout with variable block. No signficant pauses. No periods of time. Physical Exam 2 Vital Signs (Past 24 Hours): Last Vital Signs Temp 36.3 C L 05/01/18 03:33 Pulse 103 H 05/01/18 03:33 Resp 18 05/01/18 03:33 BP 106/73 05/01/18 03:33 Pulse Ox 90 05/01/18 03:33 Physical Exam: General: NAD. HEENT: Normocephalic. Atraumatic. PER. Conjunctiva pink, sclera pale. Neck: Normal JVP. Heart: Regular at 110 bpm. Systolic murmur heart throughout. Lung: Diminished. Decreased. Scattered rhonchi. No wheeze. Abdomen: +BS. Extremities: No clubbing, cyanosis, or edema. Results & Data Laboratory Results Laboratory Results - last 24 hr 04/30/18 04/30/18 04/30/18 00:55 12:17 18:39 WBC RBC Hgb 10.8 L 11.4 L Hct 37.0 38.1 MCV MCH MCHC RDW Std Deviation RDW Coeff of Ran Plt Count Immature Gran % (Auto) Neut % (Auto) Lymph % (Auto) [place] % (Auto) Eos % (Auto) Baso % (Auto) Immature Gran # (Auto) Neut # (Auto) Lymph # (Auto) [place] # (Auto) Eos # (Auto) Baso # (Auto) Polychromasia Poikilocytosis Anisocytosis Acanthocytes (Spur) Sodium Potassium Chloride Carbon Dioxide Anion Gap BUN Creatinine Est Cr Clr Drug Dosing Est GFR ( Amer) Est GFR (Non-Af Amer) BUN/Creatinine Ratio Glucose POC Glucose Calcium Total Bilirubin AST ALT Alkaline Phosphatase Total Protein Albumin Globulin Albumin/Globulin Ratio Nasal Screen MRSA (PCR) Negative 05/01/18 05/01/18 05/01/18 07:17 07:21 07:21 WBC 6.03 RBC 4.29 Hgb 10.4 L Hct 36.0 L MCV 83.9 MCH 24.2 L MCHC 28.9 L RDW Std Deviation 70.2 H RDW Coeff of Ran 23.6 H Plt Count 201 Immature Gran % (Auto) 0.3 Neut % (Auto) 74.0 Lymph % (Auto) 17.4 [place] % (Auto) 7.3 Eos % (Auto) 0.7 Baso % (Auto) 0.3 Immature Gran # (Auto) 0.02 Neut # (Auto) 4.46 Lymph # (Auto) 1.05 L [place] # (Auto) 0.44 Eos # (Auto) 0.04 Baso # (Auto) 0.02 Polychromasia 1+ Poikilocytosis Present Anisocytosis Present Acanthocytes (Spur) 1+ Sodium 149 H Potassium 3.8 D Chloride 113 H Carbon Dioxide 30 Anion Gap 6.0 BUN 32 H Creatinine 1.42 H Est Cr Clr Drug Dosing 24.2 Est GFR ( Amer) 40.6 Est GFR (Non-Af Amer) 35.0 BUN/Creatinine Ratio 22.3 H Glucose 87 POC Glucose 95 Calcium 8.1 L Total Bilirubin 1.2 H AST 27 ALT 22 Alkaline Phosphatase 81 Total Protein 5.8 L Albumin 2.5 L Globulin 3.3 Albumin/Globulin Ratio 0.8 L Nasal Screen MRSA (PCR) _ (1) GI bleed GI bleed type/associated pathology: unspecified gastrointestinal hemorrhage type Gastritis type: Qualified Code(s): K92.2 - Gastrointestinal hemorrhage, unspecified
[2018-05-01] MEDS: METOPROLOL TARTRATE 1 MG/ML VIAL IV PRN (10:23)
--- NOTE | 2018-05-01 14:17 | Palliative Care Progress Note ---
Date of Service May 01, 2018 Assessment & Plan (1) Palliative care encounter: -77-year-old female with a H/O of dementia, hypertension, hypothyroidism, CKD III ,systolic CHF with recent admit in 04/25 with AMS. Patient was discharged on 04/21 to [facility] where she was under residential care. On 04/29 patient was noted to have bright red blood per rectum and was sent to the ER. Patient was passing clots in the emergency room, initial hemoglobin was 12.4. Hemoglobin this a.m. was 10.4. Family declined invasive testing. -Patient continues to be unresponsive to family, intermittent restlessness which I noted on my assessment as well. -Agitation has improved since yesterday post Ativan. She has received one dose of Ativan this morning. -Per assessment, patient has audible secretions, her mouth is fixed open, she is unresponsive, tachycardic in the 100-110's, and severely cachectic with little reserve. -Patient to remain DNR. Lengthy conversation with pt and daughter, Lissa at the bedside regarding GOALS OF CARE. -Readdressed IV fluids with the family and explained that I do feel she is entering the active dying phase of life and we discussed full transition to HANGER which patient and daughter agree to move forward with, along with discontinuing the IV Fluids, will institute oral mouth care for comfort. -Additionally they would like to stop non-invasive monitoring and blood draws. -We discussed comfort medications such as Scopalamine and Roxanol for which I ordered a Scopalamine patch and Roxanol 5mg SL Q2 PRN for air hunger and pain. -We discussed discontinuing all non-essential medications as she is non- responsive and unable to swallow pills, which they are in agreement with. -They expressed that her karthik is important to her and would like a Wedding Coordinator to come and see the patient. They mentioned having the wax bleacher from [facility] come which they will reach out to. -The patient's nurse, Kyra and Dr. Russo made aware and are in support of transition as her quality of life is poor and probability of returning to baseline status is low. -Family updated that patient may be transferred to a different room. -Set expectation with family that I anticipate life-expectancy to be days to up to a week. -Answered all family questions at the bedside and provided book "gone from my sight" to the family. -PPS: 10% (2) GI bleed: Family does not want any invasive testing including colonoscopy or upper endoscopy (3) Atypical atrial flutter: Family does want to continue IV beta-franny for now to control rate (4) Systolic heart failure: -Patient currently on IV Fluids at 80 mL/hour. Discussion with family leading to more HANGER and fluids have been discontinued. (5) Restlessness: Good response in the emergency room with Ativan 1 mg IV-would continue as needed every 4 hours. Pt received one dose this morning. (6) Altered mental status: Patient with symptoms of dementia prior to this admission-patient was not recognizing family at the senior living. Restlessness controlled. Patient unresponsive Subjective Pt obtunded with audible oral secretions and consistent furrowed brow. Pt receivied one dose of Ativan today and pt reports she is far less agitated compared to yesterday. Pt and daughter Lissa at the bedside. Pt with mottling around knees and severe cachexia. See A&P - lengthy discussion with plan to transition to full HANGER. Physical Exam 2 Vital Signs (Past 24 Hours): Last Vital Signs Temp 36.4 C L 05/01/18 11:11 Pulse 94 H 05/01/18 11:11 Resp 19 05/01/18 11:11 BP 111/74 05/01/18 11:11 Pulse Ox 94 05/01/18 11:11 Constitutional: + cachectic (severe) Eyes: eyes closed and did not open to voice. Per daughter, not WALES Respiratory: Pt on 2LNC, but mouth breathing. Lungs rhonchitic and coarse throughout. Cardiovascular: Rate/Rhythm: regular rate and + tachycardic Gastrointestinal (Abdomen): Percussion/Palpation: + abdomen tender and abdomen soft Skin: no rashes, warm and dry + turgor decreased Genitourinary: phoenix in situ Time Spent Midlevel Total time spent 45 minutes with > 50% of that time spent reviewing the chart, assessing the patient, discussing GOALS OF CARE with family and explaining end of life anticipatory signs with the family, along with discussing POC with the IDT. _ (1) GI bleed GI bleed type/associated pathology: unspecified gastrointestinal hemorrhage type Gastritis type: Qualified Code(s): K92.2 - Gastrointestinal hemorrhage, unspecified (2) Altered mental status Altered mental status type: unspecified Coma depth: Coma timing: Qualified Code(s): R41.82 - Altered mental status, unspecified
[2018-05-01] MEDS: MoRPHine SULFATE 5 MG/0.25 ML UDP PO PRN ×2 (14:39→19:14)
--- NOTE | 2018-05-01 16:06 | Hospitalist Progress Note ---
Date of Service May 01, 2018 Assessment & Plan (1) GI bleed: This 77-year-old female presents with gastrointestinal bleed. Gastrointestinal bleed, bright blood per rectum Hgb has downtrended but is above 10 bright red blood blood had been noted by nurses on 04/30/18 but no blood per rectum since have been on protonics no plans for GI interventions comfort care as per patient's family after discussions with palliative care service Elevation of lactic acid resolved from admission Hypernatrema and Hyperchloremic likely due from normal saline IV fluids on this admission had been switched to D5 water without much improvements in labs after today the patient's family members would not want daily labs acute kidney injury on chronic kidney disease stage III had acute kidney injury on admission that resolved with IV fluids [id number] systolic congestive heart failure. volume overload on the CAT scan of the abdomen and pelvis and also bilateral moderate pleural effusions and mild congestive heart failure on chest x-ray on admission previous known effusions were difficult to manage due to low blood pressures with lasix will give additional IV lasix as patient with audible gurgling sounds atrial fibrillation with rapid ventricular response has been seen by cardiology service and is in atrial flutter will hold off digoxin at this time family would allow for IV metoprolol if patient more awake and alert, can possibly resume oral metoprolol Hypothyroidism The TSH of 13.9 on this admission is an improvement of 27.2 which was seen in the beginning of the previous hospital stay was given IV Levothyroxine will hold off further IV Levoythroxine at this time Dementia and delirium Reorient as needed scopalamine patch and Roxanol 5mg SL Q2 PRN for air hunger and pain. Deep venous thrombosis prophylaxis, sequential compression devices for now. DNR/DNI, comfort care family members [phone], son [phone] Subjective Patient seen and examined at the bedside generally sedated gurgling sounds heard on exam breathing on nasal cannula oxygen no reported episode of blood in bowel movements Physical Exam 2 Vital Signs (Past 24 Hours): Last Vital Signs Temp 36.4 C L 05/01/18 11:11 Pulse 94 H 05/01/18 11:11 Resp 19 05/01/18 11:11 BP 111/74 05/01/18 11:11 Pulse Ox 94 05/01/18 11:11 Physical Exam: General: sleeping, difficult to arouse Neck: gurgling sounds heard on exam Lungs: breathing on nasal cannula oxygen Heart rate: regular rate Abdomen: soft, bowel sounds present Legs: no leg edema _ (1) GI bleed GI bleed type/associated pathology: unspecified gastrointestinal hemorrhage type Gastritis type: Qualified Code(s): K92.2 - Gastrointestinal hemorrhage, unspecified
[2018-05-01] MEDS ORDERED: FUROSEMIDE 20 MG in SYRINGE 0 ML IV ONE ×2 (16:15→19:01)
[2018-05-01] MEDS: SCOPOLAMINE 1.5 MG TDSY TD SCH (16:21)
[2018-05-01] MEDS: CHECK SCOPOLAMINE PATCH PLACEMENT SCH ×2 (16:22→23:57)
[2018-05-01 16:33] LABS: BUN Creatinine Ratio 21.3 (10-20); Calcium 8.6 mg/dl (8.5-10.1); Creatinine Clr Calc Pharmacy 26.5 ml/min; Est GFR (African American) 45.2; Potassium 3.3 mmol/L (3.5-5.1)
[2018-05-01] MEDS ORDERED: PANTOprazole 40 MG in SYRINGE 0 ML IV SCH (21:00)
[2018-05-02] MEDS: MoRPHine SULFATE 5 MG/0.25 ML UDP PO PRN ×3 (02:28→16:52)
[2018-05-02] MEDS: CHECK SCOPOLAMINE PATCH PLACEMENT SCH ×2 (07:46→16:51)
[2018-05-02] MEDS: METOPROLOL SUCC 25MG EXT REL TAB PO SCH (07:47)
--- NOTE | 2018-05-02 07:53 | Hospitalist Progress Note ---
Date of Service May 02, 2018 Assessment & Plan (1) GI bleed: This 77-year-old female presented with gastrointestinal bleed. Gastrointestinal bleed, bright blood per rectum Hgb has downtrended but is above 10 as of 05/01/18 bright red blood blood had been noted by nurses on 04/30/18 but no blood per rectum since had previously been on IV protonics, no plans for endoscopy/colonoscopy interventions as per discussion with gastroenterology team, palliative care team , patient's family members comfort care as per patient's family after discussions with palliative care service on 05/01/18 as per patient's family, no further lab draws at this time Elevation of lactic acid resolved from admission acute kidney injury on chronic kidney disease stage III had acute kidney injury on admission that resolved with IV fluids previously as per patient's family, no further lab draws at this time Hypernatrema and Hyperchloremic may be due from normal saline IV fluids on this admission but patient also these lab abnormalities on initial lab test of this hospital presentation patient had received D5 water to attempt to resolve these lab abnormalities and confusion however minimal subsequent improvement as of the last labs on 05/01/18 as per patient's family, no further lab draws at this time [id number] systolic congestive heart failure. -volume overload on the CAT scan of the abdomen and pelvis and also bilateral moderate pleural effusions and mild congestive heart failure on chest x-ray on admission -previous known effusions were difficult to manage due to low blood pressures with lasix -patient noted to have worsening respiratory status on 05/01/18 such as gurgling noises with breathing, continues to have same oxygen requirement of 4 liters/ minute nasal cannula -on comfort care as of 05/01/18 -patient's family allowing for intermittent Lasix despite their wishes of not permitting lab draws -the breathing is better as of 05/02/18, no gurgling sounds audible, will continue intermittent lasix -patient's family allowing for phoenix, monitor urine output atrial fibrillation with rapid ventricular response -had been seen by cardiology service and is in atrial flutter -will hold off digoxin at this time -family would allow for IV metoprolol; if patient more awake and alert, can possibly resume oral metoprolol -of note, the heart rate can be bradycardic when at rest Hypothyroidism -The TSH of 13.9 on this admission is an improvement of 27.2 which was seen in the beginning of the previous hospital stay was given IV Levothyroxine -will hold off further IV Levoythroxine at this time to minimize IV volume infusions which may worsen breathing Dementia and delirium -Reorient as needed -continue scopalamine patch which was started on 05/01/18 by palliative care service -palliative care service has instituted Roxanol 5mg SL Q2 PRN for air hunger and pain and discussed with hospitalist on 05/02/18 -as per nursing staff, patient staff has not required Roxanol frequently and hospitalist will modify Roxanol prn dosing Deep venous thrombosis prophylaxis, sequential compression devices DNR/DNI, comfort care family members [phone], son [phone] Subjective Patient seen and examined at the bedside generally lethargic breathing on nasal cannula oxygen has phoenix on exam, patient can open her eyes and tries to push examiner away, but not verbal no apparent distress and not in pain. no gurgling sounds heard today no reported episode of blood in bowel movements Physical Exam 2 Vital Signs (Past 24 Hours): Last Vital Signs Temp 36.4 C L 05/01/18 11:11 Pulse 94 H 05/01/18 11:11 Resp 19 05/01/18 11:11 BP 111/74 05/01/18 11:11 Pulse Ox 94 05/01/18 11:11 Physical Exam: General: lethargic, nonverbal Eyes: can open eyes spontaneously Mouth: no obstruction seen externally Neck: patient able to move the neck Lungs: congestion of the lung bases, no wheezing Heart: heart sounds distant, radial pulses regular Abdomen; soft, nontender, bowel sounds present Extremities: no edema, able to offer resistance to medical exam _ (1) GI bleed GI bleed type/associated pathology: unspecified gastrointestinal hemorrhage type Gastritis type: Qualified Code(s): K92.2 - Gastrointestinal hemorrhage, unspecified
[2018-05-02] MEDS ORDERED: FUROSEMIDE 20 MG in SYRINGE 0 ML IV SCH (09:00)
[2018-05-02] MEDS ORDERED: FUROSEMIDE 10 MG in SYRINGE 0 ML IV ONE (16:00)
[2018-05-03] MEDS: CHECK SCOPOLAMINE PATCH PLACEMENT SCH ×4 (00:36→23:17)
[2018-05-03] MEDS: METOPROLOL SUCC 25MG EXT REL TAB PO SCH (08:25)
--- NOTE | 2018-05-03 11:07 | Hospitalist Progress Note ---
Date of Service May 03, 2018 Assessment & Plan (1) GI bleed: This 77-year-old female presented with gastrointestinal bleed. Gastrointestinal bleed, bright blood per rectum Hgb has downtrended but is above 10 as of 05/01/18 bright red blood blood had been noted by nurses on 04/30/18 but no blood per rectum since had previously been on IV protonics, no plans for endoscopy/colonoscopy interventions as per discussion with gastroenterology team, palliative care team , patient's family members during this hospital stay, patient's mental status deteriorated and has become obtunded comfort care as per patient's family after discussions with palliative care service on 05/01/18 as per patient's family, no further lab draws at this time and no IV fluids Elevation of lactic acid resolved from admission acute kidney injury on chronic kidney disease stage III had acute kidney injury on admission that resolved with IV fluids previously as per patient's family, no further lab draws at this time Hypernatrema and Hyperchloremic may be due from normal saline IV fluids on this admission but patient also these lab abnormalities on initial lab test of this hospital presentation patient had received D5 water to attempt to resolve these lab abnormalities and confusion however minimal subsequent improvement as of the last labs on 05/01/18 as per patient's family, no further lab draws at this time and no further IV fluids Rzhfk-he-[id number] systolic congestive heart failure. -volume overload on the CAT scan of the abdomen and pelvis and also bilateral moderate pleural effusions and mild congestive heart failure on chest x-ray on admission -previous known effusions were difficult to manage due to low blood pressures with lasix -patient noted to have worsening respiratory status on 05/01/18 such as gurgling noises with breathing, continues to have same oxygen requirement of 4 liters/ minute nasal cannula -on comfort care as of 05/01/18 -patient's family allowed for intermittent Lasix despite their wishes of not permitting lab draws -the breathing is better as of 05/02/18, no gurgling sounds audible, will continue intermittent lasix -patient's family allows for phoenix -05/03/18: at this time patient's breathing is not labored and no gurgling sounds heard. will hold off on further Lasix as patient not on IV fluids due to comfort care measures as per her family atrial fibrillation with rapid ventricular response -had been seen by cardiology service and is in atrial flutter -hold off digoxin at this time -family would allow for IV metoprolol if needed -at this time, patient not awake and not alert to take oral medications Hypothyroidism -The TSH of 13.9 on this admission is an improvement of 27.2 which was seen in the beginning of the previous hospital stay was given IV Levothyroxine -hold off further IV Levoythroxine Dementia and delirium/ Obtunded -Reorient as needed -continue scopalamine patch which was started on 05/01/18 by palliative care service -palliative care service has instituted Roxanol 5mg SL Q2 PRN for air hunger and pain and discussed with hospitalist on 05/02/18 -as per nursing staff, patient staff has not required Roxanol frequently and hospitalist had modified Roxanol prn dosing -there does not appear to be a need for morphine drip at this time as patient's breathing appears non-labored and no acute pain when witnessed by family and medical staff at this recent time Deep venous thrombosis prophylaxis, sequential compression devices DNR/DNI, comfort care, overall prognosis is poor family members [phone], son [phone] Subjective Patient seen and examined at the bedside breathing on nasal cannula oxygen has phoenix on exam, patient can move arms and toes when touched by the physician on physical exam and offer some upper extremity resistance but patient is generally lethargic and sleeping no apparent distress and not in pain. no gurgling sounds heard today no reported episode of blood in bowel movements Physical Exam 2 Vital Signs (Past 24 Hours): Last Vital Signs Temp 36.4 C L 05/01/18 11:11 Pulse 94 H 05/01/18 11:11 Resp 19 05/01/18 11:11 BP 111/74 05/01/18 11:11 Pulse Ox 94 05/01/18 11:11 Physical Exam: General: sleeping, somewhat obtunded Neck: no gurgling sounds heard on exam Lungs: breathing on nasal cannula oxygen, decreased breath sounds of lung bases Heart rate: regular rate Abdomen: soft, bowel sounds present Legs: no leg edema. patient able to spontaneously move toes and give upper extremity resistance during exam _ (1) GI bleed GI bleed type/associated pathology: unspecified gastrointestinal hemorrhage type Gastritis type: Qualified Code(s): K92.2 - Gastrointestinal hemorrhage, unspecified
[2018-05-03] MEDS: MoRPHine SULFATE 5 MG/0.25 ML UDP PO PRN ×2 (13:08→20:44)
[2018-05-04] MEDS: CHECK SCOPOLAMINE PATCH PLACEMENT SCH ×2 (07:30→16:18)
[2018-05-04] MEDS: METOPROLOL SUCC 25MG EXT REL TAB PO SCH (09:06)
--- NOTE | 2018-05-04 09:07 | Hospitalist Progress Note ---
Date of Service May 04, 2018 Assessment & Plan (1) GI bleed: This 77-year-old female presented with gastrointestinal bleed. Gastrointestinal bleed, bright blood per rectum Hgb has downtrended but is above 10 as of 05/01/18 bright red blood blood had been noted by nurses on 04/30/18 but no blood per rectum since had previously been on IV protonics, no plans for endoscopy/colonoscopy interventions as per discussion with gastroenterology team, palliative care team , patient's family members during this hospital stay, patient's mental status deteriorated and has become obtunded comfort care as per patient's family after discussions with palliative care service on 05/01/18 as per patient's family, no further lab draws at this time and no IV fluids Elevation of lactic acid resolved from admission as per last set of labs no further lab draws on comfort care status acute kidney injury on chronic kidney disease stage III had acute kidney injury on admission that resolved with IV fluids previously as per patient's family, no further lab draws at this time Hypernatrema and Hyperchloremic may be due from normal saline IV fluids on this admission but patient also these lab abnormalities on initial lab test of this hospital presentation patient had received D5 water to attempt to resolve these lab abnormalities and confusion however minimal subsequent improvement as of the last labs on 05/01/18 as per patient's family, no further lab draws at this time and no further IV fluids Yqqlb-[id number]-nchqxak systolic congestive heart failure. -volume overload on the CAT scan of the abdomen and pelvis and also bilateral moderate pleural effusions and mild congestive heart failure on chest x-ray on admission -previous known effusions were difficult to manage due to low blood pressures with lasix -patient noted to have worsening respiratory status on 05/01/18 such as gurgling noises with breathing, continues to have same oxygen requirement of 4 liters/ minute nasal cannula -on comfort care as of 05/01/18 -patient's family allowed for intermittent Lasix despite their wishes of not permitting lab draws -the breathing is better as of 05/02/18, no gurgling sounds audible, will continue intermittent lasix -patient's family allows for phoenix -05/03/18: at this time patient's breathing is not labored and no gurgling sounds heard. will hold off on further Lasix as patient not on IV fluids due to comfort care measures as per her family atrial fibrillation with rapid ventricular response -had been seen by cardiology service and is in atrial flutter -hold off digoxin at this time -family would allow for IV metoprolol if needed -at this time, patient not awake and not alert to take oral medications Hypothyroidism -The TSH of 13.9 on this admission is an improvement of 27.2 which was seen in the beginning of the previous hospital stay was given IV Levothyroxine -hold off further IV Levoythroxine Dementia and delirium/ Obtunded -Reorient as needed -continue scopalamine patch which was started on 05/01/18 by palliative care service -palliative care service has instituted Roxanol 5mg SL Q2 PRN for air hunger and pain and discussed with hospitalist on 05/02/18 -as per nursing staff, patient staff has not required Roxanol frequently -appreciate palliative care recommendations DNR/DNI, comfort care, overall prognosis is poor Disposition: patient's had questions about whether patient may eventually return to [facility] on comfort care. Medical doctor discussed with palliative care service and ed case manager to be updated and so patient's family can be presented options family members [phone], son [phone] Subjective eyes, opened, breathing on nasal cannula with mouth open, no gurgling sounds, not verbal, reactive to touch the extremities but minimal goal directed movement patient family at bedside. despite patient eyes opened, she has not been verbal as per the family patient's had questions about whether patient may eventually return to [facility] on comfort care Medical doctor discussed with palliative care service and ed case manager to be updated and so patient's family can be presented options Physical Exam 2 Vital Signs (Past 24 Hours): Last Vital Signs Temp 36.4 C L 05/01/18 11:11 Pulse 94 H 05/01/18 11:11 Resp 19 05/01/18 11:11 BP 111/74 05/01/18 11:11 Pulse Ox 94 05/01/18 11:11 Physical Exam: General: eyes, opened, breathing on nasal cannula with mouth open, no gurgling sounds, not verbal, reactive to touch the extremities but minimal goal directed movement Eyes: pupils reactive to light Mouth: dry mucous membranes Lungs: rhonchi, no wheezing, no gurgling sounds Heart: regular rate Abdomen: bowel sounds present : phoenix Extremities: no edema _ (1) GI bleed GI bleed type/associated pathology: unspecified gastrointestinal hemorrhage type Gastritis type: Qualified Code(s): K92.2 - Gastrointestinal hemorrhage, unspecified
--- NOTE | 2018-05-04 09:58 | Palliative Care Progress Note ---
Date of Service May 04, 2018 Assessment & Plan (1) Palliative care encounter: -77-year-old female with a H/O of dementia, hypertension, hypothyroidism, CKD III ,systolic CHF with recent admit in 04/25 with AMS. Patient was discharged on 04/21 to [facility] where she was under residential care. On 04/29 patient was noted to have bright red blood per rectum and was sent to the ER. Patient was passing clots in the emergency room, initial hemoglobin was 12.4. Hemoglobin this a.m. was 10.4. Family declined invasive testing. -Patient continues to be unresponsive to family, but does open eyes intermittently per -Agitation has improved and was a non-issue over the weekend. -Roxanol dosing was decreased over the weekend and she has not required medication for pain since Friday; however, patient does withdraw arms and legs to touch and expresses audible moans. -Will increase frequency of Roxanol for moaning and pain noted by assessment with withdraw to touch/turns. Will monitor outcome of response. -Patient does withdraw to touch on assessment and with turns. -Patient does moan and has mouth open with neck tilted back with chin pointing to ceiling. -Pt with regular heart rate in the 80's, appears to be breathing regularly and no furrowed brow -Audible secretions have diminished with Scope patch and intermittent Lasix that was provided over the weekend -Patient continues to be at end of life and this was discussed with IDT -I did discuss the possibility of transferring patient to [facility] with Hospice over next few days based on stability - CM to follow and provide a Hospice list. -Set expectation with family that I anticipate life-expectancy to be days to up to a week. -Answered all family questions at the bedside and provided book "gone from my sight" to the family on Friday, which was at the bedside when I was there today. -PPS: 10% (2) GI bleed: Family does not want any invasive testing including colonoscopy or upper endoscopy (3) Atypical atrial flutter: Family does want to continue IV beta-franny for now to control rate (4) Systolic heart failure: -Patient received IV Lasix over the weekend as discussed with family; however, this has been discontinued for [employer] and breathing appears comfortable (5) Restlessness: (6) Altered mental status: Patient with symptoms of dementia prior to this admission-patient was not recognizing family at the [facility]. Restlessness resolved Patient unresponsive Subjective Pt unresponsive, but per does open eyes intermittently pt with regular heart rate in the 80's, appears to be breathing regularly and no furrowed brow Audible secretions have diminished with Scope patch and intermittent Lasix that was provided over the weekend Patient continues to be at end of life Pt has not received Roxanol over the weekend; however, patient does withdraw arms and legs to touch and expresses audible moans. Pt at bedside during visit. I did discuss the possibility of transferring patient to [facility] with Hospice over next few days based on stability Physical Exam 2 Vital Signs (Past 24 Hours): Last Vital Signs Temp 36.4 C L 05/01/18 11:11 Pulse 94 H 05/01/18 11:11 Resp 19 05/01/18 11:11 BP 111/74 05/01/18 11:11 Pulse Ox 94 05/01/18 11:11 Constitutional: + cachectic (severe) Cardiovascular: Rate/Rhythm: regular rate; not tachycardic Gastrointestinal (Abdomen): Percussion/Palpation: + abdomen tender and abdomen soft Skin: no rashes, warm and dry + turgor decreased pt with skin excoriation on forarms, could be from scratching. skin protection pads in place small excoriation patches on bottom of left foot - per this has been present, not new. Supervising Physician Co-Signing Physician Notes Patient seen and examined, multiple family at bedside. Patient minimally responsive, appears comfortable PE: No acute distress HEENT: EOMI, gaze focused at times. Dry mucous membranes Neck: Hyperextended Respirations: Unlabored CV: Regular rate Extremities: Warm to touch Agree with above note, assessment and plan as per DANISHA Ricci Will continue to follow to provide support to family and assist with any medical decision making Time Spent Midlevel Time spent 35 minutes with > 50% of that time spent reviewing the chart, assessing the patient, discussing symptom management with IDT and family. _ (1) GI bleed GI bleed type/associated pathology: unspecified gastrointestinal hemorrhage type Gastritis type: Qualified Code(s): K92.2 - Gastrointestinal hemorrhage, unspecified (2) Altered mental status Altered mental status type: unspecified Coma depth: Coma timing: Qualified Code(s): R41.82 - Altered mental status, unspecified
[2018-05-04] MEDS: MoRPHine SULFATE 5 MG/0.25 ML UDP PO PRN ×2 (11:58→20:00)
[2018-05-04] MEDS: SCOPOLAMINE 1.5 MG TDSY TD SCH (16:17)
[2018-05-05] MEDS: MoRPHine SULFATE 5 MG/0.25 ML UDP PO PRN ×4 (00:04→16:41)
[2018-05-05] MEDS: CHECK SCOPOLAMINE PATCH PLACEMENT SCH ×3 (00:05→15:31)
[2018-05-05] MEDS: METOPROLOL SUCC 25MG EXT REL TAB PO SCH (08:54)
--- NOTE | 2018-05-05 16:12 | Hospitalist Progress Note ---
Date of Service May 05, 2018 Assessment & Plan (1) GI bleed: This 77-year-old female presented with gastrointestinal bleed. Gastrointestinal bleed, bright blood per rectum Hgb has downtrended but is above 10 as of 05/01/18 bright red blood blood had been noted by nurses on 04/30/18 but no blood per rectum since had previously been on IV protonics, no plans for endoscopy/colonoscopy interventions as per discussion with gastroenterology team, palliative care team , patient's family members during this hospital stay, patient's mental status deteriorated and has become obtunded comfort care as per patient's family after discussions with palliative care service on 05/01/18 as per patient's family, no further lab draws at this time and no IV fluids Elevation of lactic acid resolved from admission as per last set of labs no further lab draws on comfort care status acute kidney injury on chronic kidney disease stage III had acute kidney injury on admission that resolved with IV fluids previously as per patient's family, no further lab draws at this time Hypernatrema and Hyperchloremic may be due from normal saline IV fluids on this admission but patient also these lab abnormalities on initial lab test of this hospital presentation patient had received D5 water to attempt to resolve these lab abnormalities and confusion however minimal subsequent improvement as of the last labs on 05/01/18 as per patient's family, no further lab draws at this time and no further IV fluids [id number] systolic congestive heart failure. -volume overload on the CAT scan of the abdomen and pelvis and also bilateral moderate pleural effusions and mild congestive heart failure on chest x-ray on admission -previous known effusions were difficult to manage due to low blood pressures with lasix -patient noted to have worsening respiratory status on 05/01/18 such as gurgling noises with breathing, continues to have same oxygen requirement of 4 liters/ minute nasal cannula -on comfort care as of 05/01/18 -patient's family allowed for intermittent Lasix despite their wishes of not permitting lab draws -the breathing is better as of 05/02/18, no gurgling sounds audible, will continue intermittent lasix -patient's family allows for phoenix -05/03/18: at this time patient's breathing is not labored and no gurgling sounds heard. will hold off on further Lasix as patient not on IV fluids due to comfort care measures as per her family atrial fibrillation with rapid ventricular response -had been seen by cardiology service and is in atrial flutter -hold off digoxin at this time -family would allow for IV metoprolol if needed -at this time, patient not awake and not alert to take oral medications Hypothyroidism -The TSH of 13.9 on this admission is an improvement of 27.2 which was seen in the beginning of the previous hospital stay was given IV Levothyroxine -hold off further IV Levoythroxine Dementia and delirium/ Obtunded -Reorient as needed -continue scopalamine patch which was started on 05/01/18 by palliative care service -palliative care service has instituted Roxanol 5mg SL Q2 PRN for air hunger and pain and discussed with hospitalist on 05/02/18 -as per nursing staff, patient staff has not required Roxanol frequently -appreciate palliative care recommendations DNR/DNI, comfort care, overall prognosis is poor family members [phone], son [phone] Disposition: Case management documents plans of possible [facility] hospice care set up for tomorrow on 05/06/18 if medical stable Subjective Patient was seen and examined earlier today and her condition appears to be getting worse She appeared to be more somnolent. reactive to touch of the extremities today. minimal movements of extremities returned in afternoon to see the patient and her family as Case management documents plans of possible [facility] hospice care set up for tomorrow on Patient snoring. Palliative care Dr. Lambert and patient's family at bedside. Dr. Lambert also concerned that patient may be deteriorating fast. But patient is comfortable and not in distress Physical Exam 2 Vital Signs (Past 24 Hours): Last Vital Signs Temp 36.4 C L 05/01/18 11:11 Pulse 94 H 05/01/18 11:11 Resp 19 05/01/18 11:11 BP 111/74 05/01/18 11:11 Pulse Ox 94 05/01/18 11:11 Physical Exam: General: breathing on nasal cannula with mouth open, no gurgling sounds, not verbal, reactive to touch the extremities but minimal goal directed movement Eyes: pupils minimally reactive to light Mouth: dry mucous membranes Lungs: rhonchi, no wheezing, no gurgling sounds Heart: regular rate Abdomen: bowel sounds present : phoenix Extremities: no edema _ (1) GI bleed GI bleed type/associated pathology: unspecified gastrointestinal hemorrhage type Gastritis type: Qualified Code(s): K92.2 - Gastrointestinal hemorrhage, unspecified
--- NOTE | 2018-05-05 17:45 | Palliative Care Progress Note ---
Date of Service May 05, 2018 Assessment & Plan (1) Palliative care encounter: -77-year-old female with a H/O of dementia, hypertension, hypothyroidism, CKD III ,systolic CHF with recent admit in 04/25 with AMS. Patient was discharged on 04/[address] [facility] where she was under residential care. On 04/29 patient was noted to have bright red blood per rectum and was sent to the ER. Patient was passing clots in the emergency room, initial hemoglobin was 12.4. Hemoglobin this a.m. was 10.4. Family declined invasive testing. -Patient continues to be unresponsive to voice or touch-eyes open, gaze is unfocused -Agitation has improved-patient calm on exam -Roxanol -effective, required 5 doses in the past 24 hours for comfort -Audible secretions have diminished with Scope patch -Patient continues to be at end of life , end-of-life issues discussed at length with family -Patient is scheduled for possible transfer to facility tomorrow for end-of- life care-discussed with attending physician regarding assessing patient in the a.m. to determine if she is stable enough for transfer -PPS: 10% (2) GI bleed: Family does not want any invasive testing including colonoscopy or upper endoscopy (3) Atypical atrial flutter: Family does want to continue IV beta-franny for now to control rate (4) Systolic heart failure: -No further Lasix, patient is n.p.o. (5) Restlessness: Resolved (6) Altered mental status: Restlessness resolved Patient unresponsive to voice or touch Subjective Patient seen and examined-family at bedside including patient's , son and daughter. Patient with eyes open-gaze is unfocused today, was focused yesterday Neck is more hyperextended, toes now mottled and cool on the right-patient approaching end-of-life Review of Systems Unobtainable due to reduced consciousness Physical Exam 2 Vital Signs (Past 24 Hours): Last Vital Signs Temp 36.4 C L 05/01/18 11:11 Pulse 94 H 05/01/18 11:11 Resp 19 05/01/18 11:11 BP 111/74 05/01/18 11:11 Pulse Ox 94 05/01/18 11:11 Constitutional: Patient appears comfortable, no response to voice or touch Eyes: Eyes open, gaze is unfocused ENMT: Dry mucous membranes Neck: Hyperextended Respiratory: Unlabored Cardiovascular: Regular rate Gastrointestinal (Abdomen): Soft, no grimace with palpation Skin: Toes on right cool and mottled, toes on left cool -no mottling Neurologic: Unresponsive to voice or touch Time Spent Attending Total time spent 40 minutes with greater than 50% of the time spent at bedside discussing goals of care as well as discussing end-of-life issues at length with family at bedside _ (1) GI bleed GI bleed type/associated pathology: unspecified gastrointestinal hemorrhage type Gastritis type: Qualified Code(s): K92.2 - Gastrointestinal hemorrhage, unspecified (2) Altered mental status Altered mental status type: unspecified Coma depth: Coma timing: Qualified Code(s): R41.82 - Altered mental status, unspecified
[2018-05-06] MEDS: CHECK SCOPOLAMINE PATCH PLACEMENT SCH ×4 (00:30→23:31)
[2018-05-06] MEDS: MoRPHine SULFATE 5 MG/0.25 ML UDP PO PRN (04:58)
[2018-05-06] MEDS: METOPROLOL SUCC 25MG EXT REL TAB PO SCH (08:28)
--- NOTE | 2018-05-06 09:44 | Hospitalist Progress Note ---
Date of Service May 06, 2018 Assessment & Plan (1) GI bleed: This 77-year-old female presented with gastrointestinal bleed. Gastrointestinal bleed, bright blood per rectum Hgb has downtrended but is above 10 as of 05/01/18 bright red blood blood had been noted by nurses on 04/30/18 but no blood per rectum since had previously been on IV protonics, no plans for endoscopy/colonoscopy interventions as per discussion with gastroenterology team, palliative care team , patient's family members during this hospital stay, patient's mental status deteriorated and has become obtunded comfort care as per patient's family after discussions with palliative care service on 05/01/18 as per patient's family, no further lab draws at this time and no IV fluids Elevation of lactic acid resolved from admission as per last set of labs no further lab draws on comfort care status acute kidney injury on chronic kidney disease stage III had acute kidney injury on admission that resolved with IV fluids previously as per patient's family, no further lab draws at this time Hypernatrema and Hyperchloremic may be due from normal saline IV fluids on this admission but patient also these lab abnormalities on initial lab test of this hospital presentation patient had received D5 water to attempt to resolve these lab abnormalities and confusion however minimal subsequent improvement as of the last labs on 05/01/18 as per patient's family, no further lab draws at this time and no further IV fluids [id number] systolic congestive heart failure. -volume overload on the CAT scan of the abdomen and pelvis and also bilateral moderate pleural effusions and mild congestive heart failure on chest x-ray on admission -previous known effusions were difficult to manage due to low blood pressures with lasix -patient noted to have worsening respiratory status on 05/01/18 such as gurgling noises with breathing, continues to have same oxygen requirement of 4 liters/ minute nasal cannula -on comfort care as of 05/01/18 -patient's family allowed for intermittent Lasix despite their wishes of not permitting lab draws -the breathing is better as of 05/02/18, no gurgling sounds audible, will continue intermittent lasix -patient's family allows for [place] -05/03/18: at this time patient's breathing is not labored and no gurgling sounds heard. will hold off on further Lasix as patient not on IV fluids due to comfort care measures as per her family atrial fibrillation with rapid ventricular response -had been seen by cardiology service and is in atrial flutter -hold off digoxin at this time -family would allow for IV metoprolol if needed -at this time, patient not awake and not alert to take oral medications Hypothyroidism -The TSH of 13.9 on this admission is an improvement of 27.2 which was seen in the beginning of the previous hospital stay was given IV Levothyroxine -hold off further IV Levoythroxine Dementia and delirium/ Obtunded -Reorient as needed -continue scopalamine patch which was started on 05/01/18 by palliative care service -palliative care service has instituted Roxanol 5mg SL Q2 PRN for air hunger and pain and discussed with hospitalist on 05/02/18 -as per nursing staff, patient staff has not required Roxanol frequently -appreciate palliative care recommendations DNR/DNI, comfort care, overall prognosis is poor family members [phone], son [phone] Disposition: "Discussed with patient's and his daughter in law at bedside that as time goes by, patient will be closer passing away and that it would be difficult to predict when this would happen. Have discussed with patient's family that the actual act of transporting patient to possibly [facility] on hospice care is unlikely to exacerbate patient's demise but there is a chance that she can pass away coincidentally in between plans for transportation, actual transportation, and arrival to [facility] Patient's expressed that he needs more time to consider and that he would like his adult children to come later which would be in the late afternoon to discuss with them Hospitalist have informed housing case manager to hold off on [facility] hospice transfer until further notice" Subjective Patient was seen and examined this AM continues to be somnolent. eyes opened. no tracking of eye movements non verbal breathing with mouth opened fists are clenched. when examined helped open the clench fists, patient does not close her hands into fists or offer resistance pulses palpable of lower extremities but somewhat blue toes of left foot pedal pulses intact no swelling of extremities abdomen is soft, bowel sounds audible Discussed with patient's and his daughter in law at bedside that as time goes by, patient will be closer passing away and that it would be difficult to predict when this would happen. Have discussed with patient's family that the actual act of transporting patient to possibly [facility] on hospice care is unlikely to exacerbate patient's demise but there is a chance that she can pass away coincidentally in between plans for transportation, actual transportation, and arrival to [facility] Patient's expressed that he needs more time to consider and that he would like his adult children to come later which would be in the late afternoon to discuss with them Hospitalist have informed housing case manager to hold off on [facility] hospice transfer until further notice Physical Exam 2 Vital Signs (Past 24 Hours): Last Vital Signs Temp 36.4 C L 05/01/18 11:11 Pulse 94 H 05/01/18 11:11 Resp 19 05/01/18 11:11 BP 111/74 05/01/18 11:11 Pulse Ox 94 05/01/18 11:11 Physical Exam: continues to be somnolent. eyes opened. no tracking of eye movements non verbal breathing with mouth opened, lungs sounds are clear Heart rate regular rate fists are clenched. when examined helped open the clench fists, patient does not close her hands into fists or offer resistance pulses palpable of lower extremities but somewhat blue toes of left foot pedal pulses intact no swelling of extremities abdomen is soft, bowel sounds audible _ (1) GI bleed GI bleed type/associated pathology: unspecified gastrointestinal hemorrhage type Gastritis type: Qualified Code(s): K92.2 - Gastrointestinal hemorrhage, unspecified
--- NOTE | 2018-05-06 13:31 | Palliative Care Progress Note ---
Date of Service May 06, 2018 Assessment & Plan (1) Palliative care encounter: -77-year-old female with a H/O of dementia, hypertension, hypothyroidism, CKD III ,systolic CHF with recent admit in 04/25 with AMS. Patient was discharged on 04/21 to [facility] where she was under residential care. On 04/29 patient was noted to have bright red blood per rectum and was sent to the ER. Patient was passing clots in the emergency room, initial hemoglobin was 12.4. Hemoglobin this a.m. was 10.4. Family declined invasive testing. -Patient continues to be minimally responsive to voice or touch-eyes open, gaze is focused on exam today -Agitation has improved-patient calm on exam -Roxanol -effective, required 3 doses in the past 24 hours for comfort -Audible secretions have diminished with Scope patch -Patient continues to be at end of life , discussed transfer back to facility under hospice care with at bedside -Patient appears stable enough for transfer if able to be done today-we will need to reassess if patient is not able to be transferred until tomorrow -PPS: 10% (2) GI bleed: Family does not want any invasive testing including colonoscopy or upper endoscopy (3) Atypical atrial flutter: Family does want to continue IV beta-franny for now to control rate (4) Systolic heart failure: -No further Lasix, patient is n.p.o. (5) Restlessness: Resolved (6) Altered mental status: Restlessness resolved Patient minimally responsive to voice or touch Subjective Patient awake, unable to respond to simple questions. Patient's gaze was focused during my conversation with her. She did wrinkle her brow at a statement I made-she appeared to understand what I was saying. Patient's entered room at the end of my visit-discussed having her return to [facility] under hospice care. Patient has increased mottling in her feet-I believe she would be stable for trans-for today, however my concern is if she cannot be transferred till tomorrow we may lose her window of opportunity. Discussed with case management Patient required 3 doses of PO/SL morphine at 5 mg x3 in the past 24 hours- patient has been calm, appears comfortable. Review of Systems Unobtainable due to reduced consciousness Physical Exam 2 Vital Signs (Past 24 Hours): Last Vital Signs Temp 36.4 C L 05/01/18 11:11 Pulse 94 H 05/01/18 11:11 Resp 19 05/01/18 11:11 BP 111/74 05/01/18 11:11 Pulse Ox 94 05/01/18 11:11 Physical Exam: PE: Patient appears comfortable, no facial grimace HEENT: Gaze is focused on exam today Respirations: Unlabored CV: Regular rate Abdomen: Soft, no grimace with light palpation Extremities: Warm, increased mottling left foot Neuro: Awake, unable to respond Time Spent Attending Total time spent 35 minutes with greater than 50% of the time spent at bedside assessing patient's comfort as well as stability for transfer as well as discussing possible transfer with patient's and case management _ (1) GI bleed GI bleed type/associated pathology: unspecified gastrointestinal hemorrhage type Gastritis type: Qualified Code(s): K92.2 - Gastrointestinal hemorrhage, unspecified (2) Altered mental status Altered mental status type: unspecified Coma depth: Coma timing: Qualified Code(s): R41.82 - Altered mental status, unspecified
--- NOTE | 2018-05-07 06:00 | Death Summary ---
Date of Service May 07, 2018 Pronouncement Note Date and Time of Date of : 05/07/18 Time of : 06:00 Contributing Factors (1) Palliative care encounter: (2) GI bleed: (3) Atypical atrial flutter: (4) Systolic heart failure: (5) Restlessness: (6) Altered mental status: Summary Additional details: Dr. Mays to accomplish discharge summary. Additional Data Confirmation of : no pulse, no respirations, no heart sounds and pupils fixed and dilated Family: at bedside Attending/PCP notified?: No Attending physician: Mal Russo MD
== END 2018-05-07 06:00 | disposition expired | DRG 377 ==
LOC: ED 16:26 → 2S 20:43 → 4E 05-01 17:00
DX: R64 Cachexia; N17.9 Acute kidney failure, unspecified; Z88.8 Allergy status to other drugs, medicaments and biological substances; I25.10 Atherosclerotic heart disease of native coronary artery without angina pectoris; F02.81 Dementia in other diseases classified elsewhere, unspecified severity, with behavioral disturbance; K57.91 Diverticulosis of intestine, part unspecified, without perforation or abscess with bleeding; I50.23 Acute on chronic systolic (congestive) heart failure; Z79.899 Other long term (current) drug therapy; I13.0 Hypertensive heart and chronic kidney disease with heart failure and stage 1 through stage 4 chronic kidney disease, or unspecified chronic kidney disease; G30.9 Alzheimer's disease, unspecified; Z95.1 Presence of aortocoronary bypass graft; Z66 Do not resuscitate; I48.91 Unspecified atrial fibrillation; Z91.048 Other nonmedicinal substance allergy status; N18.3 Chronic kidney disease, stage 3 (moderate); R89.2 Abnormal level of other drugs, medicaments and biological substances in specimens from other organs, systems and tissues; I42.0 Dilated cardiomyopathy; Z79.01 Long term (current) use of anticoagulants; Z80.8 Family history of malignant neoplasm of other organs or systems; T50.3X5A Adverse effect of electrolytic, caloric and water-balance agents, initial encounter; Z80.42 Family history of malignant neoplasm of prostate; Z87.891 Personal history of nicotine dependence; K21.9 Gastro-esophageal reflux disease without esophagitis; I48.92 Unspecified atrial flutter; K63.3 Ulcer of intestine; E87.0 Hyperosmolality and hypernatremia; R91.8 Other nonspecific abnormal finding of lung field; E87.8 Other disorders of electrolyte and fluid balance, not elsewhere classified; Z83.3 Family history of diabetes mellitus; K64.9 Unspecified hemorrhoids; Z96.643 Presence of artificial hip joint, bilateral; Z79.82 Long term (current) use of aspirin; E03.9 Hypothyroidism, unspecified; D50.9 Iron deficiency anemia, unspecified; Z51.5 Encounter for palliative care